=== PATIENT | male | born 1940 | race American Indian/Alaskan Native ===

== ENCOUNTER 2018-03-06 12:22 | Emergency (ER) | payer MEDICARE, MEDICAID ==
--- NOTE | 2018-03-06 12:47 | EDM.PDOC ---
ED HPI GENERAL MEDICAL PROBLEM - General Chief Complaint: Flank Pain Stated Complaint: by ambulance Time Seen by Provider: 03/06/18 12:47 Source of Information: Reports: Patient, EMS, Old Records, RN, RN Notes Reviewed History Limitations: Reports: No Limitations - History of Present Illness INITIAL COMMENTS - FREE TEXT/NARRATIVE: Arrives from home by ambulance with pt stating he is unsure why he his here, but needs to be "checked out" by the doctor. Several family members have come and gone from the pt's ER room to give Hx and state there concerns. Some of the family were having a dispute about an unknown issue, and several were clearly intoxicated. The pt denies any alcohol use. Pt admits to generalized weakness, flank pain yesterday but not currently, loss of appetite, and fatigue. He reports having a non-injury fall 2 days ago. Pt is not able to provide any further history. Onset: Gradual, Unknown/Unsure Duration: Constant, Getting Worse Location: Reports: Generalized Severity: Moderate Improves with: Reports: None Worsens with: Reports: None Associated Symptoms: Reports: No Other Symptoms - Related Data Allergies Allergy/AdvReac Type Severity Reaction Status Date / Time dapsone Allergy Cannot Verified 03/06/18 13:32 Remember isoniazid Allergy Nausea and Verified 03/06/18 13:32 Vomiting tuberculin, purified protein Allergy Swelling Verified 03/06/18 13:32 deriva [Tuberculin,Purif.Prot.Deriv.] Home Meds: Home Meds . [Unable to Verify Home Med List] 03/06/18 [History] Past Medical History HEENT History: Reports: Hard of Hearing, Impaired Vision Cardiovascular History: Reports: High Cholesterol Respiratory History: Reports: TB (treated and negative at follow up per family.) Musculoskeletal History: Reports: Back Pain, Chronic, Osteoarthritis Dermatologic History: Reports: Eczema Social & Family History - Family History Family Medical History: Unobtainable - Tobacco Use Smoking Status *Q: Unknown Ever Smoked - Caffeine Use Caffeine Use: Reports: Coffee - Alcohol Use Alcohol Use History: No Alcohol Use in Last Twelve Months: No - Recreational Drug Use Recreational Drug Use: No Drug Use in Last 12 Months: No - Living Situation & Occupation Living situation: Reports: with Family Occupation: Retired ED ROS GENERAL - Review of Systems Review Of Systems: ROS reveals no pertinent complaints other than HPI. ED EXAM, RENAL/ - Physical Exam Exam: See Below Exam Limited By: No Limitations General Appearance: Alert, No Apparent Distress, Other (frail, elderly, and chronically ill appearing) Eye Exam: Bilateral Eye: Normal Inspection Ears: Normal External Exam, Hearing Grossly Normal Nose: Normal Inspection Throat/Mouth: Normal Lips, Normal Oropharynx, Normal Voice, No Airway Compromise , Other (dry oral membranes) Head: Atraumatic, Normocephalic Neck: Normal Inspection, Supple, Non-Tender, Full Range of Motion Respiratory/Chest: No Respiratory Distress, No Accessory Muscle Use, Chest Non- Tender, Decreased Breath Sounds, Crackles, Rhonchi (Rt upper chest, faint). No : Wheezing Cardiovascular: Regular Rate, Rhythm, No Edema, Tachycardia GI/Abdominal: Normal Bowel Sounds, Soft, Non-Tender, No Distention. No: Guarding, Rigid, Rebound (Male) Exam: Deferred Rectal (Males) Exam: Deferred Back Exam: Normal Inspection. No: CVA Tenderness (L), CVA Tenderness (R) Extremities: Normal Inspection, Normal Range of Motion Neurological: Alert, Oriented, No Motor/Sensory Deficits, Other (generalized weakness) Psychiatric: Normal Mood Skin Exam: Warm, Dry, Intact Course - Vital Signs Last Recorded V/S: Last Vital Signs Temp 37.8 C 03/06/18 12:31 Pulse 99 03/06/18 12:31 Resp 18 03/06/18 12:31 BP 128/66 03/06/18 12:31 Pulse Ox 96 03/06/18 12:31 - Orders/Labs/Meds Orders: Active Orders 24 hr Category Date Time Status Peripheral IV Care [RC] . DIRECTED Care 03/06/18 12:47 Active Chest w Cont [CT] Urgent Exams 03/06/18 14:25 Taken CULTURE BLOOD [BC] Stat Lab 03/06/18 12:50 Received CULTURE BLOOD [BC] Stat Lab 03/06/18 12:55 Received UA W/MICROSCOPIC [URIN] Stat Lab 03/06/18 14:20 Ordered Sodium Chloride 0.9% [Normal Saline] 1,000 ml Med 03/06/18 13:30 Active IV ASDIRECTED Sodium Chloride 0.9% [Saline Flush] Med 03/06/18 12:47 Active 10 ml FLUSH ASDIRECTED PRN Blood Culture x2 Reflex Set [OM.PC] Stat Oth 03/06/18 12:47 Ordered Peripheral IV Insertion Adult [OM.PC] Stat Oth 03/06/18 12:47 Ordered Medication Orders Sodium Chloride (Normal Saline) 1,000 mls @ 250 mls/hr IV ASDIRECTED FRANKI Last Admin: 03/06/18 13:41 Dose: 250 mls/hr Sodium Chloride (Saline Flush) 10 ml FLUSH ASDIRECTED PRN PRN Reason: Keep Vein Open Last Admin: 03/06/18 12:57 Dose: 10 ml Labs: Laboratory Tests 03/06/18 03/06/18 03/06/18 Range/Units 12:55 12:55 12:55 WBC 8.9 (5.0-10.0) 10^3/uL RBC 4.64 (4.6-6.2) 10^6/uL Hgb 13.7 L (14.0-18.0) g/dL Hct 39.6 L (40.0-54.0) % MCV 85.3 (80-100) fL MCH 29.5 (27.0-34.0) pg MCHC 34.6 (33.0-35.0) g/dL Plt Count 238 (150-450) 10^3/uL Neut % (Auto) 81.0 H (42.2-75.2) % Lymph % (Auto) 10.5 L (20.5-50.1) % [place] % (Auto) 8.3 H (2-8) % Eos % (Auto) 0.0 L (1.0-3.0) % Baso % (Auto) 0.2 (0.0-1.0) % Sodium 128 L (135-145) mmol/L Potassium 3.9 (3.6-5.0) mmol/L Chloride 99 L (101-111) mmol/L Carbon Dioxide 22.0 (21.0-31.0) mmol/L Anion Gap 10.9 BUN 16 (7-18) mg/dL Creatinine 0.9 (0.6-1.3) mg/dL Est Cr Clr Drug Dosing 74.97 mL/min Estimated GFR (MDRD) > 60 BUN/Creatinine Ratio 17.77 Glucose 148 H (74-105) mg/dL Lactic Acid 1.7 (0.5-2.2) mmol/L Calcium 8.6 (8.4-10.2) mg/dl Total Bilirubin 1.3 H (0.2-1.0) mg/dL AST 27 (10-42) IU/L ALT 15 (10-60) IU/L Alkaline Phosphatase 78 (42-121) IU/L Total Protein 9.1 H (6.7-8.2) g/dl Albumin 3.1 L (3.2-5.5) g/dl Globulin 6.0 Albumin/Globulin Ratio 0.52 Urine Color (YELLOW) Urine Appearance (CLEAR) Urine pH (5.0-9.0) Ur Specific [place] (1.005-1.030) Urine Protein (NEGATIVE) Urine Glucose (UA) (NEGATIVE) Urine Ketones (NEGATIVE) Urine Occult Blood (NEGATIVE) Urine Nitrite (NEGATIVE) Urine Bilirubin (NEGATIVE) Urine Urobilinogen (0.2-1.0) mg/dL Ur Leukocyte Esterase (NEGATIVE) Urine RBC /HPF Urine WBC (0-5/HPF) /HPF Ur Epithelial Cells /HPF Urine Bacteria (0-FEW/HPF) /HPF Urine Mucus /LPF 03/06/18 Range/Units 14:20 WBC (5.0-10.0) 10^3/uL RBC (4.6-6.2) 10^6/uL Hgb (14.0-18.0) g/dL Hct (40.0-54.0) % MCV (80-100) fL MCH (27.0-34.0) pg MCHC (33.0-35.0) g/dL Plt Count (150-450) 10^3/uL Neut % (Auto) (42.2-75.2) % Lymph % (Auto) (20.5-50.1) % [place] % (Auto) (2-8) % Eos % (Auto) (1.0-3.0) % Baso % (Auto) (0.0-1.0) % Sodium (135-145) mmol/L Potassium (3.6-5.0) mmol/L Chloride (101-111) mmol/L Carbon Dioxide (21.0-31.0) mmol/L Anion Gap BUN (7-18) mg/dL Creatinine (0.6-1.3) mg/dL Est Cr Clr Drug Dosing mL/min Estimated GFR (MDRD) BUN/Creatinine Ratio Glucose (74-105) mg/dL Lactic Acid (0.5-2.2) mmol/L Calcium (8.4-10.2) mg/dl Total Bilirubin (0.2-1.0) mg/dL AST (10-42) IU/L ALT (10-60) IU/L Alkaline Phosphatase (42-121) IU/L Total Protein (6.7-8.2) g/dl Albumin (3.2-5.5) g/dl Globulin Albumin/Globulin Ratio Urine Color Yellow (YELLOW) Urine Appearance Clear (CLEAR) Urine pH 6.0 (5.0-9.0) Ur Specific [place] 1.025 (1.005-1.030) Urine Protein 100 H (NEGATIVE) Urine Glucose (UA) Negative (NEGATIVE) Urine Ketones Negative (NEGATIVE) Urine Occult Blood Trace-intact H (NEGATIVE) Urine Nitrite Negative (NEGATIVE) Urine Bilirubin Small H (NEGATIVE) Urine Urobilinogen 4.0 H (0.2-1.0) mg/dL Ur Leukocyte Esterase Negative (NEGATIVE) Urine RBC 0-5 /HPF Urine WBC 0-5 (0-5/HPF) /HPF Ur Epithelial Cells Occasional /HPF Urine Bacteria Occasional (0-FEW/HPF) /HPF Urine Mucus Few H /LPF Meds: Medications Generic Name Dose Route Start Last Admin Trade Name Freq PRN Reason Stop Dose Admin Sodium Chloride 1,000 mls @ 250 mls/hr 03/06/18 13:30 03/06/18 13:41 Normal Saline IV 250 mls/hr ASDIRECTED FRANKI Administration Sodium Chloride 10 ml 03/06/18 12:47 03/06/18 12:57 Saline Flush FLUSH 10 ml ASDIRECTED PRN Administration Keep Vein Open Discontinued Medications Generic Name Dose Route Start Last Admin Trade Name Freq PRN Reason Stop Dose Admin Acetaminophen 650 mg 03/06/18 13:29 03/06/18 13:42 Tylenol PO 03/06/18 13:30 650 mg NOW ONE Administration Ceftriaxone Sodium 1 gm 03/06/18 13:31 03/06/18 14:27 Rocephin IVPUSH 03/06/18 13:32 1 gm ONETIME ONE Administration Iopamidol 75 ml 03/06/18 14:25 03/06/18 14:50 Isovue-300 (61%) IVPUSH 03/06/18 14:26 75 ml ONETIME ONE Administration - Radiology Interpretation Free Text/Narrative:: Name: SENTHIL THORPE Age: 77Years M Date: 03/06/2018 SSN: -- : [id number] Study: XR CHEST 1 VIEW Requesting Physician: Solis Feng Images: 1 Addl Studies: Provided Clinical History: fever of unknown origin Contrast: Contrast Medium: Contrast Amount: Contrast Method: Page 1 of 2 EXAM: XR Chest, 1 View EXAM DATE/TIME: 03/06/2018 1:35 PM CLINICAL HISTORY: The patient is 77 years old and is male; Signs and symptoms; Fever; Additional info: Fever of unknown origin TECHNIQUE: Frontal view of the chest. COMPARISON: CT - Chest w Cont 2013-12-22 14:20 FINDINGS: Lungs: The jasmin appear prominent bilaterally. There is mild generalized interstitial opacity bilaterally, without focal consolidation. Pleural space: Unremarkable. No pneumothorax. Heart: Unremarkable. No cardiomegaly. Mediastinum: Unremarkable. Bones/joints: Degenerative changes involve the spine. IMPRESSION: 1. Mild generalized interstitial opacity bilaterally, could reflect edema or pneumonitis, without focal consolidation. 2. Prominent appearance of the bilateral jasmin. Underlying lymphadenopathy is not excluded. Consider CT. SENTHIL THORPE | Final Radiology Report CONFIDENTIALITY STATEMENT This report is intended only for use by the referring physician, and only in accordance with law. If you received this in error, call [phone]. Page 2 of 2 Thank you for allowing us to participate in the care of your patient. Dictated and Authenticated by: Alexis Omalley MD 03/06/2018 2:24 PM Central Time ([place] & [place]) Final Radiology Report Call: [phone] assistance Online chat: [email or web address] Name: SENTHIL THORPE Age: 77Years M Date: 03/06/2018 SSN: -- : [id number] Study: CT CHEST W Requesting Physician: Solis Feng Images: 284 Addl Studies: Provided Clinical History: FEVER OF UNKNOWN ORIGIN, ABDNORMAL CXR Contrast: With Contrast Medium: ISOVUE 300 Contrast Amount: 75 mL Contrast Method: LEFT WRIST Page 1 of 2 EXAM: CT Chest With Intravenous Contrast CLINICAL HISTORY: 77 years old, male; Signs and symptoms; Fever; Additional info: Fever of unknown origin, abdnormal cxr TECHNIQUE: Axial computed tomography images of the chest with intravenous contrast. All CT scans at this facility use one or more dose reduction techniques, viz.: automated exposure control; ma/kV adjustment per patient size (including targeted exams where dose is matched to indication; i.e. head); or iterative reconstruction technique. Coronal and sagittal reformatted images were created and reviewed. CONTRAST: 75 mL of ISOVUE 300 administered intravenously. COMPARISON: CT - Chest w Cont 2013-12-22 14:20 FINDINGS: Lungs: Cavitating spiculated mass in the right upper lobe measures 2.9 x 3 x 3.3 cm. 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 Bibasilar atelectasis left greater than right. Patchy infiltrate in the subpleural aspect of the lingula lobe consistent with either atelectasis or foci of peripheral airway disease. Pleural space: Unremarkable. No pneumothorax. No significant effusion. Heart: Unremarkable. No cardiomegaly. No significant pericardial effusion. Bones/joints: The spine demonstrates mild degenerative changes at multiple levels. No acute fracture. No dislocation. Soft tissues: Unremarkable. MAURILIOSENTHIL | Final Radiology Report CONFIDENTIALITY STATEMENT This report is intended only for use by the referring physician, and only in accordance with law. If you received this in error, call [phone]. Page 2 of 2 Vasculature: The aorta demonstrates mild atherosclerotic calcification. There is moderate atherosclerotic calcification of the coronary arteries. No thoracic aortic aneurysm. Lymph nodes: Mediastinal lymphadenopathy measuring 1.4 cm adjacent to the aorta and left pulmonary artery, 1.4 cm anterior to the laura posterior to the superior vena cava, 1.7 cm and 1.9 cm in the azygoesophageal recess. Enlarged hilar lymph nodes measure 2.6 cm on the right and 2.3 cm on the left. Findings progressed in comparison to the prior examination. IMPRESSION: 1. Mediastinal lymphadenopathy measuring 1.4 cm adjacent to the aorta and left pulmonary artery, 1.4 cm anterior to the laura posterior to the superior vena cava, 1.7 cm and 1.9 cm in the azygoesophageal recess. Enlarged hilar lymph nodes measure 2.6 cm on the right and 2.3 cm on the left. Findings progressed in comparison to the prior examination. 2. Cavitating spiculated mass in the right upper lobe measures 2.9 x 3 x 3.3 cm. 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 Thank you for allowing us to participate in the care of your patient. Dictated and Authenticated by: Davide Mcfarland MD 03/06/2018 3:34 PM Central Time ([place] & [place]) Departure - Departure Time of Disposition: 16:55 Disposition: DC/Tfer to [facility] 02 Condition: Serious, Undetermined Clinical Impression: Fever of unknown origin, Lung mass, Mediastinal lymphadenopathy, Hilar lymphadenopathy, Hyponatremia - Discharge Information Forms: ED Department Discharge, Interfacility Transfer EMTALA - My Orders Last 24 Hours: My Active Orders 03/06/18 12:47 Peripheral IV Care [RC] . DIRECTED Sodium Chloride 0.9% [Saline Flush] 10 ml FLUSH ASDIRECTED PRN Blood Culture x2 Reflex Set [OM.PC] Stat Peripheral IV Insertion Adult [OM.PC] Stat 03/06/18 12:50 CULTURE BLOOD [BC] Stat 03/06/18 12:55 CULTURE BLOOD [BC] Stat 03/06/18 13:30 Sodium Chloride 0.9% [Normal Saline] 1,000 ml IV ASDIRECTED 03/06/18 14:20 UA W/MICROSCOPIC [URIN] Stat 03/06/18 14:25 Chest w Cont [CT] Urgent - Assessment/Plan Last 24 Hours: My Active Orders 03/06/18 12:47 Peripheral IV Care [RC] . DIRECTED Sodium Chloride 0.9% [Saline Flush] 10 ml FLUSH ASDIRECTED PRN Blood Culture x2 Reflex Set [OM.PC] Stat Peripheral IV Insertion Adult [OM.PC] Stat 03/06/18 12:50 CULTURE BLOOD [BC] Stat 03/06/18 12:55 CULTURE BLOOD [BC] Stat 03/06/18 13:30 Sodium Chloride 0.9% [Normal Saline] 1,000 ml IV ASDIRECTED 03/06/18 14:20 UA W/MICROSCOPIC [URIN] Stat 03/06/18 14:25 Chest w Cont [CT] Urgent
[2018-03-06] MEDS: Sodium Chloride 0.9% 10 ML Syringe FLUSH PRN (12:57)
[2018-03-06 13:26] LABS: CHLORIDE,CL 99 mmol/L (101-111); SODIUM,NA 128 mmol/L (135-145)
[2018-03-06] MEDS: Sodium Chloride 0.9% 1,000 ML IV SCH (13:41)
[2018-03-06] MEDS: Acetaminophen 325 MG Tab PO ONE (13:42)
[2018-03-06] MEDS: cefTRIAXone 1 GM Vial IVPUSH ONE (14:27)
[2018-03-06] MEDS: Iopamidol 612 MG/ML 75 ML Bottle IVPUSH ONE (14:50)
== END 2018-03-06 17:20 ==
LOC: DL.ED 12:22
DX: E87.1 Hypo-osmolality and hyponatremia (principal); R59.0 Localized enlarged lymph nodes; R91.8 Other nonspecific abnormal finding of lung field; Z88.8 Allergy status to other drugs, medicaments and biological substances
CPT/HCPCS: 36415; 71045; 71260; 80053; 81001; 83605; 85025; 87040; 96374; 99284; 99285; A9270-GY; J0696; J7030; J7050; Q9967

== ENCOUNTER 2019-02-27 08:38 | Inpatient (IN) | payer MEDICARE, MEDICAID ==
[2019-02-27] MEDS ORDERED: Sodium Chloride 0.9% 500 ML IV SCH ×4 (09:00→20:30)
[2019-02-27 09:17] LABS: ANION GAP 10.9; CHLORIDE,CL 102 mmol/L (101-111); SODIUM,NA 128 mmol/L (135-145)
--- NOTE | 2019-02-27 10:14 | EDM.PDOC ---
Scribed by Olivia Lopez 02/27/19 0910 for Erin Dozier NP ED HPI GENERAL MEDICAL PROBLEM - General Chief Complaint: General Stated Complaint: UNKNOWN-AMBULANCE Time Seen by Provider: 02/27/19 08:48 Source of Information: Reports: Patient, EMS, EMS Notes Reviewed, RN, RN Notes Reviewed History Limitations: Reports: No Limitations - History of Present Illness INITIAL COMMENTS - FREE TEXT/NARRATIVE: 78 yr old diabetic Patient presents to ER by [facility] with hx of CAD, lung CA (squamous cell) & receiving chemotherapy. He has had nausea and diarrhea x 2 days. No abdominal pain. His stools have been loose and dark brown. He had many stools yesterday and 1 loose stool today; dark brown in color. Generalized weakness. No oral fluids for 2 days. He is thin and frail. He had chemo last week [facility]. 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 Onset: Gradual Duration: Constant Location: Reports: Generalized Quality: Reports: Ache Severity: Moderate Improves with: Reports: None Worsens with: Reports: None Associated Symptoms: Reports: No Other Symptoms - Related Data Allergies Allergy/AdvReac Type Severity Reaction Status Date / Time dapsone Allergy Cannot Verified 02/27/19 09:22 Remember isoniazid Allergy Nausea and Verified 02/27/19 09:22 Vomiting prochlorperazine Allergy Dizziness Verified 02/27/19 09:22 [From Compazine] tuberculin, purified protein Allergy Swelling Verified 02/27/19 09:22 deriva [Tuberculin,Purif.Prot.Deriv.] Home Meds: Home Meds Gabapentin [Neurontin] 600 mg PO BEDTIME 08/20/18 [History] atorvaSTATin [Lipitor] 10 mg PO BEDTIME 08/20/18 [History] Ondansetron [Zofran] 8 mg PO Q8H PRN 08/26/18 [History] Aspirin [Ecotrin] 81 mg PO DAILY 09/07/18 [History] Dronabinol [Marinol] 5 mg PO BID 09/07/18 [History] Dutasteride 0.5 mg PO DAILY 09/07/18 [History] Midodrine 10 mg PO TIDAC 09/07/18 [History] Sodium Chloride 2 gm PO TIDMEALS 09/07/18 [History] hydrOXYzine HCl [hydrOXYzine] 25 mg PO Q8H PRN 09/07/18 [History] metFORMIN [Glucophage] 500 mg PO BIDMEALS #60 tablet 09/13/18 [Rx] Past Medical History HEENT History: Reports: Cataract, Hard of Hearing, Impaired Vision Cardiovascular History: Reports: Aneurysm, High Cholesterol, Hypertension, PVD, Other (See Below) Other Cardiovascular History: buergers disease Respiratory History: Reports: TB, Other (See Below) Other Respiratory History: latent TB; Musculoskeletal History: Reports: Arthritis, Back Pain, Chronic, Osteoarthritis Psychiatric History: Reports: None Endocrine/Metabolic History: Reports: Diabetes, Type II Hematologic History: Reports: B12 Deficiency Immunologic History: Reports: None Oncologic (Cancer) History: Reports: Lung Dermatologic History: Reports: Eczema - Past Surgical History HEENT Surgical History: Reports: Cataract Surgery, Other (See Below) Other HEENT Surgeries/Procedures: eye ptosis surgery; facial reconstruction surgery Respiratory Surgical History: Reports: Lung Biopsies Musculoskeletal Surgical History: Reports: Other (See Below) Other Musculoskeletal Surgeries/Procedures:: knee surgery Oncologic Surgical History: Reports: Other (See Below) Other Oncologic Surgeries/Procedures: 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 ED EXAM, GENERAL - Physical Exam Exam: See Below Exam Limited By: No Limitations General Appearance: Other (thin and frail) Eye Exam: Bilateral Eye: PERRL Ears: Normal External Exam, Normal Canal, Hearing Grossly Normal, Normal TMs Nose: Normal Inspection, Normal Mucosa, No Blood Throat/Mouth: Other (dry mucous membranes. Dry tongue) Head: Atraumatic, Normocephalic Neck: Normal Inspection, Supple, Non-Tender, Full Range of Motion Respiratory/Chest: Other (right port access) Cardiovascular: Normal Peripheral Pulses, Regular Rate, Rhythm, No Edema, No Gallop, No JVD, No Murmur, No Rub GI/Abdominal: Other (No abdominal pain.) Extremities: Other (no lower extremity edema) Neurological: Alert, Oriented, CN II-XII Intact, Normal Cognition, Normal Gait, Normal Reflexes, No Motor/Sensory Deficits Skin Exam: Warm, Dry, Intact, Normal Color, No Rash Course - Vital Signs Last Recorded V/S: Last Vital Signs Temp 36.4 C 02/27/19 08:55 Pulse 83 02/27/19 08:55 Resp 16 02/27/19 08:55 BP 104/56 L 02/27/19 08:55 Pulse Ox 82 L 02/27/19 08:55 - Orders/Labs/Meds Orders: Active Orders 24 hr Category Date Time Status UA W/MARTIN RFLX IF INDICATED [URIN] Stat Lab 02/27/19 09:00 Ordered Sodium Chloride 0.9% [Normal Saline] 500 ml Med 02/27/19 09:00 Active IV .BOLUS Medication Orders Sodium Chloride (Normal Saline) 500 mls @ 999 mls/hr IV .BOLUS FRANKI Last Admin: 02/27/19 08:58 Dose: 999 mls/hr Labs: Laboratory Tests 02/27/19 02/27/19 Range/Units 08:53 08:53 WBC 6.0 (5.0-10.0) 10^3/uL RBC 3.69 L (4.6-6.2) 10^6/uL Hgb 10.4 L (14.0-18.0) g/dL Hct 30.6 L (40.0-54.0) % MCV 82.9 D (80-100) fL MCH 28.2 (27.0-34.0) pg MCHC 34.0 (33.0-35.0) g/dL Plt Count 175 D (150-450) 10^3/uL Neut % (Auto) 70.1 (42.2-75.2) % Lymph % (Auto) 12.5 L (20.5-50.1) % [place] % (Auto) 14.1 H (2-8) % Eos % (Auto) 3.3 H (1.0-3.0) % Baso % (Auto) 0.0 (0.0-1.0) % Sodium 128 L (135-145) mmol/L Potassium 3.9 (3.6-5.0) mmol/L Chloride 102 (101-111) mmol/L Carbon Dioxide 19.0 L (21.0-31.0) mmol/L Anion Gap 10.9 BUN 14 (7-18) mg/dL Creatinine 0.6 (0.6-1.3) mg/dL Est Cr Clr Drug Dosing TNP Estimated GFR (MDRD) > 60 BUN/Creatinine Ratio 23.33 Glucose 125 H (74-105) mg/dL Calcium 7.8 L (8.4-10.2) mg/dl Total Bilirubin 1.6 H (0.2-1.0) mg/dL AST 15 (10-42) IU/L ALT 12 (10-60) IU/L Alkaline Phosphatase 76 (42-121) IU/L Total Protein 5.7 L (6.7-8.2) g/dl Albumin 2.6 L (3.2-5.5) g/dl Globulin 3.1 Albumin/Globulin Ratio 0.84 Meds: Medications Generic Name Dose Route Start Last Admin Trade Name Freq PRN Reason Stop Dose Admin Sodium Chloride 500 mls @ 999 mls/hr 02/27/19 09:00 02/27/19 08:58 Normal Saline IV 999 mls/hr .BOLUS FRANKI Administration - Re-Assessments/Exams Free Text/Narrative Re-Assessment/Exam: 02/27/19 09:51 Thin frail male on chemo therapy; with last treatment last week has had 2 days of nausea and loose dark brown stools. No abdominal pain or vomiting. Not able to eat or drink. Mucus membranes are very dry and SBP 90-100's. Denies any difficulty breathing only that he is very weak. His dehydrations was improved with IV fluids. His hyponatremia at 128 with his last base line of 134. Kidney function is good creat 0.6 and GFR >60. Serum osmo & Urine osmo pending. Will admit for rehydration and correction of hyponatremia; handed over to Dr. Everett 02/27/19 09:55 02/27/19 09:55 02/27/19 10:01 02/27/19 10:13 Departure - Departure Time of Disposition: 10:11 Disposition: Admitted As Inpatient 66 Condition: Good, Fair Clinical Impression: S/P chemotherapy, time since 4-12 weeks, Hyponatremia, Dehydration Diarrhea Qualifiers: Diarrhea type: unspecified type Qualified Code(s): R19.7 - Diarrhea, unspecified - Discharge Information *PRESCRIPTION DRUG MONITORING PROGRAM REVIEWED*: Not Applicable *COPY OF PRESCRIPTION DRUG MONITORING REPORT IN PATIENT [place]: Not Applicable Instructions: Hyponatremia, Rehydration, Adult Forms: ED Department Discharge - My Orders Last 24 Hours: My Active Orders 02/27/19 09:00 UA W/MARTIN RFLX IF INDICATED [URIN] Stat Sodium Chloride 0.9% [Normal Saline] 500 ml IV .BOLUS - Assessment/Plan Last 24 Hours: My Active Orders 02/27/19 09:00 UA W/MARTIN RFLX IF INDICATED [URIN] Stat Sodium Chloride 0.9% [Normal Saline] 500 ml IV .BOLUS I have read and agree with the documentation that has been completed regarding this visit. By signing this record, I attest that the documentation was completed in my physical presence and is an accurate record of the encounter.
[2019-02-27] MEDS ORDERED: Ondansetron 4 MG Tab.DIS PO PRN (10:57)
[2019-02-27] MEDS ORDERED: Acetaminophen/HYDROcodone 325-10 MG Tab PO PRN (10:57)
[2019-02-27] MEDS ORDERED: hydrOXYzine HCl 25 MG Tab PO PRN (11:03)
[2019-02-27] MEDS ORDERED: Sodium Chloride 0.9% 500 ML IV ONE (11:15)
[2019-02-27] MEDS: Famotidine 20 MG Tab PO SCH ×2 (11:49→20:24)
[2019-02-27] MEDS: Sodium Chloride 0.9% 1,000 ML IV SCH ×2 (11:49→19:54)
[2019-02-27] MEDS: Sodium Chloride 1 GM Tab PO SCH ×3 (11:49→17:17)
[2019-02-27] MEDS: Gabapentin 300 MG Cap PO SCH ×2 (15:06→20:24)
--- NOTE | 2019-02-27 16:45 | HP ---
CHIEF COMPLAINT: Weak and diarrhea. HISTORY OF PRESENT ILLNESS: The patient is a 78-year-old gentleman who was admitted through the emergency room because of generalized weakness and diarrhea. The patient has a history of lung cancer and has been getting chemotherapy and had last chemotherapy last week and for the last 2 days, the patient has not had any significant oral intake because of nausea and diarrhea. He mentioned every time he eats, it just goes out with his diarrhea. He denies any abdominal pain. He denies any vomiting. He admits that he feels chilly on occasion, but no chest pain, shortness of breath, headache, dysuria nor any other complaints. Because of this, he was brought in by [facility] to the emergency room, and the patient was noted to be dehydrated and hyponatremic. Because of this, he was then admitted for further evaluation and management. PAST MEDICAL HISTORY: Remarkable for hypertension, peripheral vascular disease, dyslipidemia, arthritis, type 2 diabetes mellitus, B12 deficiency, and lung cancer, currently on chemotherapy. FAMILY HISTORY: Noncontributory. SOCIAL HISTORY: The patient is a . The patient is a former smoker, but quit 15 years ago, and he is a nonalcoholic drinker. REVIEW OF SYSTEMS: As in HPI. The rest of the review of systems is negative. HOME MEDICATIONS: 1. Gabapentin. 2. Lipitor. 3. Zofran. 4. Aspirin. 5. Marinol. 6. Dutasteride. 7. Midodrine. 8. Sodium chloride. 9. Hydroxyzine. 10.Metformin. ALLERGIES: Dapsone and isoniazid. PHYSICAL EXAMINATION: General: The patient looks frail/weak, but alert and oriented, not in any acute distress. SHEENT: Skin turgor diminished, but mucous membranes moist. There is no JVD. No lymphadenopathy. Heart: Regular rate and rhythm. Normal S1 and S2. No gallops. No rubs. Lungs: Diminished breath sounds on both bases with no significant crackles. No wheezing. Abdomen: Soft, nontender. Bowel sounds positive. Extremities: Negative for any pedal edema. No calf tenderness. LABORATORY DATA: CBC: WBC is 6, hemoglobin is 10.4, hematocrit is 30.6, platelet is 175. Comp panel: Sodium is 128, total bilirubin 1.6, glucose is 125, total protein is 5.7, albumin is 2.6. The rest of the panel unremarkable. ADMITTING DIAGNOSES: 1. Dehydration and hyponatremia. 2. Gastroenteritis/diarrhea. 3. History of lung cancer, on chemotherapy. 4. Type 2 diabetes mellitus. 5. Osteoarthritis. TREATMENT PLAN: The patient is going to be admitted to General Medicine floor. He will be started on IV fluids. Stool will be sent for cultures and sodium will be repleted, and the rest of the management as necessary and the patient is full code. [facility] /[id number]
[2019-02-27] MEDS: metFORMIN 500 MG Tab PO SCH (17:17)
[2019-02-28] MEDS: Sodium Chloride 0.9% 1,000 ML IV SCH ×3 (04:43→21:57)
[2019-02-28 06:54] LABS: CHLORIDE,CL 104 mmol/L (101-111); SODIUM,NA 130 mmol/L (135-145)
[2019-02-28] MEDS ORDERED: Aspirin 81 MG Tab.EC PO SCH (09:00)
[2019-02-28] MEDS: Sodium Chloride 1 GM Tab PO SCH (09:10)
[2019-02-28] MEDS: Gabapentin 300 MG Cap PO SCH ×3 (09:11→20:55)
[2019-02-28] MEDS: metFORMIN 500 MG Tab PO SCH (09:11)
[2019-02-28] MEDS: Famotidine 20 MG Tab PO SCH ×2 (09:11→20:55)
[2019-02-28] MEDS: Midodrine 2.5 MG Tab PO SCH ×3 (09:16→17:43)
--- NOTE | 2019-02-28 11:34 | PCM.PN ---
- General Info Date of Service: 02/28/19 Subjective Update: Patient indicates that he feels nauseated this morning Also admits to feeling very weak. Does not feel like getting out of bed because of weakness. Denies significant pain. - Review of Systems General: Reports: Weakness, Fatigue Pulmonary: Reports: No Symptoms Cardiovascular: Reports: No Symptoms Gastrointestinal: Reports: Diarrhea, Nausea Skin: Reports: No Symptoms - Patient Data Vitals - Most Recent: Last Vital Signs Temp 37.5 C 02/28/19 07:56 Pulse 71 02/28/19 07:56 Resp 18 02/28/19 07:56 BP 102/58 L 02/28/19 07:56 Pulse Ox 95 02/28/19 07:56 Weight - Most Recent: 64.954 kg I&O - Last 24 Hours: Intake & Output 02/27/19 02/28/19 02/28/19 22:59 06:59 14:59 Intake Total 1009 240 Output Total 200 500 600 Balance 809 -500 -360 Lab Results Last 24 Hours: Laboratory Results - last 24 hr 02/27/19 02/27/19 02/27/19 Range/Units 11:23 16:50 20:42 WBC (5.0-10.0) 10^3/uL RBC (4.6-6.2) 10^6/uL Hgb (14.0-18.0) g/dL Hct (40.0-54.0) % MCV (80-100) fL MCH (27.0-34.0) pg MCHC (33.0-35.0) g/dL Plt Count (150-450) 10^3/uL Neut % (Auto) (42.2-75.2) % Lymph % (Auto) (20.5-50.1) % [place] % (Auto) (2-8) % Eos % (Auto) (1.0-3.0) % Baso % (Auto) (0.0-1.0) % Add Manual Diff Neutrophils % (Manual) (42-75) % Band Neutrophils % % Lymphocytes % (Manual) (20-50) % Monocytes % (Manual) (2-8) % Eosinophils % (Manual) (1-3) % Sodium (135-145) mmol/L Potassium (3.6-5.0) mmol/L Chloride (101-111) mmol/L Carbon Dioxide (21.0-31.0) mmol/L Anion Gap BUN (7-18) mg/dL Creatinine (0.6-1.3) mg/dL Est Cr Clr Drug Dosing mL/min Estimated GFR (MDRD) Glucose (74-105) mg/dL POC Glucose 107 125 H (83-110) mg/dl Calcium (8.4-10.2) mg/dl Urine Color Yellow (YELLOW) Urine Appearance Clear (CLEAR) Urine pH 8.0 (5.0-9.0) Ur Specific [place] 1.020 (1.005-1.030) Urine Protein 30 H (NEGATIVE) Urine Glucose (UA) Negative (NEGATIVE) Urine Ketones Negative (NEGATIVE) Urine Occult Blood Negative (NEGATIVE) Urine Nitrite Negative (NEGATIVE) Urine Bilirubin Negative (NEGATIVE) Urine Urobilinogen 2.0 H (0.2-1.0) mg/dL Ur Leukocyte Esterase Negative (NEGATIVE) Urine RBC 0-5 /HPF Urine WBC 0-5 (0-5/HPF) /HPF Ur Epithelial Cells Rare (NOT SEEN) /HPF Urine Bacteria Few (0-FEW/HPF) /HPF Urine Mucus Moderate H (NOT SEEN) /LPF 02/28/19 02/28/19 02/28/19 Range/Units 06:17 06:17 07:45 WBC 13.9 H (5.0-10.0) 10^3/uL RBC 3.31 L (4.6-6.2) 10^6/uL Hgb 9.3 L (14.0-18.0) g/dL Hct 27.6 L (40.0-54.0) % MCV 83.4 (80-100) fL MCH 28.1 (27.0-34.0) pg MCHC 33.7 (33.0-35.0) g/dL Plt Count 158 (150-450) 10^3/uL Neut % (Auto) 85.6 H (42.2-75.2) % Lymph % (Auto) 7.2 L (20.5-50.1) % [place] % (Auto) 6.5 (2-8) % Eos % (Auto) 0.6 L (1.0-3.0) % Baso % (Auto) 0.1 (0.0-1.0) % Add Manual Diff Yes Neutrophils % (Manual) 75 (42-75) % Band Neutrophils % 15 % Lymphocytes % (Manual) 5 L (20-50) % Monocytes % (Manual) 3 (2-8) % Eosinophils % (Manual) 2 (1-3) % Sodium 130 L (135-145) mmol/L Potassium 4.0 (3.6-5.0) mmol/L Chloride 104 (101-111) mmol/L Carbon Dioxide 19.0 L (21.0-31.0) mmol/L Anion Gap 11.0 BUN 8 (7-18) mg/dL Creatinine 0.5 L (0.6-1.3) mg/dL Est Cr Clr Drug Dosing 111.87 mL/min Estimated GFR (MDRD) > 60 Glucose 80 (74-105) mg/dL POC Glucose 72 L (83-110) mg/dl Calcium 7.8 L (8.4-10.2) mg/dl Urine Color (YELLOW) Urine Appearance (CLEAR) Urine pH (5.0-9.0) Ur Specific [place] (1.005-1.030) Urine Protein (NEGATIVE) Urine Glucose (UA) (NEGATIVE) Urine Ketones (NEGATIVE) Urine Occult Blood (NEGATIVE) Urine Nitrite (NEGATIVE) Urine Bilirubin (NEGATIVE) Urine Urobilinogen (0.2-1.0) mg/dL Ur Leukocyte Esterase (NEGATIVE) Urine RBC /HPF Urine WBC (0-5/HPF) /HPF Ur Epithelial Cells (NOT SEEN) /HPF Urine Bacteria (0-FEW/HPF) /HPF Urine Mucus (NOT SEEN) /LPF Clement Results Last 24 Hours: Microbiology 02/27/19 16:10 Stool Culture - Preliminary Stool / Feces NORMAL ENTERIC MAYE. NO SALMONELLA, SHIGELLA, CAMPYLOBACTER OR E.COLI O157 ISOLATED. Med Orders - Current: Current Medications Acetaminophen (Tylenol) 650 mg PO Q4H PRN PRN Reason: Pain (Mild 1-3)/fever Hydrocodone Bitart/Acetaminophen ([place] 325-10 Mg) 0.5 tab PO Q4H PRN PRN Reason: Pain (moderate 4-6) Aspirin (Halfprin) 81 mg PO DAILY [facility] Last Admin: 02/28/19 09:11 Dose: 81 mg Famotidine (Pepcid) 20 mg PO BID [facility] Last Admin: 02/28/19 09:11 Dose: 20 mg Gabapentin (Neurontin) 300 mg PO TID [facility] Last Admin: 02/28/19 09:11 Dose: 300 mg Hydroxyzine HCl (Atarax) 25 mg PO Q8H PRN PRN Reason: Itching Sodium Chloride (Normal Saline) 1,000 mls @ 125 mls/hr IV ASDIRECTED [facility] Last Admin: 02/28/19 04:43 Dose: 125 mls/hr Sodium Chloride (Normal Saline) 500 mls @ 500 mls/hr IV .BOLUS [facility] Last Admin: 02/27/19 20:30 Dose: 500 mls/hr Metformin HCl (Glucophage) 500 mg PO BIDMEALS [facility] Last Admin: 02/28/19 09:11 Dose: 500 mg Midodrine (Midodrine) 10 mg PO TIDAC [facility] Last Admin: 02/28/19 09:16 Dose: 10 mg Non-Formulary Medication (Dronabinol [Marinol]) 5 mg PO BID [facility] Ondansetron HCl (Zofran Odt) 4 mg PO Q4H PRN PRN Reason: nausea, able to take PO Discontinued Medications Sodium Chloride (Normal Saline) 500 mls @ 999 mls/hr IV .BOLUS [facility] Last Admin: 02/27/19 08:58 Dose: 999 mls/hr Sodium Chloride (Normal Saline) 500 mls @ 125 mls/hr IV ASDIRECTED [facility] Last Admin: 02/27/19 09:52 Dose: 500 mls/hr Sodium Chloride (Normal Saline) 500 mls @ 125 mls/hr IV ASDIRECTED [facility] Sodium Chloride (Sodium Chloride) 2 gm PO TIDMEALS [facility] Last Admin: 02/28/19 09:10 Dose: 2 gm - Exam General: Alert, Oriented, Cooperative HEENT: Pupils Equal, Pupils Reactive, EOMI, Mucous Membr. Moist/[place] Neck: Supple Lungs: Clear to Auscultation, Normal Respiratory Effort GI/Abdominal Exam: Normal Bowel Sounds, Soft, Non-Tender, No Organomegaly, No Distention, No Abnormal Bruit, No Mass, Pelvis Stable Extremities: Normal Inspection, Normal Range of Motion, Non-Tender, No Pedal Edema, Normal Capillary Refill - Problem List Review Problem List Initiated/Reviewed/Updated: Yes - My Orders Last 24 Hours: My Active Orders 02/27/19 18:00 metFORMIN [Glucophage] 500 mg PO BIDMEALS 02/27/19 20:30 Sodium Chloride 0.9% [Normal Saline] 500 ml IV .BOLUS 02/28/19 08:00 Modified [place] Swallow Screen [Nursing Bedside Swallow Screen] [RC] ASDIRECTED 02/28/19 11:27 OT Evaluation and Treatment [CONS] Routine PT Evaluation and Treatment [CONS] Routine 02/28/19 Lunch Regular Diet [DIET] - Plan Plan:: Assessment/plan: #. Diarrhea The patient has been having profuse diarrhea Last diarrhea was yesterday evening This is probably due to viral illness. Patient recently had chemotherapy and that can also result in diarrhea #. Dehydration This is secondary to gastrointestinal fluid and electrolyte loss #. Hyponatremia Serum sodium is gradually coming up Patient indicates that he hates sodium chloride tablet #. Lung cancer Has been on chemotherapy Last chemotherapy was about a week ago #. Diabetes mellitus type 2 Has been on oral metformin Blood sugar was down to 72 this morning Plan: Continue intravenous rehydration Intravenous fluid bolus given for hypotension Consult physical therapy Consult occupational therapy Obtain repeat basic metabolic panel obtain repeat complete blood count Discontinue sodium chloride tablets Start patient on general diet
[2019-02-28] MEDS: DRONABINOL 5 MG PO SCH (14:12)
[2019-02-28] MEDS: Finasteride 5 MG Tab PO SCH (20:55)
[2019-03-01] MEDS: Sodium Chloride 0.9% 1,000 ML IV SCH ×2 (07:46→17:30)
[2019-03-01] MEDS ORDERED: metFORMIN 500 MG Tab PO SCH (09:00)
[2019-03-01] MEDS: Midodrine 2.5 MG Tab PO SCH ×3 (09:11→17:02)
[2019-03-01] MEDS: Famotidine 20 MG Tab PO SCH ×2 (09:12→21:25)
[2019-03-01] MEDS: Gabapentin 300 MG Cap PO SCH ×2 (09:13→21:24)
--- NOTE | 2019-03-01 11:11 | PCM.PN ---
- General Info Date of Service: 03/01/19 - Review of Systems General: Reports: Weakness Pulmonary: Reports: Shortness of Breath, Cough Gastrointestinal: Reports: Decreased Appetite, Other (Diarrhea has improved) Musculoskeletal: Reports: No Symptoms - Patient Data Vitals - Most Recent: Last Vital Signs Temp 37.2 C 03/01/19 08:06 Pulse 78 03/01/19 08:06 Resp 18 03/01/19 08:06 BP 98/52 L 03/01/19 08:06 Pulse Ox 95 03/01/19 08:06 Weight - Most Recent: 64.954 kg I&O - Last 24 Hours: Intake & Output 02/28/19 03/01/19 03/01/19 22:59 06:59 14:59 Intake Total 1320 Output Total 1050 200 500 Balance -1050 -200 820 Lab Results Last 24 Hours: Laboratory Results - last 24 hr 02/27/19 02/27/19 02/28/19 Range/Units 08:53 11:23 12:21 POC Glucose 91 (83-110) mg/dl Serum Osmolality 269 L (275-295) mosm/kg Urine Osmolality 874 (300-900) mosm/kg 02/28/19 03/01/19 Range/Units 16:48 07:45 POC Glucose 87 69 L (83-110) mg/dl Serum Osmolality (275-295) mosm/kg Urine Osmolality (300-900) mosm/kg Clement Results Last 24 Hours: Microbiology 02/27/19 16:10 Clostridioides difficile (PCR) - Final Stool / Feces 02/27/19 16:10 Shiga Toxin I & II - Final Stool / Feces 02/27/19 16:10 Stool Culture - Preliminary Stool / Feces NORMAL ENTERIC MAYE 2 DAYS Med Orders - Current: Current Medications Acetaminophen (Tylenol) 650 mg PO Q4H PRN PRN Reason: Pain (Mild 1-3)/fever Hydrocodone Bitart/Acetaminophen ([place] 325-10 Mg) 0.5 tab PO Q4H PRN PRN Reason: Pain (moderate 4-6) Aspirin (Halfprin) 81 mg PO BEDTIME [facility] Famotidine (Pepcid) 20 mg PO BID [facility] Last Admin: 03/01/19 09:12 Dose: 20 mg Finasteride (Proscar) 5 mg PO BEDTIME [facility] Last Admin: 02/28/19 20:55 Dose: 5 mg Gabapentin (Neurontin) 600 mg PO BID [facility] Last Admin: 03/01/19 09:13 Dose: 600 mg Hydroxyzine HCl (Atarax) 25 mg PO Q8H PRN PRN Reason: Itching Sodium Chloride (Normal Saline) 1,000 mls @ 100 mls/hr IV ASDIRECTED [facility] Last Infusion: 03/01/19 10:26 Dose: 100 mls/hr Sodium Chloride (Normal Saline) 500 mls @ 500 mls/hr IV .BOLUS [facility] Last Admin: 02/27/19 20:30 Dose: 500 mls/hr Midodrine (Midodrine) 10 mg PO TIDAC [facility] Last Admin: 03/01/19 09:11 Dose: 10 mg Ondansetron HCl (Zofran Odt) 4 mg PO Q4H PRN PRN Reason: nausea, able to take PO Discontinued Medications Aspirin (Halfprin) 81 mg PO DAILY [facility] Last Admin: 02/28/19 09:11 Dose: 81 mg Gabapentin (Neurontin) 300 mg PO TID [facility] Last Admin: 02/28/19 13:41 Dose: 300 mg Sodium Chloride (Normal Saline) 500 mls @ 999 mls/hr IV .BOLUS [facility] Last Admin: 02/27/19 08:58 Dose: 999 mls/hr Sodium Chloride (Normal Saline) 500 mls @ 125 mls/hr IV ASDIRECTED [facility] Last Admin: 02/27/19 09:52 Dose: 500 mls/hr Sodium Chloride (Normal Saline) 500 mls @ 125 mls/hr IV ASDIRECTED [facility] Metformin HCl (Glucophage) 500 mg PO BIDMEALS [facility] Last Admin: 02/28/19 09:11 Dose: 500 mg Metformin HCl (Glucophage) 500 mg PO DAILY [facility] Last Admin: 03/01/19 09:12 Dose: 500 mg Non-Formulary Medication (Dronabinol [Marinol]) 5 mg PO BID [facility] Last Admin: 02/28/19 14:12 Dose: Not Given Sodium Chloride (Sodium Chloride) 2 gm PO TIDMEALS [facility] Last Admin: 02/28/19 09:10 Dose: 2 gm - Exam Quality Assessment: Supplemental Oxygen General: Alert, Oriented, Cooperative, Other (Weak) Lungs: Clear to Auscultation, Normal Respiratory Effort Cardiovascular: Regular Rate, Regular Rhythm GI/Abdominal Exam: Normal Bowel Sounds, Soft, Non-Tender, No Organomegaly, No Distention, No Abnormal Bruit, No Mass, Pelvis Stable Extremities: Normal Inspection, Normal Range of Motion, Non-Tender, No Pedal Edema, Normal Capillary Refill - Problem List Review Problem List Initiated/Reviewed/Updated: Yes - My Orders Last 24 Hours: My Active Orders 02/28/19 11:27 OT Evaluation and Treatment [CONS] Routine PT Evaluation and Treatment [CONS] Routine 02/28/19 21:00 Finasteride [Proscar] 5 mg PO BEDTIME Gabapentin [Neurontin] 600 mg PO BID 02/28/19 Lunch Regular Diet [DIET] 03/01/19 10:52 BASIC METABOLIC PANEL,BMP [CHEM] Routine 03/01/19 11:06 Incentive Breathing [RT Incentive Spirometry] [RC] ASDIRECTED - Plan Plan:: Assessment/plan: #. Diarrhea Was having profuse diarrhea This is probably due to viral illness. Patient recently had chemotherapy and that can also result in diarrhea Stool for C. difficile and Giardia came back negative Continue intravenous hydration Consult physical and occupational therapy #. Dehydration This is secondary to gastrointestinal fluid and electrolyte loss intravenous normal saline going at 100 mL an hour #. Hyponatremia Serum sodium is gradually coming up Obtain repeat basic metabolic panel continue intravenous fluid with normal saline going at 100 mL an hour #. Lung cancer Has been on chemotherapy Last chemotherapy was about a week ago #. Diabetes mellitus type 2 patient's blood sugar has been running low I will go ahead and discontinue metformin Monitor blood sugar before meals and at bedtime
[2019-03-01 11:26] LABS: ANION GAP 12.1; CHLORIDE,CL 97 mmol/L (101-111); SODIUM,NA 124 mmol/L (135-145)
[2019-03-01] MEDS ORDERED: Potassium Chloride 10 MEQ Tab.ER PO ONE (12:24)
[2019-03-01] MEDS: Sodium Chloride 1 GM Tab PO SCH ×2 (13:28→21:25)
[2019-03-01] MEDS ORDERED: Levofloxacin/Dextrose 5%-Water 750 MG in Premix Bag 1 BAG IV SCH (17:00)
[2019-03-01] MEDS: Acetaminophen 325 MG Tab PO PRN (17:00)
--- NOTE | 2019-03-01 17:01 | CR ---
Clinical history: 78-year-old male with fever. Dilatation: AP portable chest film reveals relative increased prominence of cardiac silhouette with bilateral pulmonary venous congestion since comparable exam 26 August 2018. Right supraclavicular central venous line/port unchanged. Asymmetric dense new retrocardiac consolidation left base (clinical aspiration?). No lung mass or other focal lobar consolidation. CONCLUSION: Cardiovascular decompensation. Left lower lobe pneumonia.
[2019-03-01] MEDS: Levofloxacin/Dextrose 5%-Water 750 MG in Premix Bag 1 BAG IV SCH (17:59)
[2019-03-01] MEDS ORDERED: Sodium Chloride 0.9% 500 ML IV SCH (20:30)
[2019-03-01] MEDS: Finasteride 5 MG Tab PO SCH (21:24)
[2019-03-01] MEDS: Aspirin 81 MG Tab.EC PO SCH (21:25)
[2019-03-01] MEDS ORDERED: Albumin 5% 250 ML IV SCH (23:00)
[2019-03-02] MEDS ORDERED: Sodium Chloride 0.9% 500 ML IV ONE
[2019-03-02] MEDS: Sodium Chloride 0.9% 1,000 ML IV SCH ×2 (01:15→11:22)
[2019-03-02 07:09] LABS: CHLORIDE,CL 103 mmol/L (101-111); SODIUM,NA 128 mmol/L (135-145)
[2019-03-02] MEDS: Gabapentin 300 MG Cap PO SCH ×2 (09:11→21:40)
[2019-03-02] MEDS: Famotidine 20 MG Tab PO SCH ×2 (09:11→21:39)
[2019-03-02] MEDS: Sodium Chloride 1 GM Tab PO SCH ×3 (09:11→21:40)
[2019-03-02] MEDS: Midodrine 2.5 MG Tab PO SCH ×3 (09:11→17:04)
[2019-03-02] MEDS ORDERED: Loperamide 2 MG Cap PO PRN (11:44)
[2019-03-02] MEDS ORDERED: Potassium Chloride 10 MEQ Tab.ER PO ONE (12:45)
--- NOTE | 2019-03-02 13:02 | PCM.PN ---
- General Info Date of Service: 03/02/19 Subjective Update: Patient indicates that he feels nauseated this morning Also admits to feeling very weak. Does not feel like getting out of bed because of weakness. Denies significant pain. - Review of Systems General: Reports: Weakness HEENT: Reports: No Symptoms Pulmonary: Reports: No Symptoms Cardiovascular: Reports: No Symptoms Gastrointestinal: Reports: Diarrhea Genitourinary: Reports: No Symptoms Musculoskeletal: Reports: No Symptoms Skin: Reports: No Symptoms Neurological: Reports: No Symptoms Psychiatric: Reports: No Symptoms - Patient Data Vitals - Most Recent: Last Vital Signs Temp 98.1 F 03/02/19 08:37 Pulse 71 03/02/19 08:37 Resp 20 03/02/19 08:37 BP 101/53 L 03/02/19 08:37 Pulse Ox 100 03/02/19 08:37 Weight - Most Recent: 143 lb 3.2 oz I&O - Last 24 Hours: Intake & Output 03/01/19 03/02/19 03/02/19 22:59 06:59 14:59 Intake Total 1724 1395 Output Total 600 Balance 1124 1395 Lab Results Last 24 Hours: Laboratory Results - last 24 hr 03/01/19 03/01/19 03/01/19 Range/Units 16:54 17:00 18:43 Sodium 124 L (135-145) mmol/L Potassium (3.6-5.0) mmol/L Chloride (101-111) mmol/L Carbon Dioxide (21.0-31.0) mmol/L Anion Gap BUN (7-18) mg/dL Creatinine (0.6-1.3) mg/dL Est Cr Clr Drug Dosing mL/min Estimated GFR (MDRD) Glucose (74-105) mg/dL POC Glucose 143 H (83-110) mg/dl Calcium (8.4-10.2) mg/dl Magnesium (1.8-2.5) mg/dL Urine Color Yellow (YELLOW) Urine Appearance Clear (CLEAR) Urine pH 7.0 (5.0-9.0) Ur Specific [place] 1.020 (1.005-1.030) Urine Protein 30 H (NEGATIVE) Urine Glucose (UA) 100 H (NEGATIVE) Urine Ketones Trace H (NEGATIVE) Urine Occult Blood Negative (NEGATIVE) Urine Nitrite Negative (NEGATIVE) Urine Bilirubin Negative (NEGATIVE) Urine Urobilinogen 1.0 (0.2-1.0) mg/dL Ur Leukocyte Esterase Negative (NEGATIVE) Urine RBC 0-5 /HPF Urine WBC 0-5 (0-5/HPF) /HPF Ur Epithelial Cells Rare (NOT SEEN) /HPF Amorphous Sediment Few (NOT SEEN) /HPF Urine Bacteria Rare (0-FEW/HPF) /HPF Urine Mucus Occasional (NOT SEEN) /[facility] 03/02/19 03/02/19 03/02/19 Range/Units 00:35 06:25 08:09 Sodium 126 L 128 L (135-145) mmol/L Potassium 3.0 L (3.6-5.0) mmol/L Chloride 103 (101-111) mmol/L Carbon Dioxide 19.0 L (21.0-31.0) mmol/L Anion Gap 9.0 BUN 7 (7-18) mg/dL Creatinine 0.5 L (0.6-1.3) mg/dL Est Cr Clr Drug Dosing 111.87 mL/min Estimated GFR (MDRD) > 60 Glucose 98 (74-105) mg/dL POC Glucose 96 (83-110) mg/dl Calcium 7.5 L (8.4-10.2) mg/dl Magnesium (1.8-2.5) mg/dL Urine Color (YELLOW) Urine Appearance (CLEAR) Urine pH (5.0-9.0) Ur Specific [place] (1.005-1.030) Urine Protein (NEGATIVE) Urine Glucose (UA) (NEGATIVE) Urine Ketones (NEGATIVE) Urine Occult Blood (NEGATIVE) Urine Nitrite (NEGATIVE) Urine Bilirubin (NEGATIVE) Urine Urobilinogen (0.2-1.0) mg/dL Ur Leukocyte Esterase (NEGATIVE) Urine RBC /HPF Urine WBC (0-5/HPF) /HPF Ur Epithelial Cells (NOT SEEN) /HPF Amorphous Sediment (NOT SEEN) /HPF Urine Bacteria (0-FEW/HPF) /HPF Urine Mucus (NOT SEEN) /[facility] 03/02/19 03/02/19 03/02/19 Range/Units 11:11 12:27 12:27 Sodium 128 L (135-145) mmol/L Potassium (3.6-5.0) mmol/L Chloride (101-111) mmol/L Carbon Dioxide (21.0-31.0) mmol/L Anion Gap BUN (7-18) mg/dL Creatinine (0.6-1.3) mg/dL Est Cr Clr Drug Dosing mL/min Estimated GFR (MDRD) Glucose (74-105) mg/dL POC Glucose 139 H (83-110) mg/dl Calcium (8.4-10.2) mg/dl Magnesium 1.5 L (1.8-2.5) mg/dL Urine Color (YELLOW) Urine Appearance (CLEAR) Urine pH (5.0-9.0) Ur Specific [place] (1.005-1.030) Urine Protein (NEGATIVE) Urine Glucose (UA) (NEGATIVE) Urine Ketones (NEGATIVE) Urine Occult Blood (NEGATIVE) Urine Nitrite (NEGATIVE) Urine Bilirubin (NEGATIVE) Urine Urobilinogen (0.2-1.0) mg/dL Ur Leukocyte Esterase (NEGATIVE) Urine RBC /HPF Urine WBC (0-5/HPF) /HPF Ur Epithelial Cells (NOT SEEN) /HPF Amorphous Sediment (NOT SEEN) /HPF Urine Bacteria (0-FEW/HPF) /HPF Urine Mucus (NOT SEEN) /[facility] Results Last 24 Hours: Microbiology 02/27/19 16:10 Stool Culture - Final Stool / Feces NORMAL ENTERIC MAYE. NO SALMONELLA, SHIGELLA, CAMPYLOBACTER OR E.COLI O157 ISOLATED. 03/01/19 16:35 Gram Stain - Final Sputum - Expectorated 02/27/19 16:10 Cryptosporidium/Giardia - Final Stool / Feces 02/27/19 16:10 Clostridioides difficile (PCR) - Final Stool / Feces 02/27/19 16:10 Shiga Toxin I & II - Final Stool / Feces Med Orders - Current: Current Medications Acetaminophen (Tylenol) 650 mg PO Q4H PRN PRN Reason: Pain (Mild 1-3)/fever Last Admin: 03/01/19 17:00 Dose: 650 mg Hydrocodone Bitart/Acetaminophen ([place] 325-10 Mg) 0.5 tab PO Q4H PRN PRN Reason: Pain (moderate 4-6) Last Admin: 03/01/19 19:49 Dose: 0.5 tab Aspirin (Halfprin) 81 mg PO BEDTIME [facility] Last Admin: 03/01/19 21:25 Dose: 81 mg Famotidine (Pepcid) 20 mg PO BID [facility] Last Admin: 03/02/19 09:11 Dose: 20 mg Finasteride (Proscar) 5 mg PO BEDTIME [facility] Last Admin: 03/01/19 21:24 Dose: 5 mg Gabapentin (Neurontin) 600 mg PO BID [facility] Last Admin: 03/02/19 09:11 Dose: 600 mg Hydroxyzine HCl (Atarax) 25 mg PO Q8H PRN PRN Reason: Itching Sodium Chloride (Normal Saline) 1,000 mls @ 100 mls/hr IV ASDIRECTED [facility] Last Admin: 03/02/19 11:22 Dose: 100 mls/hr Levofloxacin/Dextrose 750 mg/ (Premix) 150 mls @ 100 mls/hr IV Q24H [facility] Last Infusion: 03/01/19 21:11 Dose: Infused Albumin Human (Buminate 5%) 250 mls @ 125 mls/hr IV ASDIRECTED [facility] Last Infusion: 03/02/19 01:15 Dose: Infused Vancomycin HCl 1 gm/ Sodium (Chloride) 250 mls @ 167 mls/hr IV Q12H [facility] Last Admin: 03/02/19 07:25 Dose: 167 mls/hr Potassium Chloride 10 meq/ (Premix) 100 mls @ 100 mls/hr IV Q1H [facility] Stop: 03/02/19 16:59 Loperamide HCl (Imodium) 2 mg PO Q4H PRN PRN Reason: Diarrhea Midodrine (Midodrine) 10 mg PO TIDAC [facility] Last Admin: 03/02/19 11:21 Dose: 10 mg Ondansetron HCl (Zofran Odt) 4 mg PO Q4H PRN PRN Reason: nausea, able to take PO Sodium Chloride (Sodium Chloride) 1 gm PO TID [facility] Last Admin: 03/02/19 09:11 Dose: 1 gm Vancomycin HCl (Pharmacy To Dose - Vancomycin) 1 dose .XX ASDIRECTED [facility] Discontinued Medications Aspirin (Halfprin) 81 mg PO DAILY [facility] Last Admin: 02/28/19 09:11 Dose: 81 mg Gabapentin (Neurontin) 300 mg PO TID [facility] Last Admin: 02/28/19 13:41 Dose: 300 mg Sodium Chloride (Normal Saline) 500 mls @ 999 mls/hr IV .BOLUS [facility] Last Admin: 02/27/19 08:58 Dose: 999 mls/hr Sodium Chloride (Normal Saline) 500 mls @ 125 mls/hr IV ASDIRECTED [facility] Last Admin: 02/27/19 09:52 Dose: 500 mls/hr Sodium Chloride (Normal Saline) 500 mls @ 125 mls/hr IV ASDIRECTED [facility] Sodium Chloride (Normal Saline) 500 mls @ 500 mls/hr IV .BOLUS [facility] Last Admin: 02/27/19 20:30 Dose: 500 mls/hr Levofloxacin/Dextrose 750 mg/ (Premix) 150 mls @ 100 mls/hr IV Q48H [facility] Last Admin: 03/01/19 18:15 Dose: Not Given Sodium Chloride (Normal Saline) 500 mls @ 999 mls/hr IV .BOLUS ONE Stop: 03/02/19 00:30 Last Admin: 03/02/19 00:44 Dose: 999 mls/hr Metformin HCl (Glucophage) 500 mg PO BIDMEALS [facility] Last Admin: 02/28/19 09:11 Dose: 500 mg Metformin HCl (Glucophage) 500 mg PO DAILY [facility] Last Admin: 03/01/19 09:12 Dose: 500 mg Non-Formulary Medication (Dronabinol [Marinol]) 5 mg PO BID [facility] Last Admin: 02/28/19 14:12 Dose: Not Given Potassium Chloride (Klor-Con 10) 40 meq PO ONETIME ONE Stop: 03/01/19 12:25 Last Admin: 03/01/19 13:28 Dose: 40 meq Potassium Chloride (Klor-Con 10) 40 meq PO ONETIME ONE Stop: 03/02/19 12:46 Sodium Chloride (Sodium Chloride) 2 gm PO TIDMEALS [facility] Last Admin: 02/28/19 09:10 Dose: 2 gm - Exam General: Alert, Oriented, Cooperative HEENT: Pupils Equal, Pupils Reactive, Mucous Membr. Moist/[place] Neck: Supple Lungs: Clear to Auscultation, Normal Respiratory Effort Cardiovascular: Regular Rate, Regular Rhythm GI/Abdominal Exam: Normal Bowel Sounds, Soft, Non-Tender, No Distention Extremities: Normal Inspection, Non-Tender, No Pedal Edema, Normal Capillary Refill Skin: Warm, Dry, Intact Neurological: No New Focal Deficit Psy/Mental Status: Alert, Normal Affect, Normal Mood - Problem List & Annotations (1) Dehydration SNOMED Code(s): 53905507 Code(s): E86.0 - DEHYDRATION Status: Acute Current Visit: Yes (2) Diarrhea SNOMED Code(s): 18831533 Code(s): R19.7 - DIARRHEA, UNSPECIFIED Status: Acute Current Visit: Yes Qualifiers: Diarrhea type: unspecified type Qualified Code(s): R19.7 - Diarrhea, unspecified (3) Hyponatremia SNOMED Code(s): 40801889 Code(s): E87.1 - HYPO-OSMOLALITY AND HYPONATREMIA Status: Acute Current Visit: Yes (4) S/P chemotherapy, time since 4-12 weeks SNOMED Code(s): 520128680, 567543564 Code(s): Z92.21 - PERSONAL HISTORY OF ANTINEOPLASTIC CHEMOTHERAPY Status: Acute Current Visit: Yes (5) Hyponatremia SNOMED Code(s): 62723511 Code(s): E87.1 - HYPO-OSMOLALITY AND HYPONATREMIA Status: Acute Current Visit: No (6) Lung cancer SNOMED Code(s): 183089358 Code(s): C34.90 - MALIGNANT NEOPLASM OF UNSP PART OF UNSP BRONCHUS OR LUNG Status: Acute Current Visit: No Qualifiers: Laterality: unspecified laterality Lung location: unspecified part of lung Qualified Code(s): C34.90 - Malignant neoplasm of unspecified part of unspecified bronchus or lung - Problem List Review Problem List Initiated/Reviewed/Updated: Yes - My Orders Last 24 Hours: My Active Orders 03/02/19 11:44 Loperamide [Imodium] 2 mg PO Q4H PRN 03/02/19 13:00 Potassium Chloride [KCl 10 MEQ in Water 100 ML] 10 meq Premix Bag 1 bag IV Q1H - Plan Plan:: Assessment/plan: #. Diarrhea Was having profuse diarrhea This is probably due to viral illness. Patient recently had chemotherapy and that can also result in diarrhea Stool for C. difficile and Giardia came back negative Continue intravenous hydration Consult physical and occupational therapy Loperamide #Hypokalemia: K of 3.0. - Check mag - 40 mEq of KCl IV and 40 mEq of CARLY PO - Repeat K level when IV K is completed. #. Dehydration This is secondary to gastrointestinal fluid and electrolyte loss intravenous normal saline going at 100 mL an hour #. Hyponatremia Serum sodium is gradually coming up Obtain repeat basic metabolic panel continue intravenous fluid with normal saline going at 100 mL an hour #. Lung cancer Has been on chemotherapy Last chemotherapy was about a week ago #. Diabetes mellitus type 2 patient's blood sugar has been running low Monitor blood sugar before meals and at bedtime Hold Metformin
[2019-03-02] MEDS: Potassium Chloride 10 MEQ in Premix Bag 1 BAG IV SCH ×4 (13:38→17:04)
[2019-03-02] MEDS: Levofloxacin/Dextrose 5%-Water 750 MG in Premix Bag 1 BAG IV SCH (18:21)
[2019-03-02] MEDS: Finasteride 5 MG Tab PO SCH (21:40)
[2019-03-02] MEDS: Aspirin 81 MG Tab.EC PO SCH (21:40)
[2019-03-02] MEDS: Acetaminophen 325 MG Tab PO PRN (22:00)
[2019-03-03] MEDS ORDERED: Sodium Chloride 0.9% 1,000 ML IV ONE (03:10)
[2019-03-03 03:59] LABS: ANION GAP 10.8; CHLORIDE,CL 103 mmol/L (101-111); SODIUM,NA 129 mmol/L (135-145)
[2019-03-03] MEDS: Gabapentin 300 MG Cap PO SCH ×2 (08:33→21:42)
[2019-03-03] MEDS: Midodrine 2.5 MG Tab PO SCH ×3 (08:33→17:43)
[2019-03-03] MEDS: Sodium Chloride 1 GM Tab PO SCH ×3 (08:37→21:42)
[2019-03-03] MEDS: Famotidine 20 MG Tab PO SCH ×2 (09:30→21:42)
[2019-03-03] MEDS: Sodium Bicarbonate 650 MG Tab PO SCH ×2 (09:57→14:19)
--- NOTE | 2019-03-03 10:15 | PCM.PN ---
- General Info Date of Service: 03/03/19 Subjective Update: Patient reports that he is doing okay. Reports that diarrhea is resolved. Asking when he can go home. Deneis fevers, chills, chest pain, shortness of breath, n/v/d/c. - Review of Systems General: Reports: Weakness HEENT: Reports: No Symptoms Pulmonary: Reports: No Symptoms Cardiovascular: Reports: No Symptoms Gastrointestinal: Reports: No Symptoms Genitourinary: Reports: No Symptoms Musculoskeletal: Reports: No Symptoms Skin: Reports: No Symptoms Neurological: Reports: No Symptoms Psychiatric: Reports: No Symptoms - Patient Data Vitals - Most Recent: Last Vital Signs Temp 98.0 F 03/03/19 07:57 Pulse 57 L 03/03/19 07:57 Resp 20 03/03/19 07:57 BP 95/52 L 03/03/19 07:57 Pulse Ox 99 03/03/19 07:57 Weight - Most Recent: 143 lb 3.2 oz I&O - Last 24 Hours: Intake & Output 03/02/19 03/03/19 03/03/19 22:59 06:59 14:59 Intake Total 250 Output Total 450 750 200 Balance -200 -750 -200 Lab Results Last 24 Hours: Laboratory Results - last 24 hr 03/02/19 03/02/19 03/02/19 Range/Units 11:11 12:27 12:27 Sodium 128 L (135-145) mmol/L Potassium (3.6-5.0) mmol/L Chloride (101-111) mmol/L Carbon Dioxide (21.0-31.0) mmol/L Anion Gap BUN (7-18) mg/dL Creatinine (0.6-1.3) mg/dL Est Cr Clr Drug Dosing mL/min Estimated GFR (MDRD) BUN/Creatinine Ratio Glucose (74-105) mg/dL POC Glucose 139 H (83-110) mg/dl Calcium (8.4-10.2) mg/dl Magnesium 1.5 L (1.8-2.5) mg/dL Total Bilirubin (0.2-1.0) mg/dL AST (10-42) IU/L ALT (10-60) IU/L Alkaline Phosphatase (42-121) IU/L Troponin I (0.00-0.02) ng/ml Total Protein (6.7-8.2) g/dl Albumin (3.2-5.5) g/dl Globulin Albumin/Globulin Ratio 03/02/19 03/02/19 03/03/19 Range/Units 16:43 18:18 00:30 Sodium 126 L 126 L (135-145) mmol/L Potassium (3.6-5.0) mmol/L Chloride (101-111) mmol/L Carbon Dioxide (21.0-31.0) mmol/L Anion Gap BUN (7-18) mg/dL Creatinine (0.6-1.3) mg/dL Est Cr Clr Drug Dosing mL/min Estimated GFR (MDRD) BUN/Creatinine Ratio Glucose (74-105) mg/dL POC Glucose 157 H (83-110) mg/dl Calcium (8.4-10.2) mg/dl Magnesium (1.8-2.5) mg/dL Total Bilirubin (0.2-1.0) mg/dL AST (10-42) IU/L ALT (10-60) IU/L Alkaline Phosphatase (42-121) IU/L Troponin I (0.00-0.02) ng/ml Total Protein (6.7-8.2) g/dl Albumin (3.2-5.5) g/dl Globulin Albumin/Globulin Ratio 03/03/19 03/03/19 03/03/19 Range/Units 03:30 07:47 09:38 Sodium 129 L 131 L (135-145) mmol/L Potassium 3.8 (3.6-5.0) mmol/L Chloride 103 (101-111) mmol/L Carbon Dioxide 19.0 L (21.0-31.0) mmol/L Anion Gap 10.8 BUN 7 (7-18) mg/dL Creatinine 0.5 L (0.6-1.3) mg/dL Est Cr Clr Drug Dosing 111.87 mL/min Estimated GFR (MDRD) > 60 BUN/Creatinine Ratio 14.00 Glucose 105 (74-105) mg/dL POC Glucose 106 (83-110) mg/dl Calcium 7.5 L (8.4-10.2) mg/dl Magnesium (1.8-2.5) mg/dL Total Bilirubin 1.1 H (0.2-1.0) mg/dL AST 14 (10-42) IU/L ALT 11 (10-60) IU/L Alkaline Phosphatase 92 (42-121) IU/L Troponin I < 0.02 (0.00-0.02) ng/ml Total Protein 4.5 L (6.7-8.2) g/dl Albumin 1.9 L (3.2-5.5) g/dl Globulin 2.6 Albumin/Globulin Ratio 0.73 [facility] Results Last 24 Hours: Microbiology 03/01/19 16:35 Gram Stain - Final Sputum - Expectorated Sputum Culture - Preliminary 03/01/19 18:43 Aerobic Blood Culture - Preliminary Blood - Venous - Lab Draw NO GROWTH AFTER 1 DAY Anaerobic Blood Culture - Preliminary NO GROWTH AFTER 1 DAY 03/01/19 16:28 Aerobic Blood Culture - Preliminary Blood - Venous NO GROWTH AFTER 1 DAY Anaerobic Blood Culture - Preliminary NO GROWTH AFTER 1 DAY 02/27/19 16:10 Stool Culture - Final Stool / Feces NORMAL ENTERIC MAYE. NO SALMONELLA, SHIGELLA, CAMPYLOBACTER OR E.COLI O157 ISOLATED. Med Orders - Current: Current Medications Acetaminophen (Tylenol) 650 mg PO Q4H PRN PRN Reason: Pain (Mild 1-3)/fever Last Admin: 03/02/19 22:00 Dose: 650 mg Hydrocodone Bitart/Acetaminophen ([place] 325-10 Mg) 0.5 tab PO Q4H PRN PRN Reason: Pain (moderate 4-6) Last Admin: 03/01/19 19:49 Dose: 0.5 tab Aspirin (Halfprin) 81 mg PO [facility]TIME [facility] Last Admin: 03/02/19 21:40 Dose: 81 mg Famotidine (Pepcid) 20 mg PO BID [facility] Last Admin: 03/02/19 21:39 Dose: 20 mg Finasteride (Proscar) 5 mg PO BEDTIME [facility] Last Admin: 03/02/19 21:40 Dose: 5 mg Gabapentin (Neurontin) 600 mg PO BID [facility] Last Admin: 03/03/19 08:33 Dose: 600 mg Hydroxyzine HCl (Atarax) 25 mg PO Q8H PRN PRN Reason: Itching Sodium Chloride (Normal Saline) 1,000 mls @ 100 mls/hr IV ASDIRECTED [facility] Last Admin: 03/02/19 11:22 Dose: 100 mls/hr Levofloxacin/Dextrose 750 mg/ (Premix) 150 mls @ 100 mls/hr IV Q24H [facility] Last Admin: 03/02/19 18:21 Dose: 100 mls/hr Albumin Human (Buminate 5%) 250 mls @ 125 mls/hr IV ASDIRECTED [facility] Last Infusion: 03/02/19 01:15 Dose: Infused Vancomycin HCl 1 gm/ Sodium (Chloride) 250 mls @ 167 mls/hr IV Q12H [facility] Last Admin: 03/03/19 06:11 Dose: 167 mls/hr Loperamide HCl (Imodium) 2 mg PO Q4H PRN PRN Reason: Diarrhea Last Admin: 03/02/19 13:35 Dose: 2 mg Midodrine (Midodrine) 10 mg PO TIDAC [facility] Last Admin: 03/03/19 08:33 Dose: 10 mg Ondansetron HCl (Zofran Odt) 4 mg PO Q4H PRN PRN Reason: nausea, able to take PO Sodium Bicarbonate (Sodium Bicarbonate) 650 mg PO TID [facility] Stop: 03/03/19 14:01 Last Admin: 03/03/19 09:57 Dose: 650 mg Sodium Chloride (Sodium Chloride) 1 gm PO TID [facility] Last Admin: 03/03/19 08:37 Dose: 1 gm Vancomycin HCl (Pharmacy To Dose - Vancomycin) 1 dose .XX [facility] Discontinued Medications Aspirin (Halfprin) 81 mg PO DAILY [facility] Last Admin: 02/28/19 09:11 Dose: 81 mg Gabapentin (Neurontin) 300 mg PO TID [facility] Last Admin: 02/28/19 13:41 Dose: 300 mg Sodium Chloride (Normal Saline) 500 mls @ 999 mls/hr IV .BOLUS [facility] Last Admin: 02/27/19 08:58 Dose: 999 mls/hr Sodium Chloride (Normal Saline) 500 mls @ 125 mls/hr IV ASDIRECTED [facility] Last Admin: 02/27/19 09:52 Dose: 500 mls/hr Sodium Chloride (Normal Saline) 500 mls @ 125 mls/hr IV ASDIRECTED [facility] Sodium Chloride (Normal Saline) 500 mls @ 500 mls/hr IV .BOLUS [facility] Last Admin: 02/27/19 20:30 Dose: 500 mls/hr Levofloxacin/Dextrose 750 mg/ (Premix) 150 mls @ 100 mls/hr IV Q48H [facility] Last Admin: 03/01/19 18:15 Dose: Not Given Sodium Chloride (Normal Saline) 500 mls @ 999 mls/hr IV .BOLUS ONE Stop: 03/02/19 00:30 Last Admin: 03/02/19 00:44 Dose: 999 mls/hr Potassium Chloride 10 meq/ (Premix) 100 mls @ 100 mls/hr IV Q1H [facility] Stop: 03/02/19 16:59 Last Admin: 03/02/19 17:04 Dose: 100 mls/hr Sodium Chloride (Normal Saline) 1,000 mls @ 999 mls/hr IV .BOLUS ONE Stop: 03/03/19 04:10 Last Admin: 03/03/19 03:27 Dose: 999 mls/hr Metformin HCl (Glucophage) 500 mg PO BIDMEALS [facility] Last Admin: 02/28/19 09:11 Dose: 500 mg Metformin HCl (Glucophage) 500 mg PO DAILY [facility] Last Admin: 03/01/19 09:12 Dose: 500 mg Non-Formulary Medication (Dronabinol [Marinol]) 5 mg PO BID [facility] Last Admin: 02/28/19 14:12 Dose: Not Given Potassium Chloride (Klor-Con 10) 40 meq PO ONETIME ONE Stop: 03/01/19 12:25 Last Admin: 03/01/19 13:28 Dose: 40 meq Potassium Chloride (Klor-Con 10) 40 meq PO ONETIME ONE Stop: 03/02/19 12:46 Last Admin: 03/02/19 13:35 Dose: 40 meq Sodium Chloride (Sodium Chloride) 2 gm PO TIDMEALS [facility] Last Admin: 02/28/19 09:10 Dose: 2 gm - Exam General: Alert, Oriented HEENT: Pupils Equal, Pupils Reactive, Mucous Membr. Moist/[place] Neck: Supple Lungs: Clear to Auscultation, Normal Respiratory Effort Cardiovascular: Regular Rate, Regular Rhythm GI/Abdominal Exam: Normal Bowel Sounds, Soft, Non-Tender, No Distention Extremities: Normal Inspection, Non-Tender, No Pedal Edema Skin: Warm, Dry, Intact Neurological: No New Focal Deficit Psy/Mental Status: Alert, Normal Affect, Normal Mood - Problem List & Annotations (1) Dehydration SNOMED Code(s): 09892242 Code(s): E86.0 - DEHYDRATION Status: Acute Current Visit: Yes (2) Diarrhea SNOMED Code(s): 10894869 Code(s): R19.7 - DIARRHEA, UNSPECIFIED Status: Acute Current Visit: Yes Qualifiers: Diarrhea type: unspecified type Qualified Code(s): R19.7 - Diarrhea, unspecified (3) Hyponatremia SNOMED Code(s): 61965282 Code(s): E87.1 - HYPO-OSMOLALITY AND HYPONATREMIA Status: Acute Current Visit: Yes (4) S/P chemotherapy, time since 4-12 weeks SNOMED Code(s): 861415166, 401778645 Code(s): Z92.21 - PERSONAL HISTORY OF ANTINEOPLASTIC CHEMOTHERAPY Status: Acute Current Visit: Yes (5) Hyponatremia SNOMED Code(s): 89859229 Code(s): E87.1 - HYPO-OSMOLALITY AND HYPONATREMIA Status: Acute Current Visit: No (6) Lung cancer SNOMED Code(s): 717144772 Code(s): C34.90 - MALIGNANT NEOPLASM OF UNSP PART OF UNSP BRONCHUS OR LUNG Status: Acute Current Visit: No Qualifiers: Laterality: unspecified laterality Lung location: unspecified part of lung Qualified Code(s): C34.90 - Malignant neoplasm of unspecified part of unspecified bronchus or lung - Problem List Review Problem List Initiated/Reviewed/Updated: Yes - My Orders Last 24 Hours: My Active Orders 03/02/19 11:44 Loperamide [Imodium] 2 mg PO Q4H PRN 03/03/19 09:00 Sodium Bicarbonate 650 mg PO TID 03/04/19 05:11 BASIC METABOLIC PANEL,BMP [CHEM] AM MAGNESIUM [CHEM] AM - Plan Plan:: Assessment/plan: #. Diarrhea - Resolved with loperamide Was having profuse diarrhea This is probably due to viral illness. Patient recently had chemotherapy and that can also result in diarrhea Stool for C. difficile and Giardia came back negative - Continue intravenous hydration - Continue physical and occupational therapy - Continue Loperamide #Hypokalemia: Resolved. K this morning is 3.8. Had K of 3.0. - Received 40 mEq of KCl IV and 40 mEq of CARLY PO - Monitor and replace electrolytes.. #. Dehydration This is secondary to gastrointestinal fluid and electrolyte loss intravenous normal saline going at 100 mL an hour #. Hyponatremia Serum sodium is gradually coming up Obtain repeat basic metabolic panel continue intravenous fluid with normal saline going at 100 mL an hour #. Lung cancer Has been on chemotherapy Last chemotherapy was about a week ago #. Diabetes mellitus type 2 patient's blood sugar has been running low Monitor blood sugar before meals and at bedtime Hold Metformin
[2019-03-03] MEDS: Sodium Chloride 0.9% 1,000 ML IV SCH (11:52)
[2019-03-03] MEDS: Levofloxacin/Dextrose 5%-Water 750 MG in Premix Bag 1 BAG IV SCH (17:46)
[2019-03-03] MEDS: Finasteride 5 MG Tab PO SCH (21:42)
[2019-03-03] MEDS: Aspirin 81 MG Tab.EC PO SCH (21:42)
[2019-03-04] MEDS: Sodium Chloride 0.9% 1,000 ML IV SCH ×2 (00:51→14:25)
[2019-03-04 05:58] LABS: ANION GAP 9.5; CHLORIDE,CL 103 mmol/L (101-111); SODIUM,NA 130 mmol/L (135-145)
[2019-03-04] MEDS: Midodrine 2.5 MG Tab PO SCH ×3 (08:03→18:28)
[2019-03-04] MEDS: Gabapentin 300 MG Cap PO SCH ×2 (08:03→20:40)
[2019-03-04] MEDS: Famotidine 20 MG Tab PO SCH ×2 (08:04→20:39)
[2019-03-04] MEDS: Sodium Chloride 1 GM Tab PO SCH ×3 (08:04→20:40)
[2019-03-04] MEDS ORDERED: Magnesium Sulfate/D5W 2 GM in Premix Bag 1 BAG IV ONE (10:19)
--- NOTE | 2019-03-04 11:21 | PCM.PN ---
- General Info Date of Service: 03/04/19 Admission Dx/Problem (Free Text): Pt was admitted with: Weakness, Diarrhea and also left Lower Lobe Pneumonia Subjective Update: Patient reports that he is doing better. Reports that diarrhea is resolved. 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 Today he Denies, fevers, chills, chest pain, but still on N/C Oxygen Functional Status: Reports: Pain Controlled, Tolerating Diet, Ambulating (with assistance and walker), Urinating, Incentive Spirometry - Review of Systems General: Reports: Weakness, Fatigue, Appetite (acceptable). Denies: Fever, Chills HEENT: Denies: Headaches, Sinus Congestion, Sore Throat, Visual Changes Pulmonary: Reports: Shortness of Breath, Cough, Sputum. Denies: Wheezing Cardiovascular: Denies: Chest Pain, Edema, Lightheadedness Gastrointestinal: Denies: Abdominal Pain, Diarrhea, Difficulty Swallowing, Nausea, Vomiting Genitourinary: Denies: Dysuria, Burning, Urgency, Hematuria, Flank Pain Musculoskeletal: Denies: Neck Pain, Shoulder Pain, Leg Pain, Joint Swelling Skin: Denies: Cyanosis, Bruising, Pruritis, Rash Neurological: Denies: Confusion, Dizziness, Headache, Numbness, Tingling, Trouble Speaking Psychiatric: Denies: Confusion, Anxiety - Patient Data Vitals - Most Recent: Last Vital Signs Temp 36.2 C 03/04/19 08:00 Pulse 63 03/04/19 08:00 Resp 20 03/04/19 08:00 BP 90/49 L 03/04/19 08:00 Pulse Ox 96 03/04/19 08:00 Weight - Most Recent: 64.954 kg I&O - Last 24 Hours: Intake & Output 03/03/19 03/04/19 03/04/19 22:59 06:59 14:59 Intake Total 500 923 550 Output Total 100 825 625 Balance 400 98 -75 Lab Results Last 24 Hours: Laboratory Results - last 24 hr 03/03/19 03/03/19 03/03/19 Range/Units 11:52 15:35 16:32 Sodium 129 L (135-145) mmol/L Potassium (3.6-5.0) mmol/L Chloride (101-111) mmol/L Carbon Dioxide (21.0-31.0) mmol/L Anion Gap BUN (7-18) mg/dL Creatinine (0.6-1.3) mg/dL Est Cr Clr Drug Dosing mL/min Estimated GFR (MDRD) Glucose (74-105) mg/dL POC Glucose 120 H 125 H (83-110) mg/dl Calcium (8.4-10.2) mg/dl Magnesium (1.8-2.5) mg/dL Vancomycin Trough (10-15) ug/ml 03/03/19 03/04/19 03/04/19 Range/Units 21:10 05:30 05:30 Sodium 127 L 130 L (135-145) mmol/L Potassium 3.5 L (3.6-5.0) mmol/L Chloride 103 (101-111) mmol/L Carbon Dioxide 21.0 (21.0-31.0) mmol/L Anion Gap 9.5 BUN 7 (7-18) mg/dL Creatinine 0.5 L (0.6-1.3) mg/dL Est Cr Clr Drug Dosing 111.87 mL/min Estimated GFR (MDRD) > 60 Glucose 97 (74-105) mg/dL POC Glucose (83-110) mg/dl Calcium 7.5 L (8.4-10.2) mg/dl Magnesium 1.5 L (1.8-2.5) mg/dL Vancomycin Trough 9.4 L (10-15) ug/ml 03/04/19 Range/Units 07:43 Sodium (135-145) mmol/L Potassium (3.6-5.0) mmol/L Chloride (101-111) mmol/L Carbon Dioxide (21.0-31.0) mmol/L Anion Gap BUN (7-18) mg/dL Creatinine (0.6-1.3) mg/dL Est Cr Clr Drug Dosing mL/min Estimated GFR (MDRD) Glucose (74-105) mg/dL POC Glucose 101 (83-110) mg/dl Calcium (8.4-10.2) mg/dl Magnesium (1.8-2.5) mg/dL Vancomycin Trough (10-15) ug/ml Clement Results Last 24 Hours: Microbiology 03/01/19 16:35 Gram Stain - Final Sputum - Expectorated Sputum Culture - Preliminary 03/01/19 18:43 Aerobic Blood Culture - Preliminary Blood - Venous - Lab Draw NO GROWTH AFTER 2 DAYS Anaerobic Blood Culture - Preliminary NO GROWTH AFTER 2 DAYS 03/01/19 16:28 Aerobic Blood Culture - Preliminary Blood - Venous NO GROWTH AFTER 2 DAYS Anaerobic Blood Culture - Preliminary NO GROWTH AFTER 2 DAYS 03/01/19 17:00 Urine Culture - Preliminary Urine, Clean Catch Med Orders - Current: Current Medications Acetaminophen (Tylenol) 650 mg PO Q4H PRN PRN Reason: Pain (Mild 1-3)/fever Last Admin: 03/02/19 22:00 Dose: 650 mg Hydrocodone Bitart/Acetaminophen (Romance 325-10 Mg) 0.5 tab PO Q4H PRN PRN Reason: Pain (moderate 4-6) Last Admin: 03/01/19 19:49 Dose: 0.5 tab Aspirin (Halfprin) 81 mg PO BEDTIME [facility] Last Admin: 03/03/19 21:42 Dose: 81 mg Famotidine (Pepcid) 20 mg PO BID [facility] Last Admin: 03/04/19 08:04 Dose: 20 mg Finasteride (Proscar) 5 mg PO BEDTIME [facility] Last Admin: 03/03/19 21:42 Dose: 5 mg Gabapentin (Neurontin) 600 mg PO BID [facility] Last Admin: 03/04/19 08:03 Dose: 600 mg Hydroxyzine HCl (Atarax) 25 mg PO Q8H PRN PRN Reason: Itching Sodium Chloride (Normal Saline) 1,000 mls @ 100 mls/hr IV ASDIRECTED [facility] Last Admin: 03/04/19 00:51 Dose: 100 mls/hr Levofloxacin/Dextrose 750 mg/ (Premix) 150 mls @ 100 mls/hr IV Q24H [facility] Last Admin: 03/03/19 17:46 Dose: 100 mls/hr Albumin Human (Buminate 5%) 250 mls @ 125 mls/hr IV ASDIRECTED [facility] Last Infusion: 03/02/19 01:15 Dose: Infused Vancomycin HCl 1 gm/ Sodium (Chloride) 250 mls @ 167 mls/hr IV Q8H [facility] Last Admin: 03/04/19 06:54 Dose: 167 mls/hr Magnesium Sulfate 2 gm/ Premix 50 mls @ 25 mls/hr IV ONETIME ONE Stop: 03/04/19 13:29 Loperamide HCl (Imodium) 2 mg PO Q4H PRN PRN Reason: Diarrhea Last Admin: 03/02/19 13:35 Dose: 2 mg Midodrine (Midodrine) 10 mg PO TIDAC [facility] Last Admin: 03/04/19 08:03 Dose: 10 mg Ondansetron HCl (Zofran Odt) 4 mg PO Q4H PRN PRN Reason: nausea, able to take PO Sodium Chloride (Sodium Chloride) 1 gm PO TID [facility] Last Admin: 03/04/19 08:04 Dose: 1 gm Vancomycin HCl (Pharmacy To Dose - Vancomycin) 1 dose .XX ASDIRECTED [facility] Discontinued Medications Aspirin (Halfprin) 81 mg PO DAILY [facility] Last Admin: 02/28/19 09:11 Dose: 81 mg Gabapentin (Neurontin) 300 mg PO TID [facility] Last Admin: 02/28/19 13:41 Dose: 300 mg Sodium Chloride (Normal Saline) 500 mls @ 999 mls/hr IV .BOLUS [facility] Last Admin: 02/27/19 08:58 Dose: 999 mls/hr Sodium Chloride (Normal Saline) 500 mls @ 125 mls/hr IV ASDIRECTED [facility] Last Admin: 02/27/19 09:52 Dose: 500 mls/hr Sodium Chloride (Normal Saline) 500 mls @ 125 mls/hr IV ASDIRECTED [facility] Sodium Chloride (Normal Saline) 500 mls @ 500 mls/hr IV .BOLUS [facility] Last Admin: 02/27/19 20:30 Dose: 500 mls/hr Levofloxacin/Dextrose 750 mg/ (Premix) 150 mls @ 100 mls/hr IV Q48H [facility] Last Admin: 03/01/19 18:15 Dose: Not Given Vancomycin HCl 1 gm/ Sodium (Chloride) 250 mls @ 167 mls/hr IV Q12H [facility] Last Admin: 03/04/19 06:22 Dose: Not Given Sodium Chloride (Normal Saline) 500 mls @ 999 mls/hr IV .BOLUS ONE Stop: 03/02/19 00:30 Last Admin: 03/02/19 00:44 Dose: 999 mls/hr Potassium Chloride 10 meq/ (Premix) 100 mls @ 100 mls/hr IV Q1H [facility] Stop: 03/02/19 16:59 Last Admin: 03/02/19 17:04 Dose: 100 mls/hr Sodium Chloride (Normal Saline) 1,000 mls @ 999 mls/hr IV .BOLUS ONE Stop: 03/03/19 04:10 Last Admin: 03/03/19 03:27 Dose: 999 mls/hr Magnesium Sulfate/Dextrose 2 (gm/ Premix) 200 mls @ 100 mls/hr IV ONETIME ONE Stop: 03/04/19 12:18 Metformin HCl (Glucophage) 500 mg PO BIDMEALS [facility] Last Admin: 02/28/19 09:11 Dose: 500 mg Metformin HCl (Glucophage) 500 mg PO DAILY [facility] Last Admin: 03/01/19 09:12 Dose: 500 mg Non-Formulary Medication (Dronabinol [Marinol]) 5 mg PO BID [facility] Last Admin: 02/28/19 14:12 Dose: Not Given Potassium Chloride (Klor-Con 10) 40 meq PO ONETIME ONE Stop: 03/01/19 12:25 Last Admin: 03/01/19 13:28 Dose: 40 meq Potassium Chloride (Klor-Con 10) 40 meq PO ONETIME ONE Stop: 03/02/19 12:46 Last Admin: 03/02/19 13:35 Dose: 40 meq Potassium Chloride (Klor-Con 10) 40 meq PO ONETIME ONE Stop: 03/04/19 10:22 Sodium Bicarbonate (Sodium Bicarbonate) 650 mg PO TID [facility] Stop: 03/03/19 14:01 Last Admin: 03/03/19 14:19 Dose: 650 mg Sodium Chloride (Sodium Chloride) 2 gm PO TIDMEALS [facility] Last Admin: 02/28/19 09:10 Dose: 2 gm - Exam Quality Assessment: Supplemental Oxygen, DVT Prophylaxis. No: Urine Catheter General: Alert, Oriented, Cooperative, No Acute Distress HEENT: Pupils Equal, Pupils Reactive, Mucous Membr. Moist/[place] Neck: Supple, No Thyromegaly Lungs: Clear to Auscultation, Normal Respiratory Effort. No: Crackles, Wheezing Cardiovascular: Regular Rate, Regular Rhythm, Murmurs GI/Abdominal Exam: Normal Bowel Sounds, Soft, Non-Tender. No: Rebound, Tender, Splenomegaly (Male) Exam: Deferred Back Exam: Normal Inspection Extremities: Normal Inspection, No Pedal Edema Skin: Warm, Dry, Intact Neurological: No New Focal Deficit Psy/Mental Status: Alert, Normal Affect, Normal Mood - Problem List Review Problem List Initiated/Reviewed/Updated: Yes - My Orders Last 24 Hours: My Active Orders 03/04/19 11:30 Magnesium Sulfate/Water [Magnesium Sulfate in Water Premix] 2 gm Premix Bag 1 bag IV ONETIME - Plan Plan:: This is a 78 y/O male with history of lung cancer on chemotherapy, admistted with weakness, Nausea, Diarrhea and Left lower lobe pneumonia Assessment/plan: 1. Diarrhea - Resolved with loperamide - patient recently had chemotherapy and that can also result in diarrhea - Stool for C. difficile and Giardia came back negative -Will stop IV fluids 2. Weakness: Continue physical and occupational therapy Will evaluate for discharge in AM 3. Hypokalemia: Resolved. K this morning is 3.5 . - Will give potassium chloride 40 mEq PO X 1 dose - Recheck in AM 4. Dehydration This is secondary to Diarrhea and dehydration -He is now adequately hydrated with normal saline will stop IVF 5. Hyponatremia Serum sodium is gradually improving, likely from hypovolemic Hyponatremia - will stop continue intravenous fluid with normal saline 6. Lung cancer Has been on chemotherapy Last chemotherapy was about a week ago and he gets followed at [facility] with Dr. Reynolds 7. Diabetes mellitus type 2 patient's blood sugar has been running low Monitor blood sugar before meals and at bedtime Continue to Hold Metformin 8. Left Lower Lobe Pneumonia: CXr showed left lower lobe pneumonia and he also has cough with sputum -Will continue Levofloxacin and Vancomycin ( pharmacy monitoring vanco level before re-dosing) -He is on [place] oxygen and will try to wean off as tolerated ( he is not oxygen dependent at home) 9. Hypomagnesemia: His magnesium was low and will give magnesium sulfate 2 gm IV X 1 dose now Recheck magnesium in AM
[2019-03-04] MEDS ORDERED: Magnesium Sulfate/Water 2 GM in Premix Bag 1 BAG IV ONE (11:30)
[2019-03-04] MEDS: Potassium Chloride 10 MEQ Tab.ER PO ONE ×2 (11:30→18:31)
[2019-03-04] MEDS: Levofloxacin/Dextrose 5%-Water 750 MG in Premix Bag 1 BAG IV SCH (17:02)
[2019-03-04] MEDS: Aspirin 81 MG Tab.EC PO SCH (20:39)
[2019-03-04] MEDS: Finasteride 5 MG Tab PO SCH (20:39)
[2019-03-04] MEDS: Acetaminophen 325 MG Tab PO PRN (22:27)
[2019-03-05 06:47] LABS: ANION GAP 10.8; CHLORIDE,CL 104 mmol/L (101-111); SODIUM,NA 131 mmol/L (135-145)
[2019-03-05] MEDS: Sodium Chloride 0.9% 1,000 ML IV SCH (07:47)
[2019-03-05] MEDS: Midodrine 2.5 MG Tab PO SCH ×2 (07:55→12:20)
--- NOTE | 2019-03-05 10:26 | PCM.DCSUM1 ---
Discharge Summary - Hospital Course Free Text/Narrative:: This is a 78 y/O male with history of lung cancer on chemotherapy, admitted with weakness, Nausea, vomiting, weakness, Diarrhea and Left lower lobe pneumonia. After admission he was given IV fluids and now he has no more nausea , vomiting or Diarrhea. For his pneumonia he was treated with IV levofloxacin and Vancomycin. Initially after admission he was on supplemental oxygen but eventually weaned off. He is doing well now and will be going home on Levofloxacin and will take for another 7 days. He will be seen by his PMD as soon as possible in the week of 03/06/19. He is advised to call and make the appointment with PMD. Diagnosis: Stroke: No - Discharge Data Discharge Date: 03/05/19 Discharge Disposition: Home, Self-Care 01 Condition: Good - Patient Summary/Data Consults: Consultations 02/28/19 11:27 OT Evaluation and Treatment [CONS] Routine PT Evaluation and Treatment [CONS] Routine - Patient Instructions Diet: Usual Diet as Tolerated Activity: As Tolerated Showering/Bathing: May Shower Notify Provider of: Fever, Nausea and/or Vomiting Other/Special Instructions: This is a 78 y/O male with history of lung cancer on chemotherapy, admitted with weakness, Nausea, vomiting, weakness, Diarrhea and Left lower lobe pneumonia. After admission he was given IV fluids and now he has no more nausea , vomiting or Diarrhea. For his pneumonia he was treated with IV levofloxacin and Vancomycin. Initially after admission he was on supplemental oxygen but eventually weaned off. He is doing well now and will be going home on Levofloxacin and will take for another 7 days. He will be seen by his PMD as soon as possible in the week of 03/06/19. He is advised to call and make the appointment with PMD - Discharge Plan *PRESCRIPTION DRUG MONITORING PROGRAM REVIEWED*: Not Applicable *COPY OF PRESCRIPTION DRUG MONITORING REPORT IN PATIENT [place]: Not Applicable Prescriptions/Med Rec: Levofloxacin 750 mg PO DAILY #7 tablet Home Medications: Home Meds Gabapentin [Neurontin] 300 mg PO TID 08/20/18 [History] atorvaSTATin [Lipitor] 10 mg PO BEDTIME 08/20/18 [History] Ondansetron [Zofran] 8 mg PO Q8H PRN 08/26/18 [History] Aspirin [Ecotrin] 81 mg PO DAILY 09/07/18 [History] Dronabinol [Marinol] 5 mg PO BID 09/07/18 [History] Dutasteride 0.5 mg PO DAILY 09/07/18 [History] Midodrine 10 mg PO TIDAC 09/07/18 [History] Sodium Chloride 2 gm PO TIDMEALS 09/07/18 [History] hydrOXYzine HCl [hydrOXYzine] 25 mg PO Q8H PRN 09/07/18 [History] metFORMIN [Glucophage] 500 mg PO BIDMEALS #60 tablet 09/13/18 [Rx] Diclofenac Sodium [Voltaren] 75 mg PO BIDMEALS 02/27/19 [History] Dutasteride [Avodart] 0.5 mg PO DAILY 02/27/19 [History] Levofloxacin 750 mg PO DAILY #7 tablet 03/05/19 [Rx] Oxygen Therapy Mode: Room Air Patient Handouts: Hyponatremia, Rehydration, Adult, Levofloxacin tablets - Discharge Summary/Plan Comment DC Time >30 min.: Yes - General Info Date of Service: 03/05/19 Admission Dx/Problem (Free Text: Pt was admitted with: Weakness, Diarrhea and also left Lower Lobe Pneumonia Subjective Update: Patient reports that he is doing well Reports that diarrhea is resolved. he is off N/C Oxygen, appetite is good and has no nausea or vomiting, slept well, No fever or chill Functional Status: Reports: Pain Controlled, Tolerating Diet, Ambulating, Urinating - Review of Systems General: Reports: Weakness (mild). Denies: Fever, Chills HEENT: Denies: Ear Pain, Headaches, Sinus Congestion, Sore Throat, Visual Changes Pulmonary: Denies: Shortness of Breath, Cough, Sputum, Wheezing Cardiovascular: Denies: Chest Pain, Dyspnea on Exertion, Edema, Lightheadedness Gastrointestinal: Denies: Abdominal Pain, Diarrhea, Melena, Nausea, Vomiting Genitourinary: Denies: Dysuria, Burning, Urgency, Incontinence, Flank Pain Musculoskeletal: Denies: Neck Pain, Shoulder Pain, Joint Pain Skin: Denies: Cyanosis, Jaundice, Bruising, Pruritis, Rash Neurological: Denies: Confusion, Tingling, Tremors Psychiatric: Denies: Confusion, Anxiety - Patient Data Vitals - Most Recent: Last Vital Signs Temp 36.7 C 03/05/19 08:00 Pulse 56 L 03/05/19 08:00 Resp 20 03/05/19 08:00 BP 93/77 03/05/19 08:00 Pulse Ox 100 03/05/19 08:00 Weight - Most Recent: 64.954 kg I&O - Last 24 hours: Intake & Output 03/04/19 03/05/19 03/05/19 22:59 06:59 14:59 Intake Total 1088 1250 642 Output Total 700 1125 500 Balance 388 125 142 Lab Results - Last 24 hrs: Laboratory Results - last 24 hr 03/04/19 03/04/19 03/05/19 Range/Units 11:37 17:43 06:15 WBC (5.0-10.0) 10^3/uL RBC (4.6-6.2) 10^6/uL Hgb (14.0-18.0) g/dL Hct (40.0-54.0) % MCV (80-100) fL MCH (27.0-34.0) pg MCHC (33.0-35.0) g/dL Plt Count (150-450) 10^3/uL Neut % (Auto) (42.2-75.2) % Lymph % (Auto) (20.5-50.1) % [place] % (Auto) (2-8) % Eos % (Auto) (1.0-3.0) % Baso % (Auto) (0.0-1.0) % Sodium 131 L (135-145) mmol/L Potassium 3.8 (3.6-5.0) mmol/L Chloride 104 (101-111) mmol/L Carbon Dioxide 20.0 L (21.0-31.0) mmol/L Anion Gap 10.8 BUN 6 L (7-18) mg/dL Creatinine 0.5 L (0.6-1.3) mg/dL Est Cr Clr Drug Dosing 111.87 mL/min Estimated GFR (MDRD) > 60 Glucose 114 H (74-105) mg/dL POC Glucose 165 H 108 (83-110) mg/dl Calcium 7.7 L (8.4-10.2) mg/dl Magnesium 1.8 (1.8-2.5) mg/dL 03/05/19 03/05/19 Range/Units 06:15 08:07 WBC 6.0 (5.0-10.0) 10^3/uL RBC 3.13 L (4.6-6.2) 10^6/uL Hgb 8.8 L (14.0-18.0) g/dL Hct 25.9 L (40.0-54.0) % MCV 82.7 (80-100) fL MCH 28.1 (27.0-34.0) pg MCHC 34.0 (33.0-35.0) g/dL Plt Count 194 (150-450) 10^3/uL Neut % (Auto) 75.5 H (42.2-75.2) % Lymph % (Auto) 14.0 L (20.5-50.1) % [place] % (Auto) 8.0 (2-8) % Eos % (Auto) 1.2 (1.0-3.0) % Baso % (Auto) 1.3 H (0.0-1.0) % Sodium (135-145) mmol/L Potassium (3.6-5.0) mmol/L Chloride (101-111) mmol/L Carbon Dioxide (21.0-31.0) mmol/L Anion Gap BUN (7-18) mg/dL Creatinine (0.6-1.3) mg/dL Est Cr Clr Drug Dosing mL/min Estimated GFR (MDRD) Glucose (74-105) mg/dL POC Glucose 114 H (83-110) mg/dl Calcium (8.4-10.2) mg/dl Magnesium (1.8-2.5) mg/dL MARTIN Results - Last 24 hrs: Microbiology 03/01/19 16:35 Gram Stain - Final Sputum - Expectorated Sputum Culture - Final Pseudomonas Aeruginosa 03/01/19 18:43 Aerobic Blood Culture - Preliminary Blood - Venous - Lab Draw NO GROWTH AFTER 3 DAYS Anaerobic Blood Culture - Preliminary NO GROWTH AFTER 3 DAYS 03/01/19 16:28 Aerobic Blood Culture - Preliminary Blood - Venous NO GROWTH AFTER 3 DAYS Anaerobic Blood Culture - Preliminary NO GROWTH AFTER 3 DAYS Med Orders - Current: Current Medications Acetaminophen (Tylenol) 650 mg PO Q4H PRN PRN Reason: Pain (Mild 1-3)/fever Last Admin: 03/04/19 22:27 Dose: 650 mg Hydrocodone Bitart/Acetaminophen ([place] 325-10 Mg) 0.5 tab PO Q4H PRN PRN Reason: Pain (moderate 4-6) Last Admin: 03/01/19 19:49 Dose: 0.5 tab Aspirin (Halfprin) 81 mg PO BEDTIME [facility] Last Admin: 03/04/19 20:39 Dose: 81 mg Famotidine (Pepcid) 20 mg PO BID [facility] Last Admin: 03/04/19 20:39 Dose: 20 mg Finasteride (Proscar) 5 mg PO BEDTIME [facility] Last Admin: 03/04/19 20:39 Dose: 5 mg Gabapentin (Neurontin) 600 mg PO BID [facility] Last Admin: 03/04/19 20:40 Dose: 600 mg Hydroxyzine HCl (Atarax) 25 mg PO Q8H PRN PRN Reason: Itching Sodium Chloride (Normal Saline) 1,000 mls @ 100 mls/hr IV ASDIRECTED [facility] Last Admin: 03/05/19 07:47 Dose: 100 mls/hr Levofloxacin/Dextrose 750 mg/ (Premix) 150 mls @ 100 mls/hr IV Q24H [facility] Last Admin: 03/04/19 17:02 Dose: 100 mls/hr Vancomycin HCl 1 gm/ Sodium (Chloride) 250 mls @ 167 mls/hr IV Q8H [facility] Last Admin: 03/05/19 06:17 Dose: 167 mls/hr Loperamide HCl (Imodium) 2 mg PO Q4H PRN PRN Reason: Diarrhea Last Admin: 03/02/19 13:35 Dose: 2 mg Midodrine (Midodrine) 10 mg PO TIDAC [facility] Last Admin: 03/05/19 07:55 Dose: 10 mg Ondansetron HCl (Zofran Odt) 4 mg PO Q4H PRN PRN Reason: nausea, able to take PO Sodium Chloride (Sodium Chloride) 1 gm PO TID [facility] Last Admin: 03/04/19 20:40 Dose: 1 gm Vancomycin HCl (Pharmacy To Dose - Vancomycin) 1 dose .XX ASDIRECTED [facility] Discontinued Medications Aspirin (Halfprin) 81 mg PO DAILY [facility] Last Admin: 02/28/19 09:11 Dose: 81 mg Gabapentin (Neurontin) 300 mg PO TID [facility] Last Admin: 02/28/19 13:41 Dose: 300 mg Sodium Chloride (Normal Saline) 500 mls @ 999 mls/hr IV .BOLUS [facility] Last Admin: 02/27/19 08:58 Dose: 999 mls/hr Sodium Chloride (Normal Saline) 500 mls @ 125 mls/hr IV ASDIRECTED [facility] Last Admin: 02/27/19 09:52 Dose: 500 mls/hr Sodium Chloride (Normal Saline) 500 mls @ 125 mls/hr IV ASDIRECTED [facility] Sodium Chloride (Normal Saline) 500 mls @ 500 mls/hr IV .BOLUS [facility] Last Admin: 02/27/19 20:30 Dose: 500 mls/hr Levofloxacin/Dextrose 750 mg/ (Premix) 150 mls @ 100 mls/hr IV Q48H [facility] Last Admin: 03/01/19 18:15 Dose: Not Given Albumin Human (Buminate 5%) 250 mls @ 125 mls/hr IV ASDIRECTED [facility] Last Infusion: 03/02/19 01:15 Dose: Infused Vancomycin HCl 1 gm/ Sodium (Chloride) 250 mls @ 167 mls/hr IV Q12H [facility] Last Admin: 03/04/19 06:22 Dose: Not Given Sodium Chloride (Normal Saline) 500 mls @ 999 mls/hr IV .BOLUS ONE Stop: 03/02/19 00:30 Last Admin: 03/02/19 00:44 Dose: 999 mls/hr Potassium Chloride 10 meq/ (Premix) 100 mls @ 100 mls/hr IV Q1H [facility] Stop: 03/02/19 16:59 Last Admin: 03/02/19 17:04 Dose: 100 mls/hr Sodium Chloride (Normal Saline) 1,000 mls @ 999 mls/hr IV .BOLUS ONE Stop: 03/03/19 04:10 Last Admin: 03/03/19 03:27 Dose: 999 mls/hr Magnesium Sulfate/Dextrose 2 (gm/ Premix) 200 mls @ 100 mls/hr IV ONETIME ONE Stop: 03/04/19 12:18 Last Admin: 03/04/19 11:29 Dose: Not Given Magnesium Sulfate 2 gm/ Premix 50 mls @ 25 mls/hr IV ONETIME ONE Stop: 03/04/19 13:29 Last Admin: 03/04/19 11:43 Dose: 25 mls/hr Metformin HCl (Glucophage) 500 mg PO BIDMEALS [facility] Last Admin: 02/28/19 09:11 Dose: 500 mg Metformin HCl (Glucophage) 500 mg PO DAILY [facility] Last Admin: 03/01/19 09:12 Dose: 500 mg Non-Formulary Medication (Dronabinol [Marinol]) 5 mg PO BID [facility] Last Admin: 02/28/19 14:12 Dose: Not Given Potassium Chloride (Klor-Con 10) 40 meq PO ONETIME ONE Stop: 03/01/19 12:25 Last Admin: 03/01/19 13:28 Dose: 40 meq Potassium Chloride (Klor-Con 10) 40 meq PO ONETIME ONE Stop: 03/02/19 12:46 Last Admin: 03/02/19 13:35 Dose: 40 meq Potassium Chloride (Klor-Con 10) 40 meq PO ONETIME ONE Stop: 03/04/19 10:22 Last Admin: 03/04/19 18:31 Dose: 40 meq Sodium Bicarbonate (Sodium Bicarbonate) 650 mg PO TID [facility] Stop: 03/03/19 14:01 Last Admin: 03/03/19 14:19 Dose: 650 mg Sodium Chloride (Sodium Chloride) 2 gm PO TIDMEALS [facility] Last Admin: 02/28/19 09:10 Dose: 2 gm - Exam Quality Assessment: Reports: DVT Prophylaxis. Denies: Supplemental Oxygen, Urine Catheter General: Reports: Alert, Oriented, Cooperative, No Acute Distress HEENT: Reports: Pupils Equal, Mucous Membr. Moist/[place] Neck: Reports: Supple, No JVD, No Thyromegaly Lungs: Reports: Clear to Auscultation, Normal Respiratory Effort. Denies: Crackles, Wheezing Cardiovascular: Reports: Regular Rate, Regular Rhythm, Murmurs GI/Abdominal Exam: Normal Bowel Sounds, Soft, Non-Tender, No Organomegaly, No Distention. No: Rigid, Rebound (Male) Exam: Deferred Rectal (Males) Exam: Deferred Back Exam: Reports: Normal Inspection Extremities: Normal Inspection, No Pedal Edema Skin: Reports: Warm, Dry, Intact Neurological: Reports: No New Focal Deficit Psy/Mental Status: Reports: Alert, Normal Affect, Normal Mood
[2019-03-05] MEDS: Levofloxacin/Dextrose 5%-Water 750 MG in Premix Bag 1 BAG IV SCH (10:30)
[2019-03-05] MEDS: Gabapentin 300 MG Cap PO SCH (10:34)
[2019-03-05] MEDS: Famotidine 20 MG Tab PO SCH (10:34)
[2019-03-05] MEDS: Sodium Chloride 1 GM Tab PO SCH (10:35)
== END 2019-03-05 13:05 | disposition home or self-care (01) | DRG 640 ==
LOC: DL.ED 08:38 → UNDOADMOB 10:17 → DL.MS 10:17 → UNDOADMOB 10:18 → DL.MS 10:18 → OBSVTOIN 10:18 → INTOOBSV 10:18 → OBSVTOIN 10:57 → DL.MS 10:57
PROVIDERS: ADMIT Internal Medicine; ATTEND Internal Medicine
DX: E86.0 Dehydration (principal); J18.1 Lobar pneumonia, unspecified organism; C34.90 Malignant neoplasm of unspecified part of unspecified bronchus or lung; A08.4 Viral intestinal infection, unspecified; E87.1 Hypo-osmolality and hyponatremia; I25.10 Atherosclerotic heart disease of native coronary artery without angina pectoris; H54.7 Unspecified visual loss; E78.5 Hyperlipidemia, unspecified; E11.51 Type 2 diabetes mellitus with diabetic peripheral angiopathy without gangrene; H91.90 Unspecified hearing loss, unspecified ear; E78.00 Pure hypercholesterolemia, unspecified; I73.9 Peripheral vascular disease, unspecified; I10 Essential (primary) hypertension; I95.9 Hypotension, unspecified; T45.1X5A Adverse effect of antineoplastic and immunosuppressive drugs, initial encounter; E87.6 Hypokalemia; E83.42 Hypomagnesemia; M19.91 Primary osteoarthritis, unspecified site; E53.8 Deficiency of other specified B group vitamins; Z92.21 Personal history of antineoplastic chemotherapy; Z98.49 Cataract extraction status, unspecified eye; I73.1 Thromboangiitis obliterans [Buerger's disease]; Z86.11 Personal history of tuberculosis; Z87.891 Personal history of nicotine dependence; Z88.8 Allergy status to other drugs, medicaments and biological substances; Z79.84 Long term (current) use of oral hypoglycemic drugs; Z79.82 Long term (current) use of aspirin; M19.90 Unspecified osteoarthritis, unspecified site; M54.9 Dorsalgia, unspecified; G89.29 Other chronic pain; C34.11 Malignant neoplasm of upper lobe, right bronchus or lung; Z79.899 Other long term (current) drug therapy; R53.1 Weakness; R19.7 Diarrhea, unspecified; R11.0 Nausea
CPT/HCPCS: 36415; 80053; 83930; 85025; 96360; 96361; 99284; J7040 ×2; 71045; 80048; 80202; 81001; 82962; 83735; 83935; 84295; 84484; 87040; 87045; 87046; 87070; 87077; 87086; 87186; 87205; 87324; 87328; 87329; 87493; 87899; 94010; 97162-GP; 97165-GO; 97530-GO; 97535-GO; A4217; A9270-GY; J1642; J1956; J3370; J3475; J3480; J7030; J7050; P9045

== ENCOUNTER 2019-03-18 15:11 | Inpatient (IN) | payer MEDICARE, MEDICAID ==
[2019-03-18] MEDS ORDERED: Sodium Chloride 0.9% 1,000 ML IV ONE (15:35)
[2019-03-18 16:00] LABS: CHLORIDE,CL 102 mmol/L (101-111); SODIUM,NA 133 mmol/L (135-145)
--- NOTE | 2019-03-18 17:33 | EDM.PDOC ---
Scribed by Olivia Lopez 03/18/19 [id number] for Enma Santana NP ED HPI GENERAL MEDICAL PROBLEM - General Chief Complaint: General Stated Complaint: WEAKNESS Time Seen by Provider: 03/18/19 15:24 Source of Information: Reports: Patient, EMS, EMS Notes Reviewed, RN, RN Notes Reviewed History Limitations: Reports: No Limitations - History of Present Illness INITIAL COMMENTS - FREE TEXT/NARRATIVE: Patient presents to ER per [facility] with complaint of weakness. States he had chemo yesterday in [place]. Today reports very hard bowel movement. States pain in rectum. States he has not been able to be up and walking around. He has had nausea, fever and chills. Onset: Gradual Duration: Getting Worse Location: Reports: Generalized Quality: Reports: Ache Severity: Mild Improves with: Reports: None Worsens with: Reports: None Associated Symptoms: Reports: No Other Symptoms Right Lower Abdomen Pain Score (Numeric/FACES): 8 - Related Data Allergies Allergy/AdvReac Type Severity Reaction Status Date / Time dapsone Allergy Cannot Verified 02/27/19 09:22 Remember isoniazid Allergy Nausea and Verified 02/27/19 09:22 Vomiting prochlorperazine Allergy Dizziness Verified 02/27/19 09:22 [From Compazine] tuberculin, purified protein Allergy Swelling Verified 02/27/19 09:22 deriva [Tuberculin,Purif.Prot.Deriv.] Home Meds: Home Meds Gabapentin [Neurontin] 300 mg PO TID 08/20/18 [History] atorvaSTATin [Lipitor] 10 mg PO BEDTIME 08/20/18 [History] Ondansetron [Zofran] 8 mg PO Q8H PRN 08/26/18 [History] Aspirin [Ecotrin EC] 81 mg PO DAILY 09/07/18 [History] Dronabinol [Marinol] 5 mg PO BID 09/07/18 [History] Dutasteride 0.5 mg PO DAILY 09/07/18 [History] Midodrine 10 mg PO TIDAC 09/07/18 [History] Sodium Chloride 2 gm PO TIDMEALS 09/07/18 [History] hydrOXYzine HCl [hydrOXYzine] 25 mg PO Q8H PRN 09/07/18 [History] metFORMIN [Glucophage] 500 mg PO BIDMEALS #60 tablet 09/13/18 [Rx] Diclofenac Sodium [Voltaren] 75 mg PO BIDMEALS 02/27/19 [History] Dutasteride [Avodart] 0.5 mg PO DAILY 02/27/19 [History] Levofloxacin 750 mg PO DAILY #7 tablet 03/05/19 [Rx] Past Medical History HEENT History: Reports: Cataract, Hard of Hearing, Impaired Vision Cardiovascular History: Reports: Aneurysm, High Cholesterol, Hypertension, PVD, Other (See Below) Other Cardiovascular History: buergers disease Respiratory History: Reports: TB, Other (See Below) Other Respiratory History: latent TB; Genitourinary History: Reports: None Musculoskeletal History: Reports: Arthritis, Back Pain, Chronic, Osteoarthritis Neurological History: Reports: None Psychiatric History: Reports: None Endocrine/Metabolic History: Reports: Diabetes, Type II Hematologic History: Reports: B12 Deficiency Immunologic History: Reports: None Oncologic (Cancer) History: Reports: Lung Dermatologic History: Reports: Eczema - Past Surgical History HEENT Surgical History: Reports: Cataract Surgery, Other (See Below) Other HEENT Surgeries/Procedures: eye ptosis surgery; facial reconstruction surgery Respiratory Surgical History: Reports: Lung Biopsies Musculoskeletal Surgical History: Reports: Other (See Below) Other Musculoskeletal Surgeries/Procedures:: knee surgery Oncologic Surgical History: Reports: Other (See Below) Other Oncologic Surgeries/Procedures: 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 ED EXAM, GENERAL - Physical Exam Exam: See Below Exam Limited By: No Limitations General Appearance: Cachetic (, thin and weak) Eye Exam: Bilateral Eye: Normal Inspection Ears: Normal External Exam, Normal Canal, Hearing Grossly Normal, Normal TMs Nose: Normal Inspection, Normal Mucosa, No Blood Throat/Mouth: Normal Inspection, Normal Lips, Normal Teeth, Normal Gums, Normal Oropharynx, Normal Voice, No Airway Compromise Head: Atraumatic, Normocephalic Neck: Normal Inspection, Supple, Non-Tender, Full Range of Motion Respiratory/Chest: Other (very diminished bilateral and decreased air entry) Cardiovascular: Bradycardia GI/Abdominal: Normal Bowel Sounds, Soft, Non-Tender, No Organomegaly, No Distention, No Abnormal Bruit, No Mass (Male) Exam: Deferred Rectal (Males) Exam: Deferred Back Exam: Normal Inspection, Full Range of Motion, NT Extremities: Normal Inspection, Normal Range of Motion, Non-Tender, Normal Capillary Refill, No Pedal Edema Neurological: Alert, Oriented, CN II-XII Intact, Normal Cognition, Normal Gait, Normal Reflexes, No Motor/Sensory Deficits Psychiatric: Normal Affect, Normal Mood Skin Exam: Warm, Dry, Intact, Normal Color, No Rash Lymphatic: No Adenopathy Course - Vital Signs Last Recorded V/S: Last Vital Signs Temp 97 F 03/18/19 15:14 Pulse 49 L 03/18/19 16:07 Resp 14 03/18/19 16:07 BP 100/53 L 03/18/19 16:07 Pulse Ox 100 03/18/19 16:07 - Orders/Labs/Meds Orders: Active Orders 24 hr Category Date Time Status CULTURE BLOOD [BC] Stat Lab 03/18/19 15:33 Received Sodium Chloride 0.9% [Normal Saline] 1,000 ml Med 03/18/19 15:35 Active IV .BOLUS Blood Culture x2 Reflex Set [OM.PC] Stat Oth 03/18/19 15:28 Ordered Medication Orders Sodium Chloride (Normal Saline) 1,000 mls @ 300 mls/hr IV .BOLUS ONE Stop: 03/18/19 18:54 Last Admin: 03/18/19 15:40 Dose: 300 mls/hr Labs: Laboratory Tests 03/18/19 03/18/19 03/18/19 Range/Units 15:33 15:33 15:33 WBC 5.4 (5.0-10.0) 10^3/uL RBC 3.70 L (4.6-6.2) 10^6/uL Hgb 10.3 L D (14.0-18.0) g/dL Hct 31.2 L (40.0-54.0) % MCV 84.3 (80-100) fL MCH 27.8 (27.0-34.0) pg MCHC 33.0 (33.0-35.0) g/dL Plt Count 237 (150-450) 10^3/uL Neut % (Auto) 68.6 (42.2-75.2) % Lymph % (Auto) 24.3 (20.5-50.1) % [place] % (Auto) 5.8 (2-8) % Eos % (Auto) 0.0 L (1.0-3.0) % Baso % (Auto) 1.3 H (0.0-1.0) % PT 10.8 (9.0-12.0) SEC INR 1.1 (0.9-1.2) Sodium 133 L (135-145) mmol/L Potassium 4.0 (3.6-5.0) mmol/L Chloride 102 (101-111) mmol/L Carbon Dioxide 22.0 (21.0-31.0) mmol/L Anion Gap 13.0 BUN 22 H (7-18) mg/dL Creatinine 0.5 L (0.6-1.3) mg/dL Est Cr Clr Drug Dosing 109.29 mL/min Estimated GFR (MDRD) > 60 BUN/Creatinine Ratio 44.00 Glucose 110 H (74-105) mg/dL Lactic Acid (0.5-2.2) mmol/L Calcium 8.7 (8.4-10.2) mg/dl Magnesium 2.0 (1.8-2.5) mg/dL Total Bilirubin 2.0 H (0.2-1.0) mg/dL AST 23 (10-42) IU/L ALT 11 (10-60) IU/L Alkaline Phosphatase 69 (42-121) IU/L Total Protein 6.1 L (6.7-8.2) g/dl Albumin 3.0 L (3.2-5.5) g/dl Globulin 3.1 Albumin/Globulin Ratio 0.97 Urine Color (YELLOW) Urine Appearance (CLEAR) Urine pH (5.0-9.0) Ur Specific [place] (1.005-1.030) Urine Protein (NEGATIVE) Urine Glucose (UA) (NEGATIVE) Urine Ketones (NEGATIVE) Urine Occult Blood (NEGATIVE) Urine Nitrite (NEGATIVE) Urine Bilirubin (NEGATIVE) Urine Urobilinogen (0.2-1.0) mg/dL Ur Leukocyte Esterase (NEGATIVE) 03/18/19 03/18/19 Range/Units 15:33 17:03 WBC (5.0-10.0) 10^3/uL RBC (4.6-6.2) 10^6/uL Hgb (14.0-18.0) g/dL Hct (40.0-54.0) % MCV (80-100) fL MCH (27.0-34.0) pg MCHC (33.0-35.0) g/dL Plt Count (150-450) 10^3/uL Neut % (Auto) (42.2-75.2) % Lymph % (Auto) (20.5-50.1) % [place] % (Auto) (2-8) % Eos % (Auto) (1.0-3.0) % Baso % (Auto) (0.0-1.0) % PT (9.0-12.0) SEC INR (0.9-1.2) Sodium (135-145) mmol/L Potassium (3.6-5.0) mmol/L Chloride (101-111) mmol/L Carbon Dioxide (21.0-31.0) mmol/L Anion Gap BUN (7-18) mg/dL Creatinine (0.6-1.3) mg/dL Est Cr Clr Drug Dosing mL/min Estimated GFR (MDRD) BUN/Creatinine Ratio Glucose (74-105) mg/dL Lactic Acid 1.9 (0.5-2.2) mmol/L Calcium (8.4-10.2) mg/dl Magnesium (1.8-2.5) mg/dL Total Bilirubin (0.2-1.0) mg/dL AST (10-42) IU/L ALT (10-60) IU/L Alkaline Phosphatase (42-121) IU/L Total Protein (6.7-8.2) g/dl Albumin (3.2-5.5) g/dl Globulin Albumin/Globulin Ratio Urine Color Dark yellow (YELLOW) Urine Appearance Slightly cloudy (CLEAR) Urine pH 7.0 (5.0-9.0) Ur Specific [place] 1.020 (1.005-1.030) Urine Protein Negative (NEGATIVE) Urine Glucose (UA) Negative (NEGATIVE) Urine Ketones Negative (NEGATIVE) Urine Occult Blood Negative (NEGATIVE) Urine Nitrite Negative (NEGATIVE) Urine Bilirubin Negative (NEGATIVE) Urine Urobilinogen 1.0 (0.2-1.0) mg/dL Ur Leukocyte Esterase Negative (NEGATIVE) Meds: Medications Generic Name Dose Route Start Last Admin Trade Name Kim PRN Reason Stop Dose Admin Sodium Chloride 1,000 mls @ 300 mls/hr 03/18/19 15:35 03/18/19 15:40 Normal Saline IV 03/18/19 18:54 300 mls/hr .BOLUS ONE Administration Departure - Departure Time of Disposition: 17:16 Disposition: Admitted As Inpatient 66 Condition: Poor Clinical Impression: Generalized weakness Lung cancer Qualifiers: Laterality: unspecified laterality Lung location: unspecified part of lung Qualified Code(s): C34.90 - Malignant neoplasm of unspecified part of unspecified bronchus or lung - Discharge Information *PRESCRIPTION DRUG MONITORING PROGRAM REVIEWED*: No *COPY OF PRESCRIPTION DRUG MONITORING REPORT IN PATIENT CHAYITO: No Forms: ED Department Discharge - My Orders Last 24 Hours: My Active Orders 03/18/19 15:28 Blood Culture x2 Reflex Set [OM.PC] Stat 03/18/19 15:33 CULTURE BLOOD [BC] Stat 03/18/19 15:35 Sodium Chloride 0.9% [Normal Saline] 1,000 ml IV .BOLUS - Assessment/Plan Last 24 Hours: My Active Orders 03/18/19 15:28 Blood Culture x2 Reflex Set [OM.PC] Stat 03/18/19 15:33 CULTURE BLOOD [BC] Stat 03/18/19 15:35 Sodium Chloride 0.9% [Normal Saline] 1,000 ml IV .BOLUS I have read and agree with the documentation that has been completed regarding this visit. By signing this record, I attest that the documentation was completed in my physical presence and is an accurate record of the encounter.
[2019-03-18] MEDS ORDERED: oxyCODONE 5 MG Tab PO PRN (18:01)
[2019-03-18] MEDS ORDERED: Acetaminophen 325 MG Tab PO PRN (18:01)
[2019-03-18] MEDS ORDERED: hydrOXYzine HCl 25 MG Tab PO PRN (18:06)
[2019-03-18] MEDS ORDERED: Ondansetron 4 MG Tab.DIS PO PRN (18:15)
--- NOTE | 2019-03-18 18:34 | HP ---
CHIEF COMPLAINT: Generalized weakness. HISTORY OF PRESENT ILLNESS: The patient is a 78-year-old gentleman who was admitted through the emergency room and the patient was brought in by ambulance because the patient is complaining of generalized weakness and states that he had a chemotherapy yesterday for his lung cancer in [place], and after the chemotherapy, he has not just been feeling good. He complains of some pain on the sacral area, but the patient denies any chest pain, shortness of breath, headache, nor any other complaints, and in the emergency room, the patient had a workup including CBC, which showed some mild anemia and comp panel showed some low sodium of 133, but the rest of the panel unremarkable. Since the patient is unable to do anything because of the generalized weakness, the patient was then admitted for further evaluation and management. PAST MEDICAL HISTORY: Remarkable for type 2 diabetes mellitus, B12 deficiency, dyslipidemia, hypertension, osteoarthritis, and lung cancer. FAMILY HISTORY: Noncontributory. SOCIAL HISTORY: Nonsmoker, non-alcohol drinker. REVIEW OF SYSTEMS: As in HPI. The rest of the review of systems is negative. HOME MEDICATIONS: Gabapentin, Lipitor, Zofran, aspirin, Marinol, dutasteride, midodrine, sodium chloride, hydroxyzine, metformin, diclofenac, and levofloxacin. ALLERGIES: Dapsone, isoniazid, Compazine, and tuberculin. PHYSICAL EXAMINATION: General: The patient is alert and oriented, looks weak, but not in any acute distress. Vital Signs: Blood pressure is 100/53, pulse of 49, respiration of 14, pulse oximetry is 100% on room air, temperature is 97. SHEENT: Normocephalic. There is pink palpebral conjunctiva. Sclerae anicteric. Neck: No JVD, no lymphadenopathy. Heart: Regular rate and rhythm. Normal S1 and S2. No gallops. No rubs. Lungs: Diminished breath sounds on both bases, but no significant crackles, no wheezing. Abdomen: Soft, nontender. Bowel sounds positive. Extremities: Negative for any significant pedal edema. No calf tenderness. LABORATORY DATA: Lab workup as in HPI. ADMITTING DIAGNOSES: 1. Generalized weakness. 2. Lung cancer, status post chemotherapy. 3. Type 2 diabetes mellitus. 4. Osteoarthritis. TREATMENT PLAN: The patient is going to be admitted to General Medicine floor. He will be given IV fluids. We will have Physical Therapy and Occupational Therapy see the patient for evaluation and management and the rest of the management as necessary. The patient is a full code as discussed with the daughter. [facility] /[id number]
[2019-03-18] MEDS: Gabapentin 300 MG Cap PO SCH (20:45)
[2019-03-18] MEDS ORDERED: Aspirin 81 MG Tab.EC PO SCH (21:00)
[2019-03-19] MEDS ORDERED: metFORMIN 500 MG Tab PO SCH (08:00)
[2019-03-19] MEDS: Midodrine 2.5 MG Tab PO SCH ×2 (08:31→12:44)
[2019-03-19] MEDS: Sodium Chloride 1 GM Tab PO SCH ×2 (08:32→12:47)
[2019-03-19] MEDS ORDERED: Dutasteride 0.5 MG Cap PO SCH (09:00)
[2019-03-19] MEDS ORDERED: Enoxaparin 40 MG/0.4 ML Syringe SUBCUT SCH (09:00)
[2019-03-19] MEDS: Gabapentin 300 MG Cap PO SCH (09:26)
--- NOTE | 2019-03-19 10:27 | DISCH ---
FINAL DIAGNOSES: 1. Generalized weakness, most likely secondary to chemotherapy. 2. Lung cancer, status post chemotherapy. 3. Type 2 diabetes mellitus. 4. Osteoarthritis. BRIEF HISTORY OF PRESENT ILLNESS: Please see HPI. HOSPITAL COURSE: The patient was admitted to General Medicine floor. He was started on IV fluids and resumed on his home medication. The patient did well with the above regimen. The following day, the patient was feeling much better and back to his baseline, and he would like to go home. The patient was discharged. CONDITION ON DISCHARGE: Improved. FOLLOWUP: With primary care physician in 7 days and his oncologist as scheduled. [facility] /[id number]
[2019-03-19] MEDS ORDERED: Sodium Chloride 0.9% 10 ML Syringe FLUSH PRN (10:38)
--- NOTE | 2019-03-20 08:54 | PN ---
DATE: 03/19/2019 SUBJECTIVE: The patient this morning is feeling much better. He has gotten back his energy and his appetite is good. He denies any chest pain, shortness of breath, abdominal pain, fever, chills, nor any other complaints, and he mentioned that he is ready to go home. OBJECTIVE: Vital Signs: Blood pressure is 90/61, pulse of 80, respirations 20, and temperature of 97.3. Heart: Regular rate and rhythm. Normal S1 and S2. No gallops. No rubs. Lungs: Equal bilaterally. No crackles, no wheezing. Abdomen: Soft, nontender. Bowel sounds positive. Extremities: Negative for any significant pedal edema. LABORATORY DATA: Chest x-ray done yesterday showed nonspecific bibasilar consolidation. PLAN: We will discharge the patient home today and resume his home medication. We will also put the patient on Metamucil as patient is complaining of episodes of constipation and diarrhea. [facility] /[id number]
== END 2019-03-19 12:40 | disposition home or self-care (01) | DRG 948 ==
LOC: DL.ED 15:11 → DL.MS 17:27 → UNDOADMIN 17:27 → DL.MS 18:01
PROVIDERS: ADMIT Internal Medicine; ATTEND Internal Medicine
DX: R53.1 Weakness (principal); C34.90 Malignant neoplasm of unspecified part of unspecified bronchus or lung; D64.9 Anemia, unspecified; E78.5 Hyperlipidemia, unspecified; H54.7 Unspecified visual loss; M19.91 Primary osteoarthritis, unspecified site; H91.90 Unspecified hearing loss, unspecified ear; I10 Essential (primary) hypertension; E78.00 Pure hypercholesterolemia, unspecified; M19.90 Unspecified osteoarthritis, unspecified site; T45.1X5A Adverse effect of antineoplastic and immunosuppressive drugs, initial encounter; E11.51 Type 2 diabetes mellitus with diabetic peripheral angiopathy without gangrene; E53.8 Deficiency of other specified B group vitamins; Z79.82 Long term (current) use of aspirin; Z79.84 Long term (current) use of oral hypoglycemic drugs; Z98.49 Cataract extraction status, unspecified eye; Z79.899 Other long term (current) drug therapy
CPT/HCPCS: 36415; 80053; 81003; 83605; 83735; 85025; 85610; 87040; 96360; 96361; 99284; J7030; 71046; 82962; A9270-GY; J1642

== ENCOUNTER 2019-03-21 11:00 | Observation (INO) | payer MEDICARE, MEDICAID ==
[2019-03-21 11:42] LABS: CHLORIDE,CL 104 mmol/L (101-111); SODIUM,NA 133 mmol/L (135-145)
[2019-03-21] MEDS ORDERED: Sodium Chloride 0.9% 1,000 ML IV ONE (12:05)
--- NOTE | 2019-03-21 12:13 | EDM.PDOC ---
ED HPI GENERAL MEDICAL PROBLEM - General Chief Complaint: General Stated Complaint: WEAKNESS.AMBULANCE Time Seen by Provider: 03/21/19 12:00 Source of Information: Reports: Patient History Limitations: Reports: No Limitations - History of Present Illness INITIAL COMMENTS - FREE TEXT/NARRATIVE: This 78 yo male patient was brought to the ED by [facility] due to generalized weakness. The patient has a history of lung cancer with his last chemo treatment last week. The patient was seen in the ED and admitted to [facility] in [place] on 03/18/19. The patient was released from [facility] on 03/19/19 reporting he was feeling better. The patient requested that the ambulance bring him to [place] to see his cancer doctor. The patient states he did not want to be admitted here. The patient stated that if he can not be sent to [place], he does not want to be here. Duration: Day(s):, Constant Location: Reports: Generalized Quality: Reports: Other Severity: Moderate Improves with: Reports: None Worsens with: Reports: None Context: Reports: Other Associated Symptoms: Reports: Weakness - Related Data Allergies Allergy/AdvReac Type Severity Reaction Status Date / Time dapsone Allergy Cannot Verified 03/21/19 11:55 Remember isoniazid Allergy Nausea and Verified 03/21/19 11:55 Vomiting prochlorperazine Allergy Dizziness Verified 03/21/19 11:55 [From Compazine] tuberculin, purified protein Allergy Swelling Verified 03/21/19 11:55 deriva [Tuberculin,Purif.Prot.Deriv.] Home Meds: Home Meds Gabapentin [Neurontin] 300 mg PO TID 08/20/18 [History] atorvaSTATin [Lipitor] 10 mg PO BEDTIME 08/20/18 [History] Ondansetron [Zofran] 8 mg PO Q8H PRN 08/26/18 [History] Aspirin [Ecotrin EC] 81 mg PO BEDTIME 09/07/18 [History] Dronabinol [Marinol] 5 mg PO BID 09/07/18 [History] Dutasteride 0.5 mg PO DAILY 09/07/18 [History] Midodrine 10 mg PO TIDAC 09/07/18 [History] Sodium Chloride 2 gm PO TIDMEALS 09/07/18 [History] hydrOXYzine HCl [hydrOXYzine] 25 mg PO Q8H PRN 09/07/18 [History] metFORMIN [Glucophage] 500 mg PO BIDMEALS #60 tablet 09/13/18 [Rx] Diclofenac Sodium [Voltaren] 75 mg PO BIDMEALS 02/27/19 [History] Psyllium Husk [Metamucil] 660 gm PO DAILY #1 powder 03/19/19 [Rx] Past Medical History HEENT History: Reports: Cataract, Hard of Hearing, Impaired Vision Cardiovascular History: Reports: Aneurysm, High Cholesterol, Hypertension, PVD, Other (See Below) Other Cardiovascular History: buergers disease Respiratory History: Reports: TB, Other (See Below) Other Respiratory History: latent TB; Genitourinary History: Reports: None Musculoskeletal History: Reports: Arthritis, Back Pain, Chronic, Osteoarthritis Neurological History: Reports: None Psychiatric History: Reports: None Endocrine/Metabolic History: Reports: Diabetes, Type II Hematologic History: Reports: B12 Deficiency Immunologic History: Reports: None Oncologic (Cancer) History: Reports: Lung Dermatologic History: Reports: Eczema - Past Surgical History HEENT Surgical History: Reports: Cataract Surgery, Other (See Below) Other HEENT Surgeries/Procedures: eye ptosis surgery; facial reconstruction surgery Respiratory Surgical History: Reports: Lung Biopsies Musculoskeletal Surgical History: Reports: Other (See Below) Other Musculoskeletal Surgeries/Procedures:: knee surgery Oncologic Surgical History: Reports: Other (See Below) Other Oncologic Surgeries/Procedures: 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 ED EXAM, GENERAL - Physical Exam Exam: See Below Exam Limited By: No Limitations General Appearance: Alert, WD/WN, Moderate Distress Eye Exam: Bilateral Eye: EOMI, Normal Inspection, PERRL Ears: Normal External Exam, Normal Canal, Hearing Grossly Normal, Normal TMs Nose: Normal Inspection, Normal Mucosa, No Blood Throat/Mouth: Normal Inspection, Normal Lips, Normal Teeth, Normal Gums, Normal Oropharynx, Normal Voice, No Airway Compromise Head: Atraumatic, Normocephalic Neck: Normal Inspection, Supple, Non-Tender, Full Range of Motion Respiratory/Chest: No Respiratory Distress, Lungs Clear, No Accessory Muscle Use , Chest Non-Tender, Decreased Breath Sounds (throughout) Cardiovascular: Normal Peripheral Pulses, Regular Rate, Rhythm, No Edema, No Gallop, No JVD, No Murmur, No Rub GI/Abdominal: Normal Bowel Sounds, Soft, Non-Tender, No Organomegaly, No Distention, No Abnormal Bruit, No Mass (Male) Exam: Deferred Rectal (Males) Exam: Deferred Back Exam: Normal Inspection, Full Range of Motion, NT Extremities: Normal Inspection, Normal Range of Motion, Non-Tender, Normal Capillary Refill, No Pedal Edema Neurological: Alert, Oriented, CN II-XII Intact, Normal Cognition Psychiatric: Normal Affect, Normal Mood Skin Exam: Warm, Dry, Intact, Normal Color, No Rash Lymphatic: No Adenopathy Course - Vital Signs Last Recorded V/S: Last Vital Signs Temp 35.8 C 03/21/19 11:31 Pulse 65 03/21/19 12:31 Resp 18 03/21/19 12:31 BP 112/62 03/21/19 12:31 Pulse Ox 100 03/21/19 12:31 - Orders/Labs/Meds Orders: Active Orders 24 hr Category Date Time Status EKG Documentation Completion [RC] URGENT Care 03/21/19 11:12 Active Sodium Chloride 0.9% [Normal Saline] 1,000 ml Med 03/21/19 12:05 Active IV .BOLUS Medication Orders Sodium Chloride (Normal Saline) 1,000 mls @ 999 mls/hr IV .BOLUS ONE Stop: 03/21/19 13:05 Last Admin: 03/21/19 12:12 Dose: 999 mls/hr Labs: Laboratory Tests 03/21/19 03/21/19 03/21/19 Range/Units 11:15 11:15 11:53 WBC 4.4 L (5.0-10.0) 10^3/uL RBC 3.69 L (4.6-6.2) 10^6/uL Hgb 10.3 L (14.0-18.0) g/dL Hct 31.3 L (40.0-54.0) % MCV 84.8 (80-100) fL MCH 27.9 (27.0-34.0) pg MCHC 32.9 L (33.0-35.0) g/dL Plt Count 155 D (150-450) 10^3/uL Neut % (Auto) 51.0 (42.2-75.2) % Lymph % (Auto) 34.7 (20.5-50.1) % [place] % (Auto) 0.9 L (2-8) % Eos % (Auto) 12.3 H (1.0-3.0) % Baso % (Auto) 1.1 H (0.0-1.0) % Sodium 133 L (135-145) mmol/L Potassium 4.0 (3.6-5.0) mmol/L Chloride 104 (101-111) mmol/L Carbon Dioxide 22.0 (21.0-31.0) mmol/L Anion Gap 11.0 BUN 19 H (7-18) mg/dL Creatinine 0.6 (0.6-1.3) mg/dL Est Cr Clr Drug Dosing 87.36 mL/min Estimated GFR (MDRD) > 60 BUN/Creatinine Ratio 31.66 Glucose 95 (74-105) mg/dL Calcium 8.6 (8.4-10.2) mg/dl Total Bilirubin 2.0 H (0.2-1.0) mg/dL AST 19 (10-42) IU/L ALT 15 (10-60) IU/L Alkaline Phosphatase 84 (42-121) IU/L Troponin I < 0.02 (0.00-0.02) ng/ml Total Protein 6.0 L (6.7-8.2) g/dl Albumin 2.9 L (3.2-5.5) g/dl Globulin 3.1 Albumin/Globulin Ratio 0.94 Urine Color Dark yellow (YELLOW) Urine Appearance Clear (CLEAR) Urine pH 5.5 (5.0-9.0) Ur Specific [place] 1.025 (1.005-1.030) Urine Protein Trace H (NEGATIVE) Urine Glucose (UA) Negative (NEGATIVE) Urine Ketones Negative (NEGATIVE) Urine Occult Blood Moderate H (NEGATIVE) Urine Nitrite Negative (NEGATIVE) Urine Bilirubin Negative (NEGATIVE) Urine Urobilinogen 0.2 (0.2-1.0) mg/dL Ur Leukocyte Esterase Negative (NEGATIVE) Urine RBC 30-40 H /HPF Urine WBC 0-5 (0-5/HPF) /HPF Ur Epithelial Cells Few (NOT SEEN) /HPF Urine Bacteria Few (0-FEW/HPF) /HPF Hyaline Casts Rare H (NOT SEEN) /LPF Granular Casts Rare (NOT SEEN) /LPF Urine Mucus Moderate H (NOT SEEN) /LPF Meds: Medications Generic Name Dose Route Start Last Admin Trade Name Freq PRN Reason Stop Dose Admin Sodium Chloride 1,000 mls @ 999 mls/hr 03/21/19 12:05 03/21/19 12:12 Normal Saline IV 03/21/19 13:05 999 mls/hr .BOLUS ONE Administration Departure - Departure Time of Disposition: 12:32 Disposition: Admitted As Inpatient 66 Condition: Fair Clinical Impression: Generalized weakness Lung cancer Qualifiers: Laterality: unspecified laterality Lung location: unspecified part of lung Qualified Code(s): C34.90 - Malignant neoplasm of unspecified part of unspecified bronchus or lung - Discharge Information *PRESCRIPTION DRUG MONITORING PROGRAM REVIEWED*: Yes *COPY OF PRESCRIPTION DRUG MONITORING REPORT IN PATIENT CHAYITO: Yes Care Plan Goals: Discussed the patient's history, examination, lab results and treatments with Dr. Ford. Dr. Ford accepted the patient for continued evaluation and further management as an observation patient at [facility] in [place] for rehydration. - My Orders Last 24 Hours: My Active Orders 03/21/19 11:12 EKG Documentation Completion [RC] URGENT 03/21/19 12:05 Sodium Chloride 0.9% [Normal Saline] 1,000 ml IV .BOLUS - Assessment/Plan Last 24 Hours: My Active Orders 03/21/19 11:12 EKG Documentation Completion [RC] URGENT 03/21/19 12:05 Sodium Chloride 0.9% [Normal Saline] 1,000 ml IV .BOLUS
[2019-03-21] MEDS ORDERED: hydrOXYzine HCl 25 MG Tab PO PRN (13:38)
--- NOTE | 2019-03-21 15:01 | CR ---
Clinical history: 78-year-old diabetic male with history abdominal aortic aneurysm and now "weakness". Interpretation: Right supra clavicular central venous chemoinfusion line. Chronic shaggy bronchitic pattern. No new signs of heart failure, lung mass or focal lobar pneumonia when compared directly to recent films 18 March 2019. (no congestion left was suggested on 01 Mar 2019) No pneumothorax. CONCLUSION: No current signs of heart failure or lobar pneumonia.
--- NOTE | 2019-03-21 17:00 | PCM.HP ---
H&P History of Present Illness - General Date of Service: 03/21/19 Admit Problem/Dx: Admission Diagnosis/Problem Admission Diagnosis/Problem Weakness Source of Information: Patient History Limitations: Reports: No Limitations - History of Present Illness Initial Comments - Free Text/Narative: Patient is a 78-year-old male was brought in by ambulance today because of generalized weakness. Patient apparently called his daughter that he can't take it anymore and has been feeling weak. Patient otherwise lives with his granddaughters at home. Of note, patient was recently admitted to the hospital for IV hydration. He has a past medical history of right lung cancer, last chemotherapy was last week. Patient denies any episodes of fever, chills, chest pain or shortness of breath. He has been coughing but doesn't think it is worse than the usual. Previous sputum culture showed Pseudomonas. There was a report about diarrhea although he thinks that it hasn't changed since the last time he was here. Venous workup was unremarkable. He had 3 bowel movements of yellow stools yesterday. He eats 3 times a day although he admits that he doesn't drink that much water. He denies any headache although he feels occasionally dizzy. Occasional falls at home which he attributes from his numbness and tingling on the legs from his diabetes. Reports sugars at home range around 130s mg/dL. He sleeps on his bed, sleeps good amounts of hours, no leg swelling , no PND or orthopnea. - Related Data Allergies/Adverse Reactions: Allergies Allergy/AdvReac Type Severity Reaction Status Date / Time dapsone Allergy Cannot Verified 03/21/19 13:21 Remember isoniazid Allergy Nausea and Verified 03/21/19 13:21 Vomiting prochlorperazine Allergy Dizziness Verified 03/21/19 13:21 [From Compazine] tuberculin, purified protein Allergy Swelling Verified 03/21/19 13:21 deriva [Tuberculin,Purif.Prot.Deriv.] Home Medications: Home Meds Gabapentin [Neurontin] 300 mg PO TID 08/20/18 [History] atorvaSTATin [Lipitor] 10 mg PO BEDTIME 08/20/18 [History] Ondansetron [Zofran] 8 mg PO Q8H PRN 08/26/18 [History] Aspirin [Ecotrin EC] 81 mg PO BEDTIME 09/07/18 [History] Dronabinol [Marinol] 5 mg PO BID 09/07/18 [History] Dutasteride 0.5 mg PO DAILY 09/07/18 [History] Midodrine 10 mg PO TIDAC 09/07/18 [History] Sodium Chloride 2 gm PO TIDMEALS 09/07/18 [History] hydrOXYzine HCl [hydrOXYzine] 25 mg PO BID PRN 09/07/18 [History] metFORMIN [Glucophage] 500 mg PO BIDMEALS #60 tablet 09/13/18 [Rx] Diclofenac Sodium [Voltaren] 75 mg PO BIDMEALS 02/27/19 [History] Psyllium Husk [Metamucil] 660 gm PO DAILY #1 powder 03/19/19 [Rx] Past Medical History HEENT History: Reports: Cataract, Hard of Hearing, Impaired Vision Cardiovascular History: Reports: Aneurysm, High Cholesterol, Hypertension, PVD, Other (See Below) Other Cardiovascular History: buergers disease Respiratory History: Reports: TB, Other (See Below) Other Respiratory History: latent TB; Genitourinary History: Reports: None Musculoskeletal History: Reports: Arthritis, Back Pain, Chronic, Osteoarthritis Neurological History: Reports: None Psychiatric History: Reports: None Endocrine/Metabolic History: Reports: Diabetes, Type II Hematologic History: Reports: B12 Deficiency Immunologic History: Reports: None Oncologic (Cancer) History: Reports: Lung Dermatologic History: Reports: Eczema - Past Surgical History HEENT Surgical History: Reports: Cataract Surgery, Other (See Below) Other HEENT Surgeries/Procedures: eye ptosis surgery; facial reconstruction surgery Respiratory Surgical History: Reports: Lung Biopsies Musculoskeletal Surgical History: Reports: Other (See Below) Other Musculoskeletal Surgeries/Procedures:: knee surgery Oncologic Surgical History: Reports: Other (See Below) Other Oncologic Surgeries/Procedures: 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; lymph node biopsy Social & Family History - Family History Family Medical History: Unobtainable - Tobacco Use Smoking Status *Q: Former Smoker Years of Tobacco use: 50 Packs/Tins Daily: 0.5 Used Tobacco, but Quit: Yes Month/Year Tobacco Last Used: 03/2007 Second Hand Smoke Exposure: Yes - Caffeine Use Caffeine Use: Reports: Coffee - Recreational Drug Use Recreational Drug Use: No - Living Situation & Occupation Living situation: Reports: with Family Occupation: Retired H&P Review of Systems - Review of Systems: General: Reports: Weakness, Fatigue Pulmonary: Reports: Cough Cardiovascular: Reports: Lightheadedness Gastrointestinal: Reports: Diarrhea Genitourinary: Reports: No Symptoms Musculoskeletal: Reports: No Symptoms Neurological: Reports: Dizziness, Numbness, Tingling Exam - Vital Signs Vital Signs: Last Vital Signs Temp 97.2 F 03/21/19 12:51 Pulse 62 03/21/19 12:51 Resp 20 03/21/19 12:51 BP 119/63 03/21/19 12:51 Pulse Ox 100 03/21/19 12:51 Weight: 128 lb - Patient Data Lab Results Last 24 hrs: Laboratory Results - last 24 hr 03/21/19 03/21/19 03/21/19 Range/Units 11:15 11:15 11:15 WBC 4.4 L (5.0-10.0) 10^3/uL RBC 3.69 L (4.6-6.2) 10^6/uL Hgb 10.3 L (14.0-18.0) g/dL Hct 31.3 L (40.0-54.0) % MCV 84.8 (80-100) fL MCH 27.9 (27.0-34.0) pg MCHC 32.9 L (33.0-35.0) g/dL Plt Count 155 D (150-450) 10^3/uL Neut % (Auto) 51.0 (42.2-75.2) % Lymph % (Auto) 34.7 (20.5-50.1) % [place] % (Auto) 0.9 L (2-8) % Eos % (Auto) 12.3 H (1.0-3.0) % Baso % (Auto) 1.1 H (0.0-1.0) % Sodium 133 L (135-145) mmol/L Potassium 4.0 (3.6-5.0) mmol/L Chloride 104 (101-111) mmol/L Carbon Dioxide 22.0 (21.0-31.0) mmol/L Anion Gap 11.0 BUN 19 H (7-18) mg/dL Creatinine 0.6 (0.6-1.3) mg/dL Est Cr Clr Drug Dosing 87.36 mL/min Estimated GFR (MDRD) > 60 BUN/Creatinine Ratio 31.66 Glucose 95 (74-105) mg/dL POC Glucose (83-110) mg/dl Calcium 8.6 (8.4-10.2) mg/dl Magnesium 1.8 (1.8-2.5) mg/dL Total Bilirubin 2.0 H (0.2-1.0) mg/dL AST 19 (10-42) IU/L ALT 15 (10-60) IU/L Alkaline Phosphatase 84 (42-121) IU/L Troponin I < 0.02 (0.00-0.02) ng/ml B-Natriuretic Peptide 17 (0-100) pg/ml Total Protein 6.0 L (6.7-8.2) g/dl Albumin 2.9 L (3.2-5.5) g/dl Globulin 3.1 Albumin/Globulin Ratio 0.94 Urine Color (YELLOW) Urine Appearance (CLEAR) Urine pH (5.0-9.0) Ur Specific [place] (1.005-1.030) Urine Protein (NEGATIVE) Urine Glucose (UA) (NEGATIVE) Urine Ketones (NEGATIVE) Urine Occult Blood (NEGATIVE) Urine Nitrite (NEGATIVE) Urine Bilirubin (NEGATIVE) Urine Urobilinogen (0.2-1.0) mg/dL Ur Leukocyte Esterase (NEGATIVE) Urine RBC /HPF Urine WBC (0-5/HPF) /HPF Ur Epithelial Cells (NOT SEEN) /HPF Urine Bacteria (0-FEW/HPF) /HPF Hyaline Casts (NOT SEEN) /LPF Granular Casts (NOT SEEN) /LPF Urine Mucus (NOT SEEN) /LPF 03/21/19 03/21/19 Range/Units 11:53 13:11 WBC (5.0-10.0) 10^3/uL RBC (4.6-6.2) 10^6/uL Hgb (14.0-18.0) g/dL Hct (40.0-54.0) % MCV (80-100) fL MCH (27.0-34.0) pg MCHC (33.0-35.0) g/dL Plt Count (150-450) 10^3/uL Neut % (Auto) (42.2-75.2) % Lymph % (Auto) (20.5-50.1) % [place] % (Auto) (2-8) % Eos % (Auto) (1.0-3.0) % Baso % (Auto) (0.0-1.0) % Sodium (135-145) mmol/L Potassium (3.6-5.0) mmol/L Chloride (101-111) mmol/L Carbon Dioxide (21.0-31.0) mmol/L Anion Gap BUN (7-18) mg/dL Creatinine (0.6-1.3) mg/dL Est Cr Clr Drug Dosing mL/min Estimated GFR (MDRD) BUN/Creatinine Ratio Glucose (74-105) mg/dL POC Glucose 92 (83-110) mg/dl Calcium (8.4-10.2) mg/dl Magnesium (1.8-2.5) mg/dL Total Bilirubin (0.2-1.0) mg/dL AST (10-42) IU/L ALT (10-60) IU/L Alkaline Phosphatase (42-121) IU/L Troponin I (0.00-0.02) ng/ml B-Natriuretic Peptide (0-100) pg/ml Total Protein (6.7-8.2) g/dl Albumin (3.2-5.5) g/dl Globulin Albumin/Globulin Ratio Urine Color Dark yellow (YELLOW) Urine Appearance Clear (CLEAR) Urine pH 5.5 (5.0-9.0) Ur Specific [place] 1.025 (1.005-1.030) Urine Protein Trace H (NEGATIVE) Urine Glucose (UA) Negative (NEGATIVE) Urine Ketones Negative (NEGATIVE) Urine Occult Blood Moderate H (NEGATIVE) Urine Nitrite Negative (NEGATIVE) Urine Bilirubin Negative (NEGATIVE) Urine Urobilinogen 0.2 (0.2-1.0) mg/dL Ur Leukocyte Esterase Negative (NEGATIVE) Urine RBC 30-40 H /HPF Urine WBC 0-5 (0-5/HPF) /HPF Ur Epithelial Cells Few (NOT SEEN) /HPF Urine Bacteria Few (0-FEW/HPF) /HPF Hyaline Casts Rare H (NOT SEEN) /LPF Granular Casts Rare (NOT SEEN) /LPF Urine Mucus Moderate H (NOT SEEN) /LPF Result Diagrams: 03/21/19 11:15 03/21/19 11:15 Problem List Initiated/Reviewed/Updated: Yes Orders Last 24hrs: Active Orders 24 hr Category Date Time Status Patient Status [ADT] Routine ADT 03/21/19 13:36 Active Dietary Supplements [RC] BIDMEALS Care 03/21/19 14:49 Active EKG Documentation Completion [RC] URGENT Care 03/21/19 11:12 Active Oxygen Therapy [RC] PRN Care 03/21/19 13:36 Active Up With Assistance [RC] ASDIRECTED Care 03/21/19 13:36 Active VTE/DVT Education [RC] PER UNIT ROUTINE Care 03/21/19 13:36 Active Vital Signs [RC] 00,04,08,12,16,20 Care 03/21/19 13:36 Active OT Evaluation and Treatment [CONS] Routine Cons 03/21/19 13:36 Active PT Evaluation and Treatment [CONS] Routine Cons 03/21/19 13:36 Active CULTURE URINE [RM] Stat Lab 03/21/19 11:53 Received FOLATE [REF] Routine Lab 03/21/19 11:15 Received IRON PNL (FE, TIBC, JODY, %SAT) [REF] Routine Lab 03/21/19 11:15 Received VITAMIN B12 [REF] Routine Lab 03/21/19 11:15 Received Aspirin [Ecotrin EC] Med 03/21/19 21:00 Pending 81 mg PO BEDTIME Diclofenac Sodium [Voltaren] Med 03/21/19 18:00 Ordered 75 mg PO BIDMEALS Dronabinol [Marinol] Med 03/21/19 21:00 Pending 5 mg PO BID Dutasteride [Dutasteride] Med 03/22/19 09:00 Ordered 0.5 mg PO DAILY Gabapentin [Neurontin] Med 03/21/19 16:00 Active 300 mg PO TID Midodrine [Midodrine] Med 03/21/19 17:00 Ordered 10 mg PO TIDAC Ondansetron Med 03/21/19 13:38 Ordered 8 mg PO Q8H PRN Psyllium Husk [Metamucil] Med 03/22/19 09:00 Ordered 660 gm PO DAILY Sodium Chloride 0.9% [Normal Saline] 1,000 ml Med 03/21/19 15:00 Active IV ASDIRECTED Sodium Chloride [Sodium Chloride] Med 03/21/19 18:00 Ordered 2 gm PO TIDMEALS atorvaSTATin [Lipitor] Med 03/21/19 21:00 Ordered 10 mg PO BEDTIME hydrOXYzine HCl [Atarax] Med 03/21/19 13:38 Active 25 mg PO BID PRN metFORMIN [Glucophage] Med 03/21/19 18:00 Active 500 mg PO BIDMEALS Resuscitation Status Routine Resus Stat 03/21/19 13:50 Ordered Medication Orders Gabapentin (Neurontin) 300 mg PO TID [facility] Hydroxyzine HCl (Atarax) 25 mg PO BID PRN PRN Reason: Itching Sodium Chloride (Normal Saline) 1,000 mls @ 125 mls/hr IV ASDIRECTED [facility] Metformin HCl (Glucophage) 500 mg PO BIDMEALS [facility] Non-Formulary Medication (Aspirin [Ecotrin Ec]) 81 mg PO BEDTIME [facility] Non-Formulary Medication (Atorvastatin [Lipitor]) 10 mg PO BEDTIME [facility] Non-Formulary Medication (Diclofenac Sodium [Voltaren]) 75 mg PO BIDMEALS [facility] Non-Formulary Medication (Dronabinol [Marinol]) 5 mg PO BID [facility] Non-Formulary Medication (Dutasteride [Dutasteride]) 0.5 mg PO DAILY [facility] Non-Formulary Medication (Midodrine [Midodrine]) 10 mg PO TIDAC [facility] Non-Formulary Medication (Ondansetron) 8 mg PO Q8H PRN PRN Reason: Nausea Non-Formulary Medication (Psyllium Husk [Metamucil]) 660 gm PO DAILY [facility] Non-Formulary Medication (Sodium Chloride [Sodium Chloride]) 2 gm PO TIDMEALS [facility] Assessment/Plan Comment:: 1. Generalized weakness - Likely chemotherapy related - Normal saline started the emergency room, we will continue - We will have physical and occupational therapy evaluate patient. - Check for signs of infection: Urine culture sent 2. Anemia, likely chemotherapy related - I don't see any levels of ferritin or folate in previous records, will send specimen for workup to include iron studies, folate and B12 levels. 3. Diarrhea - Previous workup unremarkable. - Monitor for worsening of the episodes 4. Neutropenia - Monitor for signs of infection 5. Diabetes: Continue metformin - Check glucose pre-meals and at bedtime 6. DVT prophylaxis CODE STATUS: Full code
[2019-03-21] MEDS: Gabapentin 300 MG Cap PO SCH ×2 (17:30→20:59)
[2019-03-21] MEDS ORDERED: DICLOFENAC SODIUM 75 MG PO SCH (18:00)
[2019-03-21] MEDS: metFORMIN 500 MG Tab PO SCH (18:06)
[2019-03-21] MEDS ORDERED: Ondansetron 4 MG Tab.DIS PO PRN (19:15)
[2019-03-21] MEDS: Midodrine 2.5 MG Tab PO SCH (19:25)
[2019-03-21] MEDS: Sodium Chloride 1 GM Tab PO SCH (19:26)
[2019-03-21] MEDS: Naproxen 500 MG Tab PO SCH (19:26)
[2019-03-21] MEDS: Sodium Chloride 0.9% 1,000 ML IV SCH (19:41)
[2019-03-21] MEDS: atorvaSTATin 10 MG Tab PO SCH (20:58)
[2019-03-21] MEDS: Aspirin 81 MG Tab.EC PO SCH (20:59)
[2019-03-21] MEDS ORDERED: DRONABINOL 5 MG PO SCH (21:00)
[2019-03-21] MEDS ORDERED: Acetaminophen 325 MG Tab PO PRN (22:49)
[2019-03-22] MEDS: Sodium Chloride 0.9% 1,000 ML IV SCH ×3 (03:29→19:15)
[2019-03-22] MEDS: Naproxen 500 MG Tab PO SCH ×2 (08:35→17:04)
[2019-03-22] MEDS: Midodrine 2.5 MG Tab PO SCH ×3 (08:35→17:04)
[2019-03-22] MEDS: Gabapentin 300 MG Cap PO SCH ×3 (08:35→20:42)
[2019-03-22] MEDS: Sodium Chloride 1 GM Tab PO SCH ×4 (08:35→17:04)
[2019-03-22] MEDS: Enoxaparin 40 MG/0.4 ML Syringe SUBCUT SCH (08:36)
[2019-03-22] MEDS: metFORMIN 500 MG Tab PO SCH ×2 (08:36→17:03)
[2019-03-22] MEDS ORDERED: Non-Formulary Medication 1 Each (Psyllium Husk [Metamucil] 660 GM) PO SCH (09:00)
--- NOTE | 2019-03-22 10:25 | PCM.PN ---
- General Info Date of Service: 03/22/19 Subjective Update: Patient complains of pain involving both feet These are chronic. Indicates that he has trouble ambulating sometimes because of the pain. He does have long-standing diabetes mellitus and has been diagnosed with neuropathy. Was placed on gabapentin but patient has not been using medication as directed - Review of Systems General: Reports: Weakness, Fatigue Pulmonary: Reports: No Symptoms Cardiovascular: Reports: No Symptoms Gastrointestinal: Reports: No Symptoms Musculoskeletal: Reports: Leg Pain - Patient Data Vitals - Most Recent: Last Vital Signs Temp 36.6 C 03/22/19 08:55 Pulse 80 03/22/19 08:55 Resp 20 03/22/19 08:55 BP 120/74 03/22/19 08:55 Pulse Ox 97 03/22/19 08:55 Weight - Most Recent: 58.06 kg I&O - Last 24 Hours: Intake & Output 03/21/19 03/22/19 03/22/19 22:59 06:59 14:59 Intake Total 1199 916 Output Total 250 300 Balance 949 916 -300 Lab Results Last 24 Hours: Laboratory Results - last 24 hr 03/21/19 03/21/19 03/21/19 Range/Units 11:15 11:15 11:15 WBC 4.4 L (5.0-10.0) 10^3/uL RBC 3.69 L (4.6-6.2) 10^6/uL Hgb 10.3 L (14.0-18.0) g/dL Hct 31.3 L (40.0-54.0) % MCV 84.8 (80-100) fL MCH 27.9 (27.0-34.0) pg MCHC 32.9 L (33.0-35.0) g/dL Plt Count 155 D (150-450) 10^3/uL Neut % (Auto) 51.0 (42.2-75.2) % Lymph % (Auto) 34.7 (20.5-50.1) % [place] % (Auto) 0.9 L (2-8) % Eos % (Auto) 12.3 H (1.0-3.0) % Baso % (Auto) 1.1 H (0.0-1.0) % Sodium 133 L (135-145) mmol/L Potassium 4.0 (3.6-5.0) mmol/L Chloride 104 (101-111) mmol/L Carbon Dioxide 22.0 (21.0-31.0) mmol/L Anion Gap 11.0 BUN 19 H (7-18) mg/dL Creatinine 0.6 (0.6-1.3) mg/dL Est Cr Clr Drug Dosing 87.36 mL/min Estimated GFR (MDRD) > 60 BUN/Creatinine Ratio 31.66 Glucose 95 (74-105) mg/dL POC Glucose (83-110) mg/dl Calcium 8.6 (8.4-10.2) mg/dl Magnesium (1.8-2.5) mg/dL Iron (50-150) ug/dL TIBC (261-478) ug/dL Unsaturated IBC (155-355) ug/dL Transferrin % Sat (20.0-50.0) % Ferritin (24-336) ng/mL Total Bilirubin 2.0 H (0.2-1.0) mg/dL AST 19 (10-42) IU/L ALT 15 (10-60) IU/L Alkaline Phosphatase 84 (42-121) IU/L Troponin I < 0.02 (0.00-0.02) ng/ml B-Natriuretic Peptide (0-100) pg/ml Total Protein 6.0 L (6.7-8.2) g/dl Albumin 2.9 L (3.2-5.5) g/dl Globulin 3.1 Albumin/Globulin Ratio 0.94 Vitamin B12 1122 H (180-914) pg/mL Folate ng/mL Urine Color (YELLOW) Urine Appearance (CLEAR) Urine pH (5.0-9.0) Ur Specific [place] (1.005-1.030) Urine Protein (NEGATIVE) Urine Glucose (UA) (NEGATIVE) Urine Ketones (NEGATIVE) Urine Occult Blood (NEGATIVE) Urine Nitrite (NEGATIVE) Urine Bilirubin (NEGATIVE) Urine Urobilinogen (0.2-1.0) mg/dL Ur Leukocyte Esterase (NEGATIVE) Urine RBC /HPF Urine WBC (0-5/HPF) /HPF Ur Epithelial Cells (NOT SEEN) /HPF Urine Bacteria (0-FEW/HPF) /HPF Hyaline Casts (NOT SEEN) /LPF Granular Casts (NOT SEEN) /LPF Urine Mucus (NOT SEEN) /LPF 03/21/19 03/21/19 03/21/19 Range/Units 11:15 11:15 11:15 WBC (5.0-10.0) 10^3/uL RBC (4.6-6.2) 10^6/uL Hgb (14.0-18.0) g/dL Hct (40.0-54.0) % MCV (80-100) fL MCH (27.0-34.0) pg MCHC (33.0-35.0) g/dL Plt Count (150-450) 10^3/uL Neut % (Auto) (42.2-75.2) % Lymph % (Auto) (20.5-50.1) % [place] % (Auto) (2-8) % Eos % (Auto) (1.0-3.0) % Baso % (Auto) (0.0-1.0) % Sodium (135-145) mmol/L Potassium (3.6-5.0) mmol/L Chloride (101-111) mmol/L Carbon Dioxide (21.0-31.0) mmol/L Anion Gap BUN (7-18) mg/dL Creatinine (0.6-1.3) mg/dL Est Cr Clr Drug Dosing mL/min Estimated GFR (MDRD) BUN/Creatinine Ratio Glucose (74-105) mg/dL POC Glucose (83-110) mg/dl Calcium (8.4-10.2) mg/dl Magnesium 1.8 (1.8-2.5) mg/dL Iron 43 L (50-150) ug/dL TIBC 202 L (261-478) ug/dL Unsaturated IBC 159 (155-355) ug/dL Transferrin % Sat 21.3 (20.0-50.0) % Ferritin 456 H (24-336) ng/mL Total Bilirubin (0.2-1.0) mg/dL AST (10-42) IU/L ALT (10-60) IU/L Alkaline Phosphatase (42-121) IU/L Troponin I (0.00-0.02) ng/ml B-Natriuretic Peptide 17 (0-100) pg/ml Total Protein (6.7-8.2) g/dl Albumin (3.2-5.5) g/dl Globulin Albumin/Globulin Ratio Vitamin B12 (180-914) pg/mL Folate 8.0 ng/mL Urine Color (YELLOW) Urine Appearance (CLEAR) Urine pH (5.0-9.0) Ur Specific [place] (1.005-1.030) Urine Protein (NEGATIVE) Urine Glucose (UA) (NEGATIVE) Urine Ketones (NEGATIVE) Urine Occult Blood (NEGATIVE) Urine Nitrite (NEGATIVE) Urine Bilirubin (NEGATIVE) Urine Urobilinogen (0.2-1.0) mg/dL Ur Leukocyte Esterase (NEGATIVE) Urine RBC /HPF Urine WBC (0-5/HPF) /HPF Ur Epithelial Cells (NOT SEEN) /HPF Urine Bacteria (0-FEW/HPF) /HPF Hyaline Casts (NOT SEEN) /LPF Granular Casts (NOT SEEN) /LPF Urine Mucus (NOT SEEN) /LPF 03/21/19 03/21/19 03/21/19 Range/Units 11:53 13:11 16:56 WBC (5.0-10.0) 10^3/uL RBC (4.6-6.2) 10^6/uL Hgb (14.0-18.0) g/dL Hct (40.0-54.0) % MCV (80-100) fL MCH (27.0-34.0) pg MCHC (33.0-35.0) g/dL Plt Count (150-450) 10^3/uL Neut % (Auto) (42.2-75.2) % Lymph % (Auto) (20.5-50.1) % [place] % (Auto) (2-8) % Eos % (Auto) (1.0-3.0) % Baso % (Auto) (0.0-1.0) % Sodium (135-145) mmol/L Potassium (3.6-5.0) mmol/L Chloride (101-111) mmol/L Carbon Dioxide (21.0-31.0) mmol/L Anion Gap BUN (7-18) mg/dL Creatinine (0.6-1.3) mg/dL Est Cr Clr Drug Dosing mL/min Estimated GFR (MDRD) BUN/Creatinine Ratio Glucose (74-105) mg/dL POC Glucose 92 136 H (83-110) mg/dl Calcium (8.4-10.2) mg/dl Magnesium (1.8-2.5) mg/dL Iron (50-150) ug/dL TIBC (261-478) ug/dL Unsaturated IBC (155-355) ug/dL Transferrin % Sat (20.0-50.0) % Ferritin (24-336) ng/mL Total Bilirubin (0.2-1.0) mg/dL AST (10-42) IU/L ALT (10-60) IU/L Alkaline Phosphatase (42-121) IU/L Troponin I (0.00-0.02) ng/ml B-Natriuretic Peptide (0-100) pg/ml Total Protein (6.7-8.2) g/dl Albumin (3.2-5.5) g/dl Globulin Albumin/Globulin Ratio Vitamin B12 (180-914) pg/mL Folate ng/mL Urine Color Dark yellow (YELLOW) Urine Appearance Clear (CLEAR) Urine pH 5.5 (5.0-9.0) Ur Specific [place] 1.025 (1.005-1.030) Urine Protein Trace H (NEGATIVE) Urine Glucose (UA) Negative (NEGATIVE) Urine Ketones Negative (NEGATIVE) Urine Occult Blood Moderate H (NEGATIVE) Urine Nitrite Negative (NEGATIVE) Urine Bilirubin Negative (NEGATIVE) Urine Urobilinogen 0.2 (0.2-1.0) mg/dL Ur Leukocyte Esterase Negative (NEGATIVE) Urine RBC 30-40 H /HPF Urine WBC 0-5 (0-5/HPF) /HPF Ur Epithelial Cells Few (NOT SEEN) /HPF Urine Bacteria Few (0-FEW/HPF) /HPF Hyaline Casts Rare H (NOT SEEN) /LPF Granular Casts Rare (NOT SEEN) /LPF Urine Mucus Moderate H (NOT SEEN) /LPF 03/21/19 03/22/19 Range/Units 20:45 07:55 WBC (5.0-10.0) 10^3/uL RBC (4.6-6.2) 10^6/uL Hgb (14.0-18.0) g/dL Hct (40.0-54.0) % MCV (80-100) fL MCH (27.0-34.0) pg MCHC (33.0-35.0) g/dL Plt Count (150-450) 10^3/uL Neut % (Auto) (42.2-75.2) % Lymph % (Auto) (20.5-50.1) % [place] % (Auto) (2-8) % Eos % (Auto) (1.0-3.0) % Baso % (Auto) (0.0-1.0) % Sodium (135-145) mmol/L Potassium (3.6-5.0) mmol/L Chloride (101-111) mmol/L Carbon Dioxide (21.0-31.0) mmol/L Anion Gap BUN (7-18) mg/dL Creatinine (0.6-1.3) mg/dL Est Cr Clr Drug Dosing mL/min Estimated GFR (MDRD) BUN/Creatinine Ratio Glucose (74-105) mg/dL POC Glucose 157 H 82 L (83-110) mg/dl Calcium (8.4-10.2) mg/dl Magnesium (1.8-2.5) mg/dL Iron (50-150) ug/dL TIBC (261-478) ug/dL Unsaturated IBC (155-355) ug/dL Transferrin % Sat (20.0-50.0) % Ferritin (24-336) ng/mL Total Bilirubin (0.2-1.0) mg/dL AST (10-42) IU/L ALT (10-60) IU/L Alkaline Phosphatase (42-121) IU/L Troponin I (0.00-0.02) ng/ml B-Natriuretic Peptide (0-100) pg/ml Total Protein (6.7-8.2) g/dl Albumin (3.2-5.5) g/dl Globulin Albumin/Globulin Ratio Vitamin B12 (180-914) pg/mL Folate ng/mL Urine Color (YELLOW) Urine Appearance (CLEAR) Urine pH (5.0-9.0) Ur Specific [place] (1.005-1.030) Urine Protein (NEGATIVE) Urine Glucose (UA) (NEGATIVE) Urine Ketones (NEGATIVE) Urine Occult Blood (NEGATIVE) Urine Nitrite (NEGATIVE) Urine Bilirubin (NEGATIVE) Urine Urobilinogen (0.2-1.0) mg/dL Ur Leukocyte Esterase (NEGATIVE) Urine RBC /HPF Urine WBC (0-5/HPF) /HPF Ur Epithelial Cells (NOT SEEN) /HPF Urine Bacteria (0-FEW/HPF) /HPF Hyaline Casts (NOT SEEN) /LPF Granular Casts (NOT SEEN) /LPF Urine Mucus (NOT SEEN) /LPF Med Orders - Current: Current Medications Acetaminophen (Tylenol) 650 mg PO Q4H PRN PRN Reason: Pain Last Admin: 03/22/19 08:35 Dose: 650 mg Aspirin (Halfprin) 81 mg PO BEDTIME [facility] Last Admin: 03/21/19 20:59 Dose: 81 mg Atorvastatin Calcium (Lipitor) 10 mg PO BEDTIME [facility] Last Admin: 03/21/19 20:58 Dose: 10 mg Enoxaparin Sodium (Lovenox) 40 mg SUBCUT DAILY [facility] Last Admin: 03/22/19 08:36 Dose: Not Given Gabapentin (Neurontin) 300 mg PO TID [facility] Last Admin: 03/22/19 08:35 Dose: 300 mg Hydroxyzine HCl (Atarax) 25 mg PO BID PRN PRN Reason: Itching Sodium Chloride (Normal Saline) 1,000 mls @ 125 mls/hr IV ASDIRECTED [facility] Last Admin: 03/22/19 03:29 Dose: 125 mls/hr Metformin HCl (Glucophage) 500 mg PO BIDMEALS [facility] Last Admin: 03/22/19 08:36 Dose: 500 mg Midodrine (Midodrine) 10 mg PO TIDAC [facility] Last Admin: 03/22/19 08:35 Dose: 10 mg Naproxen (Naprosyn) 500 mg PO BIDMEALS [facility] Last Admin: 03/22/19 08:35 Dose: 500 mg Non-Formulary Medication (Diclofenac Sodium [Voltaren]) 75 mg PO BIDMEALS [facility] Non-Formulary Medication (Dronabinol [Marinol]) 5 mg PO BID [facility] Non-Formulary Medication (Dutasteride [Dutasteride]) 0.5 mg PO DAILY [facility] Non-Formulary Medication (Psyllium Husk [Metamucil]) 660 gm PO DAILY [facility] Ondansetron HCl (Zofran Odt) 8 mg PO Q8H PRN PRN Reason: Nausea Sodium Chloride (Sodium Chloride) 2 gm PO TIDMEALS [facility] Last Admin: 03/22/19 10:05 Dose: Not Given Discontinued Medications Sodium Chloride (Normal Saline) 1,000 mls @ 999 mls/hr IV .BOLUS ONE Stop: 03/21/19 13:05 Last Admin: 03/21/19 12:12 Dose: 999 mls/hr - Exam General: Alert, Oriented, Cooperative Neck: Supple Lungs: Clear to Auscultation, Normal Respiratory Effort Cardiovascular: Regular Rate, Regular Rhythm Extremities: Leg Pain - Problem List Review Problem List Initiated/Reviewed/Updated: Yes - My Orders Last 24 Hours: My Active Orders 03/21/19 19:30 Naproxen [Naprosyn] 500 mg PO BIDMEALS 03/21/19 22:49 Acetaminophen [Tylenol] 650 mg PO Q4H PRN 03/23/19 10:19 BASIC METABOLIC PANEL,BMP [CHEM] Routine CBC WITH AUTO DIFF [HEME] Routine - Plan Plan:: 1. Generalized weakness - Likely chemotherapy related - Normal saline started the emergency room, we will continue Continue physical and occupational therapy Continue intravenous fluids 2. 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 serial complete blood count 3. Diarrhea - Previous workup unremarkable. - Monitor for worsening of the episodes 4. Neutropenia - Monitor for signs of infection send sample for complete blood count with differential obtain basic metabolic panel 5. Diabetes: Continue metformin - Check glucose pre-meals and at bedtime 6. DVT prophylaxis CODE STATUS: Full code
[2019-03-22] MEDS: Dutasteride 0.5 MG Cap PO SCH (15:45)
[2019-03-22] MEDS: Aspirin 81 MG Tab.EC PO SCH (20:42)
[2019-03-22] MEDS: atorvaSTATin 10 MG Tab PO SCH (20:42)
[2019-03-23] MEDS: Sodium Chloride 0.9% 1,000 ML IV SCH (03:35)
[2019-03-23 07:03] LABS: ANION GAP 8.9; CHLORIDE,CL 111 mmol/L (101-111); SODIUM,NA 135 mmol/L (135-145)
[2019-03-23] MEDS: Dutasteride 0.5 MG Cap PO SCH (09:24)
[2019-03-23] MEDS: Gabapentin 300 MG Cap PO SCH ×2 (09:25→14:08)
[2019-03-23] MEDS: Naproxen 500 MG Tab PO SCH (09:25)
[2019-03-23] MEDS: metFORMIN 500 MG Tab PO SCH (09:26)
[2019-03-23] MEDS: Midodrine 2.5 MG Tab PO SCH ×2 (09:26→13:05)
[2019-03-23] MEDS: Enoxaparin 40 MG/0.4 ML Syringe SUBCUT SCH (09:33)
[2019-03-23] MEDS: Sodium Chloride 1 GM Tab PO SCH ×2 (09:33→13:06)
--- NOTE | 2019-03-23 10:35 | PCM.DCSUM1 ---
Discharge Summary - Hospital Course Free Text/Narrative:: 78-year-old gentleman with a history of lung cancer, diabetes. The patient recently had chemotherapy on 16 March. The patient presented with generalized weakness. 1. Generalized weakness - Likely chemotherapy related Received IV hydration improved He does not want home care he would benefit from a bedside commode, will give rx. 2. 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 Given date neutropenia and recent Pseudomonas lung infection will give the patient a few days of IV ciprofloxacin empirically 3. Diarrhea - Previous workup unremarkable. - Monitor for worsening of the episodes use prn imodium 4. Diabetes: Continue metformin - Check glucose pre-meals and at bedtime Diagnosis: Stroke: No - Discharge Data Discharge Date: 03/23/19 Discharge Disposition: Home, Self-Care 01 Condition: Good - Patient Summary/Data Consults: Consultations 03/21/19 13:36 OT Evaluation and Treatment [CONS] Routine PT Evaluation and Treatment [CONS] Routine - Patient Instructions Diet: Regular Diet as Tolerated Activity: As Tolerated - Discharge Plan *PRESCRIPTION DRUG MONITORING PROGRAM REVIEWED*: Not Applicable *COPY OF PRESCRIPTION DRUG MONITORING REPORT IN PATIENT [place]: Not Applicable Prescriptions/Med Rec: Ciprofloxacin HCl [Cipro] 500 mg PO BID #10 tablet Home Medications: Home Meds Gabapentin [Neurontin] 300 mg PO TID 08/20/18 [History] atorvaSTATin [Lipitor] 10 mg PO BEDTIME 08/20/18 [History] Ondansetron [Zofran] 8 mg PO Q8H PRN 08/26/18 [History] Aspirin [Ecotrin EC] 81 mg PO BEDTIME 09/07/18 [History] Dronabinol [Marinol] 5 mg PO BID 09/07/18 [History] Dutasteride 0.5 mg PO DAILY 09/07/18 [History] Midodrine 10 mg PO TIDAC 09/07/18 [History] Sodium Chloride 2 gm PO TIDMEALS 09/07/18 [History] hydrOXYzine HCl [hydrOXYzine] 25 mg PO BID PRN 09/07/18 [History] metFORMIN [Glucophage] 500 mg PO BIDMEALS #60 tablet 09/13/18 [Rx] Diclofenac Sodium [Voltaren] 75 mg PO BIDMEALS 02/27/19 [History] Psyllium Husk [Metamucil] 660 gm PO DAILY #1 powder 03/19/19 [Rx] Ciprofloxacin HCl [Cipro] 500 mg PO BID #10 tablet 03/23/19 [Rx] Referrals: PCP,None [Primary Care Provider] - (in 2-3 days, check CBC re: neutropenia) - Discharge Summary/Plan Comment DC Time >30 min.: No - General Info Date of Service: 03/23/19 Admission Dx/Problem (Free Text: Admission Diagnosis/Problem Admission Diagnosis/Problem Weakness Subjective Update: Feeling better. Has been ambulating well. No fever. No chest pain, shortness of breath. Had 2 or 3 bowel movements yesterday. No associated abdominal pain - Review of Systems General: Reports: Weakness (Improved). Denies: Fever Pulmonary: Denies: Shortness of Breath Gastrointestinal: Denies: Abdominal Pain Neurological: Denies: Confusion - Patient Data Vitals - Most Recent: Last Vital Signs Temp 36.4 C 03/23/19 08:00 Pulse 97 03/23/19 08:00 Resp 18 03/23/19 08:00 BP 107/54 L 03/23/19 08:00 Pulse Ox 97 03/23/19 08:00 Weight - Most Recent: 58.06 kg I&O - Last 24 hours: Intake & Output 03/22/19 03/23/19 03/23/19 22:59 06:59 14:59 Intake Total 2399 1292 Balance 2399 1292 Lab Results - Last 24 hrs: Laboratory Results - last 24 hr 03/22/19 03/22/19 03/22/19 Range/Units 11:02 16:46 21:07 WBC (5.0-10.0) 10^3/uL RBC (4.6-6.2) 10^6/uL Hgb (14.0-18.0) g/dL Hct (40.0-54.0) % MCV (80-100) fL MCH (27.0-34.0) pg MCHC (33.0-35.0) g/dL Plt Count (150-450) 10^3/uL Neut % (Auto) Lymph % (Auto) Bonner % (Auto) Eos % (Auto) Baso % (Auto) Add Manual Diff Neutrophils % (Manual) (42-75) % Lymphocytes % (Manual) (20-50) % Atypical Lymphs % % Monocytes % (Manual) (2-8) % Eosinophils % (Manual) (1-3) % Poikilocytosis Sodium (135-145) mmol/L Potassium (3.6-5.0) mmol/L Chloride (101-111) mmol/L Carbon Dioxide (21.0-31.0) mmol/L Anion Gap BUN (7-18) mg/dL Creatinine (0.6-1.3) mg/dL Est Cr Clr Drug Dosing mL/min Estimated GFR (MDRD) Glucose (74-105) mg/dL POC Glucose 105 118 H 119 H (83-110) mg/dl Calcium (8.4-10.2) mg/dl 03/23/19 03/23/19 03/23/19 Range/Units 06:15 06:15 07:48 WBC 1.3 L* (5.0-10.0) 10^3/uL RBC 3.03 L (4.6-6.2) 10^6/uL Hgb 8.5 L D (14.0-18.0) g/dL Hct 25.8 L (40.0-54.0) % MCV 85.1 (80-100) fL MCH 28.1 (27.0-34.0) pg MCHC 32.9 L (33.0-35.0) g/dL Plt Count 120 L (150-450) 10^3/uL Neut % (Auto) Clinical Training Specialist Lymph % (Auto) Clinical Training Specialist Bonner % (Auto) Clinical Training Specialist Eos % (Auto) Clinical Training Specialist Baso % (Auto) Clinical Training Specialist Add Manual Diff Yes Neutrophils % (Manual) 12 L (42-75) % Lymphocytes % (Manual) 79 H (20-50) % Atypical Lymphs % 2 % Monocytes % (Manual) 4 (2-8) % Eosinophils % (Manual) 3 (1-3) % Poikilocytosis 1+ slight Sodium 135 (135-145) mmol/L Potassium 3.9 (3.6-5.0) mmol/L Chloride 111 (101-111) mmol/L Carbon Dioxide 19.0 L (21.0-31.0) mmol/L Anion Gap 8.9 BUN 9 (7-18) mg/dL Creatinine 0.5 L (0.6-1.3) mg/dL Est Cr Clr Drug Dosing 99.99 mL/min Estimated GFR (MDRD) > 60 Glucose 72 L (74-105) mg/dL POC Glucose 82 L (83-110) mg/dl Calcium 7.7 L (8.4-10.2) mg/dl MARTIN Results - Last 24 hrs: Microbiology 03/21/19 11:53 Urine Culture - Final Urine, Bladder NO GROWTH AFTER 2 DAYS Med Orders - Current: Current Medications Acetaminophen (Tylenol) 650 mg PO Q4H PRN PRN Reason: Pain Last Admin: 03/22/19 08:35 Dose: 650 mg Aspirin (Halfprin) 81 mg PO BEDTIME [facility] Last Admin: 03/22/19 20:42 Dose: 81 mg Atorvastatin Calcium (Lipitor) 10 mg PO BEDTIME [facility] Last Admin: 03/22/19 20:42 Dose: 10 mg Dutasteride (Avodart) 0.5 mg PO DAILY [facility] Last Admin: 03/23/19 09:24 Dose: 0.5 mg Enoxaparin Sodium (Lovenox) 40 mg SUBCUT DAILY [facility] Last Admin: 03/23/19 09:33 Dose: Not Given Gabapentin (Neurontin) 300 mg PO TID [facility] Last Admin: 03/23/19 09:25 Dose: 300 mg Hydroxyzine HCl (Atarax) 25 mg PO BID PRN PRN Reason: Itching Sodium Chloride (Normal Saline) 1,000 mls @ 125 mls/hr IV ASDIRECTED [facility] Last Admin: 03/23/19 03:35 Dose: 125 mls/hr Metformin HCl (Glucophage) 500 mg PO BIDMEALS [facility] Last Admin: 03/23/19 09:26 Dose: 500 mg Midodrine (Midodrine) 10 mg PO TIDAC [facility] Last Admin: 03/23/19 09:26 Dose: 10 mg Naproxen (Naprosyn) 500 mg PO BIDMEALS [facility] Last Admin: 03/23/19 09:25 Dose: 500 mg Non-Formulary Medication (Diclofenac Sodium [Voltaren]) 75 mg PO BIDMEALS [facility] Non-Formulary Medication (Dronabinol [Marinol]) 5 mg PO BID [facility] Non-Formulary Medication (Psyllium Husk [Metamucil]) 660 gm PO DAILY [facility] Ondansetron HCl (Zofran Odt) 8 mg PO Q8H PRN PRN Reason: Nausea Sodium Chloride (Sodium Chloride) 2 gm PO TIDMEALS [facility] Last Admin: 03/23/19 09:33 Dose: Not Given Discontinued Medications Sodium Chloride (Normal Saline) 1,000 mls @ 999 mls/hr IV .BOLUS ONE Stop: 03/21/19 13:05 Last Admin: 03/21/19 12:12 Dose: 999 mls/hr - Exam General: Reports: Alert, Oriented Neck: Reports: Supple Lungs: Reports: Clear to Auscultation, Normal Respiratory Effort GI/Abdominal Exam: Normal Bowel Sounds, Soft, Non-Tender Extremities: No Pedal Edema Skin: Reports: Warm Neurological: Reports: No New Focal Deficit Psy/Mental Status: Reports: Alert, Normal Affect, Normal Mood
== END 2019-03-23 14:30 | disposition home or self-care (01) ==
LOC: DL.ED 11:00 → UNDOADMOB 12:49 → DL.MS 12:49
PROVIDERS: ADMIT Internal Medicine; ATTEND Internal Medicine
DX: R53.1 Weakness (principal); D64.9 Anemia, unspecified; D70.9 Neutropenia, unspecified; R19.7 Diarrhea, unspecified; E11.9 Type 2 diabetes mellitus without complications; I10 Essential (primary) hypertension; M19.90 Unspecified osteoarthritis, unspecified site; Z79.899 Other long term (current) drug therapy; Z79.82 Long term (current) use of aspirin; Z79.84 Long term (current) use of oral hypoglycemic drugs; Z79.2 Long term (current) use of antibiotics; E78.00 Pure hypercholesterolemia, unspecified; Z87.891 Personal history of nicotine dependence; Z88.1 Allergy status to other antibiotic agents; Z88.8 Allergy status to other drugs, medicaments and biological substances; Z88.7 Allergy status to serum and vaccine
CPT/HCPCS: 36415; 71046; 80048; 80053; 81001; 82607; 82728; 82746; 82962; 83540; 83550; 83735; 83880; 84484; 85025; 87086; 93005; 96360; 96361; 97161-GP; 97165-GO; 99285-25; A9270-GY; G0378; J1642; J7030

== ENCOUNTER 2020-06-01 12:17 | Emergency (ER) | payer MEDICARE, MEDICAID ==
[2020-06-01] MEDS ORDERED: cefTRIAXone 1 GM in Sodium Chloride 0.9% 50 ML IV ONE (13:05)
--- NOTE | 2020-06-01 13:20 | EDM.PDOC ---
ED HPI GENERAL MEDICAL PROBLEM - General Chief Complaint: Upper Extremity Injury/Pain Stated Complaint: INFECTION ON ARM [id number] Time Seen by Provider: 06/01/20 12:55 Source of Information: Reports: Patient, RN History Limitations: Reports: No Limitations - History of Present Illness INITIAL COMMENTS - FREE TEXT/NARRATIVE: 79-year-old male who presents to the ER with complaints of right elbow pain. Patient reports injuring his right elbow on the toilet tissue standing up from 1 week ago while trying to grab his cane. He states the wound has been getting bigger in the last 1 week. He reports pain is getting worse. He admits to being unable to use his right elbow but the pain from the wound is irritation. He reports being diagnosed with lung cancer one year ago and was being treated with chemotherapy but he stopped as chemotherapy was hard on his system.he denies having any other complaints at this time. Denies fevers, chills, shortness of breath, chest pain, palpitation, leg swelling, abdominal pain, nausea or vomiting at this time Right Elbow Pain Score (Numeric/FACES): 10 - Related Data Allergies Allergy/AdvReac Type Severity Reaction Status Date / Time dapsone Allergy Cannot Verified 06/01/20 12:49 Remember isoniazid Allergy Nausea and Verified 06/01/20 12:49 Vomiting prochlorperazine Allergy Dizziness Verified 06/01/20 12:49 [From Compazine] tuberculin, purified protein Allergy Swelling Verified 06/01/20 12:49 deriva [Tuberculin,Purif.Prot.Deriv.] Home Meds: Home Meds Gabapentin [Neurontin] 300 mg PO TID 08/20/18 [History] atorvaSTATin [Lipitor] 10 mg PO BEDTIME 08/20/18 [History] Ondansetron [Zofran] 8 mg PO Q8H PRN 08/26/18 [History] Aspirin [Ecotrin EC] 81 mg PO BEDTIME 09/07/18 [History] Dutasteride 0.5 mg PO DAILY 09/07/18 [History] Midodrine 10 mg PO TIDAC 09/07/18 [History] Sodium Chloride 2 gm PO TIDMEALS 09/07/18 [History] dronabinoL [Marinol] 5 mg PO BID 09/07/18 [History] hydrOXYzine HCL [hydrOXYzine] 25 mg PO BID PRN 09/07/18 [History] metFORMIN [Glucophage] 500 mg PO BIDMEALS #60 tablet 09/13/18 [Rx] Diclofenac Sodium [Voltaren] 75 mg PO BIDMEALS 02/27/19 [History] Psyllium Husk [Metamucil] 660 gm PO DAILY #1 powder 03/19/19 [Rx] Ciprofloxacin HCl [Cipro] 500 mg PO BID #10 tablet 03/23/19 [Rx] Loperamide [Imodium] 2 mg PO Q6H PRN #10 cap 03/23/19 [Rx] Past Medical History HEENT History: Reports: Cataract, Hard of Hearing, Impaired Vision Cardiovascular History: Reports: Aneurysm, High Cholesterol, Hypertension, PVD, Other (See Below) Other Cardiovascular History: buergers disease Respiratory History: Reports: TB, Other (See Below) Other Respiratory History: latent TB; Genitourinary History: Reports: None Musculoskeletal History: Reports: Arthritis, Back Pain, Chronic, Osteoarthritis Neurological History: Reports: None Psychiatric History: Reports: None Endocrine/Metabolic History: Reports: Diabetes, Type II Hematologic History: Reports: B12 Deficiency Immunologic History: Reports: None Oncologic (Cancer) History: Reports: Lung Dermatologic History: Reports: Eczema - Past Surgical History HEENT Surgical History: Reports: Cataract Surgery, Other (See Below) Other HEENT Surgeries/Procedures: eye ptosis surgery; facial reconstruction surgery Respiratory Surgical History: Reports: Lung Biopsies Musculoskeletal Surgical History: Reports: Other (See Below) Other Musculoskeletal Surgeries/Procedures:: knee surgery Oncologic Surgical History: Reports: Other (See Below) Other Oncologic Surgeries/Procedures: 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 ED EXAM, GENERAL - Physical Exam Exam: See Below Exam Limited By: No Limitations General Appearance: Alert, Mild Distress Ears: Hearing Grossly Normal Nose: Normal Inspection Throat/Mouth: Normal Oropharynx, No Airway Compromise Head: Atraumatic, Normocephalic Neck: Normal Inspection, Supple, Non-Tender, Full Range of Motion Respiratory/Chest: No Accessory Muscle Use, Chest Non-Tender, Decreased Breath Sounds (generalized) Cardiovascular: Normal Peripheral Pulses, Regular Rate, Rhythm, No Edema GI/Abdominal: Normal Bowel Sounds, Soft, Non-Tender, No Organomegaly, No Distention, No Abnormal Bruit, No Mass Back Exam: Normal Inspection Neurological: Alert, Oriented Psychiatric: Normal Affect, Normal Mood Skin Exam: Wound/Incision (multiple skin sores noted with healed scarson his back. Open sore noted on the right elbow. Not draining or redness at this time.) Lymphatic: No Adenopathy Course - Vital Signs Last Recorded V/S: Last Vital Signs Temp 97.7 F 06/01/20 12:42 Pulse 74 06/01/20 12:42 Resp 20 06/01/20 12:42 BP 91/62 06/01/20 12:42 Pulse Ox 95 06/01/20 12:42 - Orders/Labs/Meds Orders: Active Orders 24 hr Category Date Time Status CULTURE WOUND [RM] Stat Lab 06/01/20 12:55 Received Labs: Laboratory Tests 06/01/20 06/01/20 Range/Units 13:20 13:20 WBC 9.2 (5.0-10.0) 10^3/uL RBC 3.75 L (4.6-6.2) 10^6/uL Hgb 9.1 L D (14.0-18.0) g/dL Hct 28.5 L (40.0-54.0) % MCV 76.0 L D (80-100) fL MCH 24.3 L (27.0-34.0) pg MCHC 31.9 L (33.0-35.0) g/dL Plt Count 285 (150-450) 10^3/uL Neut % (Auto) 69.2 (42.2-75.2) % Lymph % (Auto) 19.2 L (20.5-50.1) % Harlan % (Auto) 7.7 (2-8) % Eos % (Auto) 3.7 H (1.0-3.0) % Baso % (Auto) 0.2 (0.0-1.0) % Sodium 136 (136-145) mmol/L Potassium 4.0 (3.5-5.1) mmol/L Chloride 103 (98-107) mmol/L Carbon Dioxide 25 (21-32) mmol/L Anion Gap 12.0 (7-13) mEq/L BUN 19 H (7-18) mg/dL Creatinine 1.25 (0.70-1.30) mg/dL Est Cr Clr Drug Dosing 41.93 mL/min Estimated GFR (MDRD) 56 BUN/Creatinine Ratio 15.2 (No establ ref range) Glucose 94 (74-99) mg/dL Calcium 8.6 (8.5-10.1) mg/dL Total Bilirubin 0.5 (0.2-1.0) mg/dL AST 12 L (15-37) U/L ALT 10 L (16-63) U/L Alkaline Phosphatase 104 (46-116) U/L Total Protein 8.2 (6.4-8.2) g/dL Albumin 2.6 L (3.4-5.0) g/dL Globulin 5.6 Albumin/Globulin Ratio 0.46 Meds: Medications Discontinued Medications Generic Name Dose Route Start Last Admin Trade Name Freq PRN Reason Stop Dose Admin Ceftriaxone Sodium 1 gm/ 50 mls @ 100 mls/hr 06/01/20 13:05 06/01/20 13:25 Sodium Chloride IV 06/01/20 13:34 100 mls/hr ONETIME ONE Administration Departure - Departure Time of Disposition: 14:18 Disposition: DC/Tfer to [facility]04 Condition: Fair Clinical Impression: Skin sore Anemia Qualifiers: Anemia type: unspecified type Qualified Code(s): D64.9 - Anemia, unspecified - Discharge Information Instructions: Anemia, Wound Infection, [id number], Wound Care, Adult Forms: ED Department Discharge Additional Instructions: Rocephin 1 g Iv administered in the ER Keep skin sores clean RX for Keflex Wound culture send Follow up with PCP for low Hgb workup and sore evaluation on wednesday Will be called with wound culture results. Sepsis Event Note (ED) - Evaluation Sepsis Screening Result: No Definite Risk - Focused Exam Vital Signs: Vital Signs Temp Pulse Resp BP Pulse Ox 06/01/20 12:42 97.7 F 74 20 91/62 95 - My Orders Last 24 Hours: My Active Orders 06/01/20 12:55 CULTURE WOUND [RM] Stat - Assessment/Plan Last 24 Hours: My Active Orders 06/01/20 12:55 CULTURE WOUND [RM] Stat
[2020-06-01] MEDS ORDERED: Bacitracin Oint 1 GM U/D Packet TOP ONE (14:28)
== END 2020-06-01 14:56 ==
LOC: DL.ED 12:17
DX: L98.9 Disorder of the skin and subcutaneous tissue, unspecified (principal); D64.9 Anemia, unspecified; E78.00 Pure hypercholesterolemia, unspecified; I10 Essential (primary) hypertension; E11.51 Type 2 diabetes mellitus with diabetic peripheral angiopathy without gangrene; M19.90 Unspecified osteoarthritis, unspecified site; Z88.8 Allergy status to other drugs, medicaments and biological substances; Z79.82 Long term (current) use of aspirin; Z79.84 Long term (current) use of oral hypoglycemic drugs
CPT/HCPCS: 36415; 80053; 85025; 87070; 96365; 99284; J0696; J7050; 87077; 87186; 99283